=== PATIENT | male | born 1960 | race Caucasian/White ===

== ENCOUNTER 2023-05-10 10:27 | Outpatient (REF) | payer OTHER, MEDICAID, SELFPAY ==
[2023-05-10 14:05] LABS: Alanine Aminotransferase 23 U/L (0-40); Alkaline Phosphatase 103 U/L (39-117); Anion Gap 12 (12-20); Aspartate Amino Transferase 17 U/L (5-37); Bilirubin Total 0.5 mg/dL (0.0-1.0); Blood Urea Nitrogen 13 mg/dL (9-16); Calcium 9.5 mg/dL (8.4-10.2); Carbon Dioxide 28 mmol/L (22-29); Chloride 106 mmol/L (96-108); Cholesterol 112 mg/dL; Estimated Glomerular Filt Rate > 60; Glucose Fasting 133 mg/dL (60-99); HDL Cholesterol 33 mg/dL; LDL Cholesterol Calculated 60 mg/dl; Potassium 4.5 mmol/L (3.3-5.1); Sodium 141 mmol/L (135-145); Total Protein 6.6 g/dL (6.5-8.0); Triglycerides 99 mg/dL
[2023-05-10 14:13] LABS: Estimated Average Glucose 140 mg/dL; Hemoglobin A1c % 6.5 %
== END 2023-05-10 10:28 | disposition home or self-care (01) ==
LOC: HO.WFDLDS 10:27
PROVIDERS: Visit Provider Family Medicine
DX: Z00.00 Encounter for general adult medical examination without abnormal findings (principal); E78.5 Hyperlipidemia, unspecified; E11.9 Type 2 diabetes mellitus without complications
CPT/HCPCS: 36415; 80053; 80061; 83036

== ENCOUNTER 2023-07-09 11:55 | Outpatient (AMB) | payer OTHER, MEDICAID, SELFPAY ==
[2023-07-09 12:12] VITALS: BP 130/68; PULSE 68; O2SAT 95
--- NOTE | 2023-07-09 12:12 | MHC.PC.OV ---
Vital Signs 07/09/23 12:12 Height 5 ft 6.5 in Weight 189 lb BMI 30.0 BP 130/68 Blood Pressure Location Rt brachial Position Sitting Pulse 68 Pulse Source Pulse Oximeter Pulse Oximetry (%) 95 Oxygen Delivery Method Room Air Intake Visit Reasons: f/u diabetes and hypertension Intake Note: Patient is here to follow up on his diabetes and hypertension. Allergies No Known Allergies Allergy (Verified 07/09/23 12:14) Tobacco use date assessed: 07/09/23 Dental Screening Dental Screen Date: 07/09/23 Did you have a dental visit in the last 12 months?: Yes Did you have a dental problem in the last 6 months where you did not have access to dental care?: No Was dental information given to patient?: No HPI f/u diabetes and hypertension HPI Details 62 y/o male presents to f/u diabetes and hypertension. Blood pressure today 130/68. He is on spirinolactone 12.5mg daily and losartan 100mg daily. Also on metoprolol 100mg daily. He is on metformin 1000mg b.i.d., Jardiance 10mg and insulin glargine 20 units. He is tolerating his medication regimen well. He denies any low blood sugars. He reports morning blood sugars in the 90s-110s. Last A1c 05/10/23 6.5%. Pt reports pruritus on the top of his thighs. Pt reports hearing changes bilateral ears. HPI Comments History of Present Illness Details Documentation assistance for Delroy Haile MD, was provided by Andrade Zepeda, Floor Covering Installer on 07/09/2023 12:47 PM EST. I, Dr. Haile, have read, observed, and verified documentation. [facility] Social History Housing: House Patient Tobacco Use Status: Current everyday Tobacco user Tobacco use type: Cigarette Cigarettes Per Day: 15 e-Cigarette/Vaping Use: Never Used Second Hand Smoke Exposure: No service: No Current occupational status: retired and disabled Current occupational exposures/hazards: No Hearing needs: No Vision needs: No Physical exam (Primary Care) Vital Signs: Last Vital Signs Pulse 68 07/09/23 12:12 BP 130/68 07/09/23 12:12 Pulse Ox 95 07/09/23 12:12 Oxygen Delivery Method Room Air 07/09/23 12:12 BMI result Body Mass Index 30.0 Tobacco/Smoking Status: Tobacco use Status Tobacco use date assessed 07/09/23 07/09/23 12:17 Patient Tobacco Use Status Current everyday Tobacco 07/09/23 12:17 Tobacco use type Cigarette 07/09/23 12:17 e-Cigarette/Vaping Use Never Used 07/09/23 12:17 Assessment and Plan Assessment & Plan (1) Diabetes: Code(s): E11.9 - Type 2 diabetes mellitus without complications Plan: A1c 2 months ago was 6.5% which is good control. Goal is less than 7.0% His blood sugars at home are well controlled Continue current medication regimen (2) Hypertension: Code(s): I10 - Essential (primary) hypertension Plan: Blood pressure is controlled. Goal is less than 130/80 Continue current medications (3) Yeast infection of the skin: Code(s): B37.2 - Candidiasis of skin and nail Plan: Will give him a script for clotrimazole Avoid excess moisture (4) Hearing loss: Code(s): H91.90 - Unspecified hearing loss, unspecified ear Plan: Patient wants a referral to a specific ENT specialist but he does not know the name today. He will call me with the name and I will make the referral. Medications: New clotrimazole 1% 1 appl topical BID 45 grams 0RF 2 weeks Coding Level of Care Code Est Pt Level 4 (37572) Diagnoses Diabetes E11.9 Hypertension I10 Yeast infection of the skin B37.2 Hearing loss H91.90
== END 2023-07-09 12:55 | disposition home or self-care (01) ==
PROVIDERS: PCP Family Medicine; Visit Provider Family Medicine
DX: E11.9 Type 2 diabetes mellitus without complications (principal); I10 Essential (primary) hypertension; B37.2 Candidiasis of skin and nail; H91.90 Unspecified hearing loss, unspecified ear
CPT/HCPCS: 99214

== ENCOUNTER 2023-12-27 10:29 | Outpatient (AMB) | payer MEDICARE, MEDICAID, SELFPAY ==
[2023-12-27 10:41] VITALS: BP 128/78; PULSE 99; O2SAT 95; BMI 29.0
--- NOTE | 2023-12-27 10:41 | A.OFFPC_ITS ---
Vital Signs 12/27/23 10:41 Height 5 ft 6.5 in Weight 182 lb 2 oz BMI 29.0 BP 128/78 Pulse 99 Pulse Source Pulse Oximeter Pulse Oximetry (%) 95 Oxygen Delivery Method Room Air Intake Visit Reasons: f/u diabetes and hypertension Intake Note: Patient is following up on hypertension and diabetes. Patient needs refill on Lantus Solostar pen, viagra today. Allergies No Known Allergies Allergy (Verified 12/27/23 11:17) Tobacco use date assessed: 12/27/23 Dental Screening Dental Screen Date: 12/27/23 Did you have a dental visit in the last 12 months?: No Did you have a dental problem in the last 6 months where you did not have access to dental care?: No Was dental information given to patient?: Patient declined HPI HPI Comments History of Present Illness Details 6.2% Hga1c today Finger sticks reports WNL DM EYE exam - Jan 03, 2024 Unsure of who the provider is Intentional wt loss reports no issues w/ Feet HTN well controlled on current meds. NO cardiac complaints PFSH Social History Housing: House Patient Tobacco Use Status: Current everyday Tobacco user Tobacco use type: Cigarette Cigarettes Per Day: 15 e-Cigarette/Vaping Use: Never Used Second Hand Smoke Exposure: No service: No Current occupational status: retired and disabled Current occupational exposures/hazards: No Hearing needs: No Vision needs: No Questionnaire PHQ-9 Over the last 2 weeks, how often have you been bothered by any of the following problems? 1. Little interest or pleasure in doing things: several days 2. Feeling down, depressed, or hopeless: several days 3. Trouble falling or staying asleep, or sleeping too much: nearly every day 4. Feeling tired or having little energy: nearly every day 5. Poor appetite or overeating: more than half the days 6. Feeling bad about yourself - or that you are a failure or have let yourself or your family down: not at all 7. Trouble concentrating on things, such as reading the newspaper or watching television: not at all 8. Moving or speaking so slowly that other people could have noticed. Or the opposite - being so fidgety or restless that you have been moving around a lot more than usual: not at all 9. Thoughts that you would be better off or of hurting yourself in some way: not at all Total score: 10 Depression Screening Interpretation: Negative Depression Screening Done: Yes Source: Developed by Drs. Escobar Nelson, Anna Malik, Franck Bergman and colleagues, with an educational francesca from [employer]. Thrive Questionnaire Date Thrive assessed: 12/27/23 I am a: Patient What is your living situation today?: I have a steady place to live Within the past 12 months, did the food you bought not last and you didn't have the money to get more?: Never true Within the past 12 months, did you worry whether your food would run out before you got money to buy more?: Never true Do you have trouble paying for medicines?: No Do you have trouble getting transportation to medical appointments?: No Do you have trouble paying your heating and electricity bill?: No Do you have trouble taking care of your child, family member or friend?: No Do you have trouble with day-to-day activities such as bathing, preparing meals, shopping, managing finances, etc.?: No Are you currently unemployed and looking for a job?: No Are you interested in more education?: No THRIVE Score: 0 AUDIT C Alcohol Use Questionnaire (AUDIT-C) 1. How often do you have a drink containing alcohol?: Monthly or less 2. How many drinks containing alcohol do you have on a typical day when you are drinking?: 1 or 2 3. How often do you have six or more drinks on one occasion?: Never Total Score: 1 DOROTEO-7 AMB Questionnaire DOROTEO-7 Date DOROTEO - 7 assessed: 12/27/23 Feeling nervous, anxious, or on edge: 2 = More than half the days Not being able to stop or control worryin = Nearly every day Worrying too much about different things: 1 = Several days Trouble relaxin = Several days Being so restless that it is hard to sit still: 1 = Several days Becoming easily annoyed or irritable: 1 = Several days Feeling afraid as if something awful might happen: 1 = Several days Total DOROTEO-7 score (0-4 normal; 5-9 mild; 10-14 moderate; 15-21 severe): 10 Source: Developed by Drs. Escobar Nelson, Anna Malik, Franck Bergman and colleagues, with an educational francesca from [employer]. Review of Systems Const All systems reviewed & are unremarkable except as noted in HPI and below Physical exam (Primary Care) Vital Signs: Last Vital Signs Pulse 99 12/27/23 10:41 BP 128/78 12/27/23 10:41 Pulse Ox 95 12/27/23 10:41 Oxygen Delivery Method Room Air 12/27/23 10:41 BMI result Body Mass Index 29.0 Tobacco/Smoking Status: Tobacco use Status Tobacco use date assessed 12/27/23 12/27/23 10:48 Patient Tobacco Use Status Current everyday Tobacco 12/27/23 10:48 Tobacco use type Cigarette 12/27/23 10:48 e-Cigarette/Vaping Use Never Used 12/27/23 10:48 Are you ready to quit: No Tobacco cessation counseling provided: Yes Number of minutes spent counselin CPT code: 20811 - 4-10 Minutes PHQ-9: PHQ-9 Score PHQ-9: Total score 10 12/27/23 14:21 Depression Screening Interpretation: Negative Thrive Assessment: Date of Thrive Assessment Date Thrive assessed 12/27/23 12/27/23 10:56 Const Other: awake alert unkempt MMM RRR LS CTAB hairless lower ext, trace edema Feet not examined today Results AMB Hemoglobin A1c AMB Hemoglobin A1c 6.2 % Last Edit by Ivy Amaya CMA on 12/27/23 11:17 Results Reviewed Results Reviewed: Laboratory Last Values Hgb A1c (Clinic) 6.2 % (4.0-6.0) H 12/27/23 11:15 Assessment and Plan Assessment & Plan (1) Diabetes: Code(s): E11.9 - Type 2 diabetes mellitus without complications Qualifiers: Diabetes mellitus type: type 2 Diabetes mellitus termite exterminator insulin use: with termite exterminator use Diabetes mellitus complication status: with other specified complication Qualified Code(s): E11.69 - Type 2 diabetes mellitus with other sp ecified complication; Z79.4 - residential (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 (2) Hypertension: Code(s): I10 - Essential (primary) hypertension Qualifiers: Hypertension type: secondary to endocrine disorders Qualified Code(s): I15.2 - Hypertension secondary to endocrine disorders (3) Erectile dysfunction: Code(s): N52.9 - Male erectile dysfunction, unspecified Qualifiers: Erectile dysfunction type: unspecified Qualified Code(s): N52.9 - Male erectile dysfunction, unspecified Plan A1c reviewed with him today. He is due for labs. Reports that he wishes to wait for his primary care to order these at his next visit scheduled in March. He should continue his diabetes regimen to include his insulin and his oral medications. I have sent in refills for him as requested. His blood pressure is well controlled on current medications. He should continue to take them as directed. He should follow low-salt diet. Monitor blood pressure at home. Report readings also normal range. Annual diabetic eye exam recommended. Foot care reviewed. Tobacco cessation encouraged. Refill sent on Viagra as requested. Reports that he has been taking p.r.n. for some time with no cardiac events. Total time spent caring for the patient today was 37 minutes. This includes time spent before the visit reviewing the chart, time spent during the visit, and time spent after the visit on documentation Orders: Orders AMB Hemoglobin A1c Today Z13.9 - Encounter for screening, unspecified Medications: Refilled insulin glargine (Lantus Solostar U-100 Insulin) 20 units (0.2 mL) subcut QPM 30 days 6 mL 3RF sildenafil 100 mg PO DAILY 30 days 30 tabs 4RF insulin glargine (Lantus Solostar U-100 Insulin) 20 units (0.2 mL) subcut QPM 30 days 6 mL 3RF sildenafil 100 mg PO DAILY 30 days 30 tabs 4RF Coding Level of Care Code Est Pt Level 4 (08677) Diagnoses Type 2 diabetes mellitus with other specified complication, with long-term current use of insulin E11.69; Z79.4 Diabetes mellitus type: type 2 Diabetes mellitus custodial insulin use: with termite exterminator use Diabetes mellitus complication status: with other specified complication Hypertension due to endocrine disorder I15.2 Hypertension type: secondary to endocrine disorders Erectile dysfunction, unspecified erectile dysfunction type N52.9 Erectile dysfunction type: unspecified Additional Codes Vital Signs *Quality* - CPT code: 07980 - 4-10 Minutes ([id number])
== END 2023-12-27 11:27 | disposition home or self-care (01) ==
PROVIDERS: PCP Family Medicine; Visit Provider Nurse Practitioner Family
DX: E11.69 Type 2 diabetes mellitus with other specified complication (principal); Z79.4 Long term (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; I15.2 Hypertension secondary to endocrine disorders; N52.9 Male erectile dysfunction, unspecified
CPT/HCPCS: 83036; 99214

== ENCOUNTER 2024-05-19 14:44 | Outpatient (AMB) | payer MEDICARE, MEDICAID, SELFPAY ==
[2024-05-19 14:48] VITALS: BP 128/72; PULSE 100; O2SAT 96; BMI 27.0
--- NOTE | 2024-05-19 14:48 | A.OFFPC_ITS ---
Vital Signs 05/19/24 14:48 Height 5 ft 6.5 in Weight 170 lb 2 oz BMI 27.0 BP 128/72 Blood Pressure Location Lt brachial Position Sitting Pulse 100 Pulse Source Pulse Oximeter Pulse Oximetry (%) 96 Oxygen Delivery Method Room Air Intake Visit Reasons: Pain Mgmt Intake Note: Patient is concerned about passing gas a lot lately, states he may be due for his colonoscopy. Allergies No Known Allergies Allergy (Verified 05/19/24 14:55) Medication List - Last Reconciled 05/19/24 by Delroy Haile MD atorvastatin 40 mg PO DAILY 90 days bupropion HCl SR 200 mg PO BID buspirone 15 mg PO BID clotrimazole 1% 1 appl topical BID 2 weeks empagliflozin (Jardiance) 10 mg PO DAILY fluoxetine 40 mg PO DAILY insulin glargine (Basaglar KwikPen U-100 Insulin) 20 units (0.2 mL) subcut DAILY 30 days insulin glargine (Lantus Solostar U-100 Insulin) 20 units (0.2 mL) subcut QPM 30 days losartan 100 mg PO DAILY metformin 1,000 mg PO BID 90 days metoprolol succinate ER 100 mg PO DAILY nicotine (polacrilex) 2 mg buccal Q4H PRN 28 days olanzapine 2.5 mg PO BEDTIME PRN pen needle, diabetic (BD Mildred 2nd Gen Pen Needle) Daily As directed, 90 days sildenafil 100 mg PO DAILY 30 days spironolactone 12.5 mg PO DAILY topiramate 150 mg PO BEDTIME trazodone 200 mg PO BEDTIME PRN Tobacco use date assessed: 05/19/24 Dental Screening Dental Screen Date: 12/27/23 HPI Pain Mgmt HPI Details 63 y/[facility] male [facility] A1c today 05/19/24 is 5.7%. Blood pressure today 128/72. He is on losartan 100mg, metoprolol 100mg daily and spironolactone 12.5mg daily. Pt has complaints of gassiness. [facility] Social History Housing: House Patient Tobacco Use Status: Current everyday Tobacco user Tobacco use type: Cigarette Cigarettes Per Day: 15 e-Cigarette/Vaping Use: Never Used Second Hand Smoke Exposure: No service: No Current occupational status: retired and disabled Current occupational exposures/hazards: No Hearing needs: No Vision needs: No Questionnaire Thrive Questionnaire Date Thrive assessed: 12/27/23 DOROTEO-7 AMB Questionnaire DOROTEO-7 Date DOROTEO - 7 assessed: 12/27/23 Source: Developed by Drs. Escobar Nelson, Anna Malik, Franck Bergman and colleagues, with an educational francesca from [employer]. Review of Systems Const Denies chills, Denies fatigue, Denies fever(s), Denies headache(s) and Denies weakness Eyes Denies change in vision ENT Denies dizziness, Denies headache(s), Denies hearing loss, Denies nasal congestion, Denies sinus pain, Denies sinus pressure and Denies sore throat Card Denies chest pain, Denies lightheadedness, Denies dyspnea and Denies other (palpitations) Resp Denies cough, Denies dyspnea and Denies wheezing GI Denies abdominal pain, Denies melena, Denies hematochezia, Denies change in bowel habits, Denies dyspepsia and Denies nausea Denies hematuria and Denies dysuria Musc Denies abnormal gait, Denies myalgias, Denies arthralgias, Denies numbness and Denies tingling Skin/Breast Denies rash, Denies unusual bruising and Denies wounds Neuro Denies abnormal gait, Denies dizziness, Denies headache(s), Denies memory loss, Denies numbness, Denies Sensory deficit (Neuro), Denies tingling and Denies weakness Psych Denies anxiety, Denies depression and Denies memory loss Endo Denies cold intolerance, Denies fatigue, Denies heat intolerance, Denies polydipsia and Denies polyuria David/Lymph Denies easy bleeding and Denies easy bruising Aller/Immun Denies wheezing Physical exam (Primary Care) Vital Signs: Last Vital Signs Pulse 100 05/19/24 14:48 BP 128/72 05/19/24 14:48 Pulse Ox 96 05/19/24 14:48 Oxygen Delivery Method Room Air 05/19/24 14:48 BMI result Body Mass Index 27.0 Tobacco/Smoking Status: Tobacco use Status Tobacco use date assessed 05/19/24 05/19/24 14:55 Patient Tobacco Use Status Current everyday Tobacco 05/19/24 14:49 Tobacco use type Cigarette 05/19/24 14:49 e-Cigarette/Vaping Use Never Used 05/19/24 14:49 Thrive Assessment: Date of Thrive Assessment Date Thrive assessed 12/27/23 05/19/24 14:49 Const General: no acute distress, well developed, alert and awake Nutritional Appearance: well nourished Orientation/consciousness: patient oriented x3 HENMT Head: Yes normocephalic and Yes atraumatic Ears: hearing grossly normal bilaterally and TM's normal bilaterally General nose exam: Normal external nose present and Normal nares present Mouth: Normal oral and palatal mucosa present and moist mucous membranes Teeth and gingiva: dentition normal Throat: Yes posterior oropharynx normal Eyes General: appearance normal, both eyes and all related structures Pupils: Equal, round and reactive pupils present and Pupil accommodation reflex normal EOM: EOMs intact bilaterally Neck Neck: Yes normal visual inspection, Yes no lymphadenopathy and Yes trachea midline Thyroid: Thyroid normal Carotids: no bruits Lymphatic: no lymphadenopathy noted Chest Chest palpation & inspection: normal inspection of the chest Resp Effort & Inspection: normal respiratory effort Auscultation: clear to auscultation bilaterally Cardio Rate: regular rate Rhythm: regular rhythm Heart sounds: S1 normal heart sound present, S2 normal heart sound present, no gallops, no murmurs and no rubs Bruits: no abdominal aortic bruits and no carotid bruits GI Palpation (GI): No Abdominal aortic bruit present, Soft to palpation, nontender, No hepatosplenomegaly present and No Rebound tenderness present Auscultation: normal bowel sounds General: Yes no CVA tenderness Back/Spine/Pelvis Back: no CVA tenderness Cervical Spine: cervical ROM normal and No Cervical spine tenderness Thoracic/Lumbar Spine: thoraco-lumbar ROM normal, No pain with thoraco-lumbar ROM, No thoracic spinal tenderness and No lumbar spinal tenderness Skin Lesions: no lesions Rashes: no rashes Trauma: no lacerations or abrasions Wounds: no wounds Nails: normal Neuro General: patient oriented x3 Cranial nerves: Yes Equal, round and reactive pupils present Cognition (Neuro): normal cognition Gait exam (Neuro): Normal gait present Motor exam (neuro): 5/5 motor strength present throughout Sensory Exam: No Sensory deficit (Neuro) Deep tendon reflexes (DTR's): Right patellar reflex intensity grade: 2+ and Left patellar reflex intensity grade: 2+ Extrem General: Yes normal to inspection and No edema Psych Appearance: grossly normal Affect: normal affect Attitude: cooperative Thought process: Normal thought process present Results AMB Hemoglobin A1c AMB Hemoglobin A1c 5.7 % Last Edit by Ivy Amaya CMA on 05/19/24 15:14 Assessment and Plan Assessment & Plan (1) Hypertension: Code(s): I10 - Essential (primary) hypertension Qualifiers: Hypertension type: secondary to endocrine disorders Qualified Code(s): I15.2 - Hypertension secondary to endocrine disorders Plan: Blood?pressure?is?controlled.??Goal?is?less?than?130/80 Continue?current?medication?regimen (2) Diabetes: Code(s): E11.9 - Type 2 diabetes mellitus without complications Qualifiers: Diabetes mellitus complication status: with other specified complication Diabetes mellitus terminal makeup operator insulin use: with penitentiary use Diabetes mellitus type: type 2 Qualified Code(s): E11.69 - Type 2 diabetes mellitus with other specified complication; Z79.4 - custodial (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 Plan: A1c?5.7%?shows?good?control.??Goal?is?less?than?7.0% Continue?current?medication (3) Coronary artery disease: Code(s): I25.10 - Atherosclerotic heart disease of [place] coronary artery without angina pectoris Plan: Stable Follow-up?with?Cardiology?as?recommended (4) Screening for colon cancer: Code(s): Z12.11 - Encounter for screening for malignant neoplasm of colon Plan: Patient?is?uncertain?when?his?last?colonoscopy?was?but?thinks?it?may?h ave?been?around?7?years?ago?and?he?does?note?that?he?has?had?some?polyps?in?the? past. Referred?back?to?Dr. Prater (5) Gassiness: Code(s): R14.0 - Abdominal distension (gaseous) Plan: Trial?simethicone Smaller?meals Increase?hydration Follow-up?with?Gastroenterology If?worsening?or?not?improving,?he?can?get?GI?panel?done. Orders: Orders AMB Hemoglobin A1c Today Z13.9 - Encounter for screening, unspecified Lipid Panel Today Z00.00 - Encounter for general adult medical examination without abnormal findings UA and rflx microscopic Today Z00.00 - Encounter for general adult medical examination without abnormal findings TSH reflex Free T4 Today Z00.00 - Encounter for general adult medical exa mination without abnormal findings GI Panel Today R14.0 - Abdominal distension (gaseous) Comprehensive [place]. Panel Fast Today Z00.00 - Encounter for general adult medical examination without abnormal findings Microalbumin, Random (w Creat) Today I10 - Essential (primary) hypertension Referrals Gastroenterology Referral R14.0 - Abdominal distension (gaseous), Z12.11 - Encounter for screening for malignant neoplasm of colon Medications: New simethicone 80 mg PO BID-QID 30 days PRN 120 tabs 2RF Gas Coding Level of Care Code Est Pt Level 4 (93810) Diagnoses Hypertension due to endocrine disorder I15.2 Hypertension type: secondary to endocrine disorders Type 2 diabetes mellitus with other specified complication, with long-term current use of insulin E11.69; Z79.4 Diabetes mellitus complication status: with other specified complication Diabetes mellitus penitentiary insulin use: with terminal makeup operator use Diabetes mellitus type: type 2 Coronary artery disease I25.10 Screening for colon cancer Z12.11 Gassiness R14.0
== END 2024-05-19 15:29 | disposition home or self-care (01) ==
PROVIDERS: PCP Family Medicine; Visit Provider Family Medicine
DX: I15.2 Hypertension secondary to endocrine disorders (principal); E11.69 Type 2 diabetes mellitus with other specified complication; Z79.4 Long term (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; I25.10 Atherosclerotic heart disease of native coronary artery without angina pectoris; Z12.11 Encounter for screening for malignant neoplasm of colon; R14.0 Abdominal distension (gaseous)
CPT/HCPCS: 83036; 99214

== ENCOUNTER 2024-08-26 11:24 | Outpatient (AMB) | payer MEDICARE, MEDICAID, SELFPAY ==
--- NOTE | 2024-08-26 11:38 | A.OFFPC_ITS ---
Vital Signs 08/26/24 11:40 Height 5 ft 6.5 in Weight 150 lb 8 oz BMI 23.9 BP 110/60 Blood Pressure Location Rt brachial Position Sitting Respiration 16 Pulse 93 Pulse Source Pulse Oximeter Temp 97.7 F Temp Source Tympanic Pulse Oximetry (%) 98 Oxygen Delivery Method Room Air Intake Visit Reasons: lump pubic area Intake Note: lump in pubic area Allergies No Known Allergies Allergy (Verified 08/26/24 11:39) Tobacco use date assessed: 05/19/24 Dental Screening Dental Screen Date: 12/27/23 HPI lump pubic area 2 HPI Details 64 y/o male presents with complaints of a lump in his pubic area. He notes he noticed the lump a few months ago. Denies any pain associated with it. Denies any fevers/chills/night sweats. [facility] Social History Housing: House Patient Tobacco Use Status: Current everyday Tobacco user Tobacco use type: Cigarette Cigarettes Per Day: 15 e-Cigarette/Vaping Use: Never Used Second Hand Smoke Exposure: No service: No Current occupational status: retired and disabled Current occupational exposures/hazards: No Hearing needs: No Vision needs: No Questionnaire Thrive Questionnaire Date Thrive assessed: 12/27/23 DOROTEO-7 AMB Questionnaire DOROTEO-7 Date DOROTEO - 7 assessed: 12/27/23 Source: Developed by Drs. Escobar Nelson, Anna Malik, Franck Bergman and colleagues, with an educational francesca from [employer]. Review of Systems Const Denies chills, Denies fatigue, Denies fever(s), Denies headache(s) and Denies weakness ENT Denies dizziness and Denies headache(s) Card Denies dyspnea Resp Denies cough, Denies dyspnea, Denies wheezing and Denies other (shortness of breath) Musc Denies numbness and Denies tingling Neuro Denies dizziness, Denies headache(s), Denies numbness, Denies tingling and Denies weakness Psych Denies anxiety and Denies depression Endo Denies fatigue Aller/Immun Denies wheezing Physical exam (Primary Care) Vital Signs: Last Vital Signs Temp 97.7 F 08/26/24 11:40 Pulse 93 08/26/24 11:40 Resp 16 08/26/24 11:40 BP 110/60 08/26/24 11:40 Pulse Ox 98 08/26/24 11:40 Oxygen Delivery Method Room Air 08/26/24 11:40 BMI result Body Mass Index 23.9 Tobacco/Smoking Status: Tobacco use Status Tobacco use date assessed 05/19/24 08/26/24 11:42 Patient Tobacco Use Status Current everyday Tobacco 08/26/24 11:42 Tobacco use type Cigarette 08/26/24 11:42 e-Cigarette/Vaping Use Never Used 08/26/24 11:42 Thrive Assessment: Date of Thrive Assessment Date Thrive assessed 12/27/23 08/26/24 11:42 Const General: well developed; No acute distress Nutritional Appearance: well nourished Orientation/consciousness: patient oriented x3 HENMT Head: Yes normocephalic and Yes atraumatic Eyes General: appearance normal, both eyes and all related structures Pupils: Equal, round and reactive pupils present EOM: EOMs intact bilaterally Resp Effort & Inspection: normal respiratory effort Neuro General: patient oriented x3 and gait normal Cranial nerves: Yes Equal, round and reactive pupils present Psych Affect: normal affect Assessment and Plan Assessment & Plan (1) Inguinal mass: Code(s): R19.09 - Other intra-abdominal and pelvic swelling, mass and lump Plan: Patient?has?right?inguinal?mass?which?manually?reduces?but?returns. Begin?with?straining?during?bowel?movements. Likely?right?inguinal?hernia Will?check?ultrasound Referred?to?general?surgery Advised?patient?to go?to?ED?if?no?longer?manually?reducible,?any?fever,?chills,?nausea,?vomiting,?d ecreased?gas?or?bowel?movements. Hydrate?well?and?keep?bowel?movements?soft Orders: Orders US abdomen limited Today R19.09 - Other intra-abdominal and pelvic swelling, mass and lump Referrals General Surgery Referral R19.09 - Other intra-abdominal and pelvic swelling, mass and lump Coding Level of Care Code Est Pt Level 3 (80277) Diagnoses Inguinal mass R19.09
[2024-08-26 11:40] VITALS: BP 110/60; PULSE 93; RESP 16; TEMP 36.5; O2SAT 98; BMI 23.9
== END 2024-08-26 12:24 | disposition home or self-care (01) ==
PROVIDERS: PCP Family Medicine; Visit Provider Family Medicine
DX: R19.09 Other intra-abdominal and pelvic swelling, mass and lump (principal)

== ENCOUNTER → 2024-08-26 11:24 | Outpatient (BNVA) | payer MEDICARE, MEDICAID, SELFPAY | PROVIDERS: PCP Family Medicine; Visit Provider Family Medicine | DX: R19.09 Other intra-abdominal and pelvic swelling, mass and lump (principal) | CPT/HCPCS: 99212 ==

== ENCOUNTER 2024-09-11 08:40 | Outpatient (REF) | payer MEDICARE, MEDICAID, SELFPAY ==
[2024-09-11 11:18] LABS: Appearance Urine Clear; Color Urine Yellow; Glucose Urine UA >=1000 mg/dL (Negative); Leukocyte Esterase Urine Negative (Negative); Nitrite Urine Negative (Negative); Specific Gravity - Urine >= 1.030 (1.005-1.025); UMIC TRIGGER UA YES; Urine Blood Trace (Negative); Urine Ketones Trace mg/dL (Negative); Urine Protein Trace mg/dL (Neg-Trace)
[2024-09-11 11:25] LABS: Bacteria Urine None Seen (None Seen); Hyaline Casts Urine 0-2 /LPF (0-2); Squamous Epithelial Cell Urine 0-2 /HPF (0-2); WBC Urine 0-5 /HPF (0-5)
[2024-09-11 11:54] LABS: Creatinine Urine 135.33 mg/dL; Microalbum/Creatinine Ratio Ur 18.4 ug/mg cr (<30)
[2024-09-11 11:56] LABS: Alanine Aminotransferase 20 U/L (0-40); Albumin Level 4.1 g/dL (3.5-5.0); Alkaline Phosphatase 81 U/L (39-117); Anion Gap 13 (12-20); Aspartate Amino Transferase 18 U/L (5-37); Bilirubin Total 0.4 mg/dL (0.0-1.0); Blood Urea Nitrogen 22 mg/dL (9-16); Calcium 9.7 mg/dL (8.4-10.2); Carbon Dioxide 27 mmol/L (22-29); Chloride 108 mmol/L (96-108); Cholesterol 118 mg/dL (<200); Estimated Glomerular Filt Rate > 60; Glucose Fasting 97 mg/dL (60-99); HDL Cholesterol 38 mg/dL (>40); LDL Cholesterol Calculated 64 mg/dL (<100); Potassium 4.1 mmol/L (3.3-5.1); Sodium 144 mmol/L (135-145); Total Protein 6.9 g/dL (6.5-8.0); Triglycerides 83 mg/dL (<150)
[2024-09-11 12:15] LABS: TSH reflex Free T4 2.47 uIU/mL (0.32-4.0)
== END 2024-09-11 08:41 | disposition home or self-care (01) ==
LOC: HO.WFDLDS 08:40
PROVIDERS: Visit Provider Family Medicine
DX: Z00.00 Encounter for general adult medical examination without abnormal findings (principal); I10 Essential (primary) hypertension
CPT/HCPCS: 36415; 80053; 80061; 81001; 82043; 82570; 84443

== ENCOUNTER 2024-10-12 13:56 | Outpatient (AMB) | payer MEDICARE, MEDICAID, SELFPAY ==
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
[2024-10-12 14:10] VITALS: BP 100/50; PULSE 96; RESP 14; O2SAT 97; BMI 23.5
== END 2024-10-12 14:47 | disposition home or self-care (01) ==
PROVIDERS: PCP Family Medicine; Visit Provider Physician Assistant
DX: I15.2 Hypertension secondary to endocrine disorders (principal); E78.5 Hyperlipidemia, unspecified; E11.69 Type 2 diabetes mellitus with other specified complication; Z79.4 Long term (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; F41.8 Other specified anxiety disorders; F17.210 Nicotine dependence, cigarettes, uncomplicated; R05.3 Chronic cough; R63.4 Abnormal weight loss

== ENCOUNTER → 2024-10-12 13:56 | Outpatient (BNVA) | payer MEDICARE, MEDICAID, SELFPAY | PROVIDERS: PCP Family Medicine; Visit Provider Physician Assistant | DX: I15.2 Hypertension secondary to endocrine disorders (principal); E11.9 Type 2 diabetes mellitus without complications; E78.5 Hyperlipidemia, unspecified; F41.8 Other specified anxiety disorders; R05.3 Chronic cough; R63.4 Abnormal weight loss; F17.200 Nicotine dependence, unspecified, uncomplicated; Z79.4 Long term (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; Z71.6 Tobacco abuse counseling | CPT/HCPCS: 96127; 99212 ==

== ENCOUNTER 2024-10-12 14:52 | Outpatient (REF) | payer MEDICARE, MEDICAID, SELFPAY ==
[2024-10-12 17:39] LABS: Alanine Aminotransferase 31 U/L (0-40); Albumin Level 4.3 g/dL (3.5-5.0); Alkaline Phosphatase 84 U/L (39-117); Anion Gap 14 (12-20); Aspartate Amino Transferase 31 U/L (5-37); Bilirubin Total 0.3 mg/dL (0.0-1.0); Blood Urea Nitrogen 17 mg/dL (9-16); Calcium 9.6 mg/dL (8.4-10.2); Carbon Dioxide 20 mmol/L (22-29); Chloride 108 mmol/L (96-108); Estimated Glomerular Filt Rate > 60; Glucose Fasting 131 mg/dL (60-99); Potassium 4.1 mmol/L (3.3-5.1); Sodium 138 mmol/L (135-145); Total Protein 7.2 g/dL (6.5-8.0)
[2024-10-12 17:48] LABS: Creatinine Urine 71.01 mg/dL; Microalbum/Creatinine Ratio Ur 12.6 ug/mg cr (<30)
[2024-10-12 17:52] LABS: B Type Natriuretic Peptide 28 pg/mL (<100)
[2024-10-12 17:53] LABS: TSH reflex Free T4 1.83 uIU/mL (0.32-4.0)
[2024-10-12 18:08] LABS: Prostate Specific Antigen Scr < 0.10 ng/mL (<0.05-4.0)
[2024-10-13 03:28] LABS: CT PCR NOT DETECTED (Not Detect.); NG PCR NOT DETECTED (Not Detect.)
[2024-10-13 07:19] LABS: Estimated Average Glucose 117 mg/dL; Hemoglobin A1C 126.1927 umol/L; Hemoglobin A1c % 5.7 % (<6.0); Total Hemoglobin (HGBA1C) 3293.3795 umol/L
[2024-10-13 08:20] LABS: HIV AB/AG Nonreactive (Nonreactive); HIV Num 1 0.06 S/CO (0.00-0.99); ~HepC Num1 0.06 S/CO (0.00-0.79); ~Hepatitis C Antibody Nonreactive (Nonreactive)
[2024-10-13 08:29] LABS: Syphilis Screen Nonreactive (Nonreactive)
[2024-10-13 13:58] LABS: C Peptide 3.25 ng/mL (0.80-3.85)
[2024-10-16 20:38] LABS: Glutamic acid decarboxylase Ab <5 IU/mL (<5)
[2024-10-16 23:57] LABS: Islet Cell Antibody Screen NEGATIVE (NEGATIVE)
== END 2024-10-12 14:53 | disposition home or self-care (01) ==
LOC: HO.WFDLDS 14:52
PROVIDERS: Visit Provider Physician Assistant
DX: E11.9 Type 2 diabetes mellitus without complications (principal); Z79.4 Long term (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; F41.8 Other specified anxiety disorders; E78.5 Hyperlipidemia, unspecified; I15.2 Hypertension secondary to endocrine disorders; Z20.2 Contact with and (suspected) exposure to infections with a predominantly sexual mode of transmission; Z01.89 Encounter for other specified special examinations; Z12.5 Encounter for screening for malignant neoplasm of prostate
CPT/HCPCS: 80053; 82043; 82570; 83036; 83880; 84153; 84443; 84681; 86341; 86780; 86803; 87389; 87491; 87591

== ENCOUNTER 2024-11-12 15:08 | Outpatient (AMB) | payer MEDICARE, MEDICAID, SELFPAY ==
--- NOTE | 2024-11-12 15:30 | MHC.PC.OV ---
Vital Signs 11/12/24 15:32 Height 5 ft 6.5 in Weight 151 lb 2 oz BMI 24.0 BP 118/58 L Blood Pressure Location Lt brachial Position Sitting Pulse 93 Pulse Source Pulse Oximeter Pulse Oximetry (%) 97 Oxygen Delivery Method Room Air Intake Visit Reasons: labs, weight loss Intake Note: Follow up Supervisor Wash House Required: No Allergies No Known Allergies Allergy (Verified 10/12/24 14:03) Medication List - Last Reconciled 11/12/24 by Guera Vilchis PA-C atorvastatin 40 mg PO DAILY 90 days blood sugar diagnostic (FreeStyle Lite Strips) Use daily As directed to check blood glucose blood-glucose meter (FreeStyle Lite Meter kit) Use daily As directed to check blood sugars blood-glucose meter,continuous (FreeStyle Sheng 3 [place]) Use daily As directed to monitor blood glucose blood-glucose sensor (FreeStyle Sheng 3 Sensor device) Apply every 14 days As directed to monitor blood glucose bupropion HCl SR 200 mg PO BID buspirone 15 mg PO BID clotrimazole 1% 1 appl topical BID 2 weeks empagliflozin (Jardiance) 10 mg PO DAILY fluoxetine 40 mg PO DAILY glucose (Dex4 Glucose) 16 grams (4 x 4 gram) PO Q15M PRN insulin glargine (Lantus Solostar U-100 Insulin) 20 units (0.2 mL) subcut QPM 30 days lancets (FreeStyle Lancets) use daily as directed to check blood glucose losartan 25 mg PO DAILY metformin 1,000 mg PO BID 90 days metoprolol succinate ER 100 mg PO DAILY multivitamin 1 tab PO DAILY nicotine (polacrilex) 2 mg buccal Q4H PRN 28 days olanzapine 2.5 mg PO BEDTIME PRN pen needle, diabetic (BD Mildred 2nd Gen Pen Needle) Daily As directed, 90 days [probiotic .] sildenafil 100 mg PO DAILY 30 days simethicone 80 mg PO BID-QID PRN 30 days spironolactone 12.5 mg PO DAILY topiramate 150 mg PO BEDTIME trazodone 200 mg PO BEDTIME PRN Tobacco use date assessed: 10/12/24 Dental Screening Dental Screen Date: 10/12/24 HPI labs, weight loss HPI Details Patient is a 64-year-old male with a significant past medical history of coronary artery disease, type 2 diabetes, hypertension, hyperlipidemia, history of prostate cancer, anxiety, depression, erectile dysfunction presenting today for a follow up regarding his weight and labs. He states that he is worried because over the last year he has lost about 40 lbs. He states that he has a very limited appetite. His weight today is stable. No n/v/d. No abdominal pain. Just feeling tired. His CT scan is scheduled for next week. He does smoke and has since the age of 21. He is not in the low-dose CT scan screening program. He smokes about a pack a day. He does have a cough but states it is unchanged and he states that this is has smoker's cough. No night sweats or back pain. CV: BP today is 118/58. At our last I reduced his losartan as his blood pressure was 100/50. He is on losartan 50 mg, spironolactone 12.5 mg, metoprolol 100 mg daily. cholesterol is managed with atorvastatin. Follows with cardiology and booked in December. No cp, sob, palpitations. Endo: Dm is managed with lantus 20 units, jardiance 10 mg, and metformin 1000 mg. Last a1c was 5.7. No hypoglycemia. Dx around 2013 Psych: He is on wellbutrin, buspar, prozac, trazodone, topamax and olanzapine. No SI/HI. Urology: has a hx of prostate ca per pt around 2006. He states he had a total prostatectomy. Colonoscopy: Following with Marian[facility] and states that he just had this done last month and it was not successful. They have to redo it. Last one was 2013 and had a tubular adenoma. [facility] Social History (Reviewed 10/12/24 @ 14:08 by Karis Villarreal [facility] [place]) Housing: House Patient Tobacco Use Status: Current everyday Tobacco user Tobacco use type: Cigarette Cigarettes Per Day: 15 e-Cigarette/Vaping Use: Never Used Second Hand Smoke Exposure: No service: No Current occupational status: retired and disabled Current occupational exposures/hazards: No Hearing needs: No Vision needs: No Questionnaire Thrive Questionnaire Date Thrive assessed: 10/12/24 I am a: Patient What is your living situation today?: I have a steady place to live Within the past 12 months, did the food you bought not last and you didn't have the money to get more?: Sometimes True Within the past 12 months, did you worry whether your food would run out before you got money to buy more?: Sometimes True Do you have trouble paying for medicines?: No Do you have trouble getting transportation to medical appointments?: No Do you have trouble paying your heating and electricity bill?: No Do you have trouble taking care of your child, family member or friend?: No Do you have trouble with day-to-day activities such as bathing, preparing meals, shopping, managing finances, etc.?: No Are you currently unemployed and looking for a job?: I choose not to answer this question Are you interested in more education?: No Please select the resources that you would like help with: Food THRIVE Score: 2 DOROTEO-7 AMB Questionnaire DOROTEO-7 Date DOROTEO - 7 assessed: 10/12/24 Source: Developed by Drs. Escobar Nelson, Anna Malik, Franck Bergman and colleagues, with an educational francesca from [employer]. Physical exam (Primary Care) Vital Signs: Last Vital Signs Pulse 93 11/12/24 15:32 BP 118/58 L 11/12/24 15:32 Pulse Ox 97 11/12/24 15:32 Oxygen Delivery Method Room Air 11/12/24 15:32 BMI result Body Mass Index 24.0 Tobacco/Smoking Status: Tobacco use Status Tobacco use date assessed 10/12/24 11/12/24 15:34 Patient Tobacco Use Status Current everyday Tobacco 11/12/24 15:34 Tobacco use type Cigarette 11/12/24 15:34 e-Cigarette/Vaping Use Never Used 11/12/24 15:34 Thrive Assessment: Date of Thrive Assessment Date Thrive assessed 10/12/24 11/12/24 15:34 Const Orientation/consciousness: patient oriented x3 HENMT Ears: hearing grossly normal bilaterally Neck Thyroid: Thyroid normal Lymphatic: no lymphadenopathy noted Resp Auscultation: clear to auscultation bilaterally Cardio Rate: regular rate Rhythm: regular rhythm Heart sounds: S1 normal heart sound present and S2 normal heart sound present GI Inspection: Yes normal to inspection Palpation (GI): Soft to palpation and Other GI palpation findings present (nontender, no cva tenderness) Auscultation: normoactive bowel sounds Rectal Exam - Male: Yes deferred Skin General skin exam: no rashes or lesions noted Neuro General: patient oriented x3, gait normal and no focal motor deficits Results Reviewed Results Reviewed: Laboratory Tests 10/12/24 10/12/24 14:54 15:05 Sodium 138 Potassium 4.1 Chloride 108 Carbon Dioxide 20 L Fasting Glucose 131 H AST 31 ALT 31 B-Natriuretic Peptide 28 PSA Screen < 0.10 TSH 1.83 Microalb/Creat Ratio 12.6 Hepatitis C Ab (EIA) Nonreactive HIV 1&2 Ab/P24 Ag 4thGn Nonreactive Coding Level of Care Code Est Pt Level 4 (92143) Complex EM visit Add On G2211 Diagnoses Decreased hearing H91.90 Weight loss R63.4 Hypertension due to endocrine disorder I15.2 Hypertension type: secondary to endocrine disorders Assessment & Plan Assessment & Plan (1) Decreased hearing: Code(s): H91.90 - Unspecified hearing loss, unspecified ear Category: Medical Plan: Requests a referral to ENT today as he sometimes feels like it is hard to hear out of his ears. Does not want to see audiology prefers ENT. (2) Weight loss: Code(s): R63.4 - Abnormal weight loss Category: Medical Plan: Stable. We will follow up pending imaging. (3) Hypertension: Code(s): I10 - Essential (primary) hypertension Category: Medical Qualifiers: Hypertension type: secondary to endocrine disorders Qualified Code(s): I15.2 - Hypertension secondary to endocrine disorders Plan: We will reduce losartan further to 25 mg. Follow up in a couple months to be reassessed. Sooner if needed. Orders: Referrals Ear/Nose/Throat Referral H91.90 - Unspecified hearing loss, unspecified ear Medications: New losartan 25 mg PO DAILY 90 tabs 3RF Discontinued losartan Discontinued Reason: Doctor's Order 50 mg PO DAILY 90 tabs 2RF
[2024-11-12 15:32] VITALS: BP 118/58; PULSE 93; O2SAT 97; BMI 24.0
== END 2024-11-12 16:09 | disposition home or self-care (01) ==
PROVIDERS: PCP Family Medicine; Visit Provider Physician Assistant
DX: H91.90 Unspecified hearing loss, unspecified ear (principal); R63.4 Abnormal weight loss; I15.2 Hypertension secondary to endocrine disorders

== ENCOUNTER → 2024-11-12 15:08 | Outpatient (BNVA) | payer MEDICARE, MEDICAID, SELFPAY | PROVIDERS: PCP Family Medicine; Visit Provider Physician Assistant | DX: H91.90 Unspecified hearing loss, unspecified ear (principal); R63.4 Abnormal weight loss; I15.2 Hypertension secondary to endocrine disorders | CPT/HCPCS: 99212 ==

== ENCOUNTER 2024-12-22 15:59 | Outpatient (REF) | payer MEDICARE, SELFPAY ==
--- NOTE | ~2024-12-22 | CT_ITS ---
CLINICAL HISTORY: R05.3 - Chronic cough CT chest with contrast Comparison: None Findings: Heart is normal in size. There is a trace anterior pericardial effusion. Coronary artery calcifications are present. The visualized thyroid and mediastinum are unremarkable. There is eventration of the left hemidiaphragm. Mild linear atelectasis is seen in the lingula and left lower lobe. 3 mm subpleural left upper lobe nodule (axial image 27 of series 3) and 5 mm left lower lobe nodule (axial image 34) are present. Limited examination of the upper abdomen demonstrates a 2.2 cm lipid rich right adrenal gland adenoma. There is mild nonspecific thickening of bilateral adrenal glands. 8 mm nonobstructive left renal stone is present. There is also a 3.8 cm simple left renal cyst. Severe degenerative changes are seen in the spine. No acute osseous abnormality is identified. No aggressive lytic or blastic lesion is seen. IMPRESSION: 1. Eventration of the left hemidiaphragm with mild adjacent atelectasis in the left lower lobe and lingula. 2. 5 mm and 3 mm left lung nodules. According to Fleischner society guidelines, if patient is at high risk for neoplasm, follow-up CT chest in 12 months is optional. 3. 8 mm nonobstructive left renal stone. 4. Other findings as described. This document has been electronically signed by: Daniel Fink on 12/23/2024 08:56:12
--- NOTE | ~2024-12-22 | CT_ITS ---
CLINICAL HISTORY: R63.4 - Abnormal weight loss CT abdomen and pelvis with contrast Comparison: None Findings: For the lower thoracic and left hemidiaphragmatic findings please refer to the same-day chest CT report. A few too small to characterize hepatic hypodense/ intermediate density lesions. Bilateral adrenal gland hyperplasia measuring up to 18 mm in thickness. Simple left renal cyst and too small to characterize right renal hypodensity.Small bilateral nonobstructive renal stones. No hydronephrosis or perinephric fat stranding. Vascular calcifications. Colonic diverticulosis without diverticulitis. Moderate stool in the colon and rectum. No bowel obstruction. Appendix not individualized and therefore could not be evaluated. No evidence of right lower quadrant fatty inflammatory fat changes. Small uncomplicated fat containing right inguinal hernia. A few small foci of mild subcutaneous fat stranding in the superficial subcutaneous fat of the ventral abdominal wall may be due to scarring versus less likely cellulitis or contusion. Correlate clinically. Otherwise unremarkable abdominopelvic viscera. No evidence of enlarged lymphadenopathy. Spinal degenerative changes. Multilevel small Schmorl nodules. 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 Focal deformity of the anterior aspect of the S3 and S4 vertebral bodies due to more likely chronic than acute injury. Correlate clinically. IMPRESSION: Small bilateral nonobstructive renal stones. Moderate stool in the colon and rectum. No bowel obstruction. A few small foci of mild subcutaneous fat stranding in the superficial subcutaneous fat of the ventral abdominal wall may be due to scarring versus less likely cellulitis or contusion. Correlate clinically. Focal deformity of the anterior aspect of the S3 and S4 vertebral bodies due to more likely chronic than acute fracture. Correlate clinically. This document has been electronically signed by: Melissa Mittal MD on 12/23/2024 11:45:37
[2024-12-22] MEDS: iohexoL 350 MG/ML 100 ML INFUS..BTL IV (17:15)
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
--- OUTSIDE RECORDS SUMMARY | 2024-12-22 17:41 | XMS_ITS | Encounter Summary ---
Author Organization [facility] Address [address] [place] [address] Care Team Providers Care Imagery Intelligence Name Role Phone Delroy Haile MD Primary Care Provider [phone] Reason for Referral * Cardiac Stress Testing (Routine) - Authorized Specialty Diagnoses / Procedures Referred By Mark booth Referred To Contact Cardiology Diagnoses Coronary artery disease involving cowlitz coronary artery of cowlitz heart without angina pectoris Ischemic cardiomyopathy HFrEF (heart failure with reduced ejection fraction) (CMS/HCC) Procedures Nuclear stress test with myocardial perfusion KS MYOCARDIAL PERFUSION IMAGING TOMOGRAPHIC MULTI STUDIES AT REST OR STRESS KS MYOCARDIAL PERFUSION IMAGING TOMOGRAPHIC SINGLE STUDY AT REST OR STRESS KS CARDIOVASCULAR STRESS TEST GLOBAL KS CV TMST/BIKE MAX/SUBMAX CONTINUOUS ECG MON/PHARM STRESS SUPVSR ONLY KS CV STRESS TEST/BIKE CONT ECG MON/PHARM STRESS INTERP & REPORT ONLY KS TEST STRESS CARDIOVASCULAR TRACING ONLY Zuri Don NP [address] [place] [address] [facility] Referral ID Status Reason Start Date Expiration Date V isits Requested Visits Authorized [id number] Authorized 12/07/2024 12/07/2025 1 1 * Imaging (Routine) - Pending Review Specialty Diagnoses / Procedures Referred By Mark booth Referred To Contact Cardiology Diagnoses Coronary artery disease involving cowlitz coronary artery of cowlitz heart without angina pectoris Ischemic cardiomyopathy HFrEF (heart failure with reduced ejection fraction) (CMS/HCC) Procedures Transthoracic echocardiogram (TTE) complete with PRN contrast, bubble, strain, and 3D order panel KS TTE W 2D IMAGE COMPLETE W DOPPLER ECHO & COLOR FLOW DOPPLER ECHO KS MAGUE 2D COMPLETE W/CONTRAST OR W & WO CONTRAST WITH DOPPLER Zuri Don NP [address] [place] [address] [facility] Referral ID Status Reason Start Date Expiration Date V isits Requested Visits Authorized [id number] Pending Review 12/07/2024 12/07/2025 1 1 Reason for Visit * Reason Comments Follow-up Encounter Details Date Type Department Care Team (Late st Contact Info) Description 12/07/2024 10:40 AM EST Office Visit [facility] - [address] [place] [address] Zuri Don NP [address] [place] [address] Coronary artery disease involving cowlitz coronary artery of cowlitz heart without angina pectoris (Primary Dx); Ischemic cardiomyopathy; HFrEF (heart failure with reduced ejection fraction) (CMS/[facility], [facility]) Social History Tobacco Use Types Packs/Day Years Used Date Smoking Tobacco: Former Cigarettes Smokeless Tobacco: Never Tobacco Cessation:Counseling Given: Not Answered Alcohol Use Standard Drinks/Week Comments Not Currently [...] on file documented as of this encounter Last Filed Vital Signs Vital Sign Reading Time Taken Comments Blood Pressure 122/82 12/07/2024 10:48 AM EST Pulse 71 12/07/2024 10:48 AM EST Temperature - - Respiratory Rate - - Oxygen Saturation 97% 12/07/2024 10:48 AM EST Inhaled Oxygen Concentration - - Weight 68.5 kg (151 lb) 12/07/2024 10:48 AM EST Height 172.7 cm (5' 8 ) 12/07/2024 10:48 AM EST Body Mass Index 22.96 12/07/2024 10:48 AM EST documented in this encounter Progress Notes * Zuri Don NP - 12/07/2024 10:40 AM ESTAssociated Problem(s): Coronary artery disease involving cowlitz coronary artery of cowlitz heart with out angina pectoris Patient denies any anginal symptoms. He does however experience increased fatigue and decreased activity intolerance since his last office visit. Subsequently, we will evaluate for ischemia with a nuclear stress test. Ideally this would be an exercise stress test however can be converted to regadenoson if the patient is unable to safely walk on the treadmill. This time he will continue on cardioprotective medical therapy of aspirin, statin and beta- deborah. Instructed to call 911 or go to the emergency room should the patient begin to experience chest pain or pressure lasting greater than 10 minutes does not resolve with rest. Orders: ECG 12 lead Transthoracic echocardiogram (TTE) complete with PRN contrast, bubble, strain, and 3D order panel; Future Nuclear stress test with myocardial perfusion; Future Lipid panel; Future * Zuri Don NP - 12/07/2024 10:40 AM ESTAssociated Problem(s): Ischemic cardiomyopathy Refer to care plan for HFrEF. Orders: Transthoracic echocardiogram (TTE) complete with PRN contrast, bubble, strain, and 3D order panel; Future Nuclear stress test with myocardial perfusion; Future Lipid panel; Future * Zuri Don NP - 12/07/2024 10:40 AM EST Images from the original note were not included. [facility] PRIMARY GLASS BLOCK BENDER: Nasim Dean MD PCP: Delroy Haile MD HPI: Armando Martinez is a 64 y.o. old male with past medical history of coronary artery disease, hypertension, ischemic cardiomyopathy and hyperlipidemia. Member 2015 patient underwent urgent cardiac catheterization at [facility] during admission for STEMI. Revealed a normal left main coronary artery disease 100% stenosis in the proximal LAD which was noted to be the culprit lesion. Normal left circumflex and a normal RCA. Subsequently, he received a drug-eluting stent to the proximal LAD. Echocardiogram performed in November 2020 in the setting of ischemic cardiomyopathy. LV was not well-seen and this was a difficult study. It appeared to be grossly normal in size however could not rule out any regional wall motion abnormalities. Global hypokinesis with an LVEF of 45 to 50%. Normal RV systolic function. Updated again in July 2022. Again unable to accurately assess cavity size and wall thickness given poor acoustic windows despite the use of Definity. Apical akinesis and global hypokinesis was noted. Moderately reduced systolic function estimated to be 35 to 40% with likely grade 1 diastolic dysfunction. Normal RV size and function. Atria normal in size. Patient was last seen in our office in March [address] Dean. He continued to smoke and did endorse mild breathlessness. He had been titrated on GDMT for HFrEF. He presents today for routine cardiology follow-up. Patient denies chest pain, pressure, dizziness,lightheadedness, presyncope or syncope. He does endorse increased fatigue and breathlessness which has worsened since his last office visit. He does state compliance with his medications. He quit smoking 4 days ago and has been commended for his efforts. Of note, the patient has had an unintentional weight loss of greater than 50 pounds and is being worked up by his PCP. He has had no falls or cardiac related hospitalizations since his last office visit. ACTIVE MEDICATIONS: Outpatient Medications Marked as Taking for the 12/07/24 encounter (Office Visit) with Zuri Don NP Medication Sig Dispense Refill aspirin 81 mg EC tablet Take 1 tablet (81 mg total) by mouth 1 (one) time each day. atorvastatin (LIPITOR) 20 mg tablet Take 1 tablet (20 mg total) by mouth 1 (one) time each day. atorvastatin (LIPITOR) 40 mg tablet Take 1 tablet (40 mg total) by mouth at bedtime. buPROPion SR (WELLBUTRIN SR) 200 mg 12 hr tablet Take 1 tablet (200 mg total) by mouth 1 (one) timeeach day. busPIRone (BUSPAR) 15 mg tablet Take 1 tablet (15 mg total) by mouth 1 (one) time each day. empagliflozin (Jardiance) 10 mg tablet Take 1 tablet (10 mg total) by mouth 1 (one) time each day. FLUoxetine (PROzac) 40 mg capsule insulin glargine (LANTUS) 100 unit/mL injection Inject 20 Units under the skin at bedtime. TOOK 10 UNITS LAST NIGHT lactobacillus acidoph-l.bulgar 100 million cell granules in packet Take 1 packet by mouth 1 (one) time each day. losartan (COZAAR) 50 mg tablet Take 1 tablet (50 mg total) by mouth 1 (one) time each day. metFORMIN (GLUCOPHAGE) 1,000 mg tablet Take 1 tablet (1,000 mg total) by mouth 1 (one) time each day. metoprolol succinate (TOPROL-XL) 100 mg 24 hr tablet Take 1 tablet (100 mg total) by mouth 1 (one) time each day. mirtazapine (REMERON) 15 mg tablet Take 1 tablet (15 mg total) by mouth 1 (one) time each day. multivitamin tablet Take 1 tablet by mouth 1 (one) time each day. sildenafiL (VIAGRA) 50 mg tablet Take 1 tablet (50 mg total) by mouth as needed. simethicone (MYLICON) 80 mg chewable tablet Chew 1 tablet (80 mg total) every 6 (six) hours if needed for flatulence. spironolactone (ALDACTONE) 25 mg tablet TAKE 1/2 TABLET BY MOUTH EVERY DAY topiramate (TOPAMAX) 100 mg tablet Take 1 tablet (100 mg total) by mouth 1 (one) time each day. traZODone (DESYREL) 100 mg tablet Take 1 tablet (100 mg total) by mouth at bedtime. PAST MEDICAL HISTORY: Patient Active Problem List Diagnosis Coronary artery disease involving cowlitz coronary artery of cowlitz heart without angina pectoris Essential hypertension Hyperlipidemia Ischemic cardiomyopathy ALLERGIES: No Known Allergies SOCIAL HISTORY: Social History Tobacco Use Smoking status: Former Current packs/day: 0.50 Types: Cigarettes Smokeless tobacco: Never Substance Use Topics Alcohol use: Not Currently PHYSICAL EXAM: Vitals: 12/07/24 1048 BP: 122/82 Pulse: 71 SpO2: 97% Weight: 68.5 kg (151 lb) Height: 1.727 m (68 ) Physical Exam Constitutional: General: He is not in acute distress. HENT: Head: Normocephalic. Eyes: Pupils: Pupils are equal, round, and reactive to light. Cardiovascular: Rate and Rhythm: Normal rate and regular rhythm. Pulses: Normal pulses. Heart sounds: Normal heart sounds. No murmur heard. No friction rub. No gallop. Pulmonary: Effort: Pulmonary effort is normal. No respiratory distress. Breath sounds: No wheezing, rhonchi or rales. Abdominal: General: Abdomen is flat. Bowel sounds are normal. There is no distension. Palpations: Abdomen is soft. Musculoskeletal: General: No swelling. Normal range of motion. Cervical back: Normal range of motion. Right lower leg: No edema. Left lower leg: No edema. Skin: General: Skin is warm and dry. Neurological: Mental Status: He is alert and oriented to person, place, and time. Mental status is at baseline. Psychiatric: Mood and Affect: Mood normal. Thought Content: Thought content normal. EKG: Encounter Date: 12/07/24 ECG 12 lead Result Value Ventricular Rate ECG 71 Atrial Rate 71 P-R Interval 180 QRS Duration 128 Q-T Interval 434 QTc 471 P Wave [place] 76 R [place] 82 T [place] 66 ECG Interpretation Normal sinus rhythm Right bundle branch block *Note: Due to a large number of results and/or encounters for the requested time period, some results have not been displayed. A complete set of results can be found in Results Review. TESTING: BMP reviewed from October 2024 revealing normal kidney function and electrolytes. Last fasting lipid profile on file this for November 2022. This revealed an LDL of 100. ASSESSMENT/PLAN: Assessment & Plan Coronary artery disease involving cowlitz coronary artery of cowlitz heart without angina pectoris Patient denies any anginal symptoms. He does however experience increased fatigue and decreased activity intolerance since his last office visit. Subsequently, we will evaluate for ischemia with a nuclear stress test. Ideally this would be an exercise stress test however can be converted to regadenoson if the patient is unable to safely walk on the treadmill. This time he will continue on cardioprotective medical therapy of aspirin, statin and beta- deborah. Instructed to call 911 or go to the emergency room should the patient begin to experience chest pain or pressure lasting greater than 10 minutes does not resolve with rest. Orders: ECG 12 lead Transthoracic echocardiogram (TTE) complete with PRN contrast, bubble, strain, and 3D order panel; Future Nuclear stress test with myocardial perfusion; Future Lipid panel; Future Ischemic cardiomyopathy Refer to care plan for HFrEF. Orders: Transthoracic echocardiogram (TTE) complete with PRN contrast, bubble, strain, and 3D order panel; Future Nuclear stress test with myocardial perfusion; Future Lipid panel; Future HFrEF (heart failure with reduced ejection fraction) (CMS/HCC) He appears to be euvolemic upon exam today. He will continue on guideline directed medical therapy of Jardiance, losartan, metoprolol and spironolactone. We will update echocardiogram to further evaluate improvement in his LVEF. We could consider transitioning to Entresto. Encouraged to continue tofollow a low- sodium diet and perform daily weights. Patient will reach out to our office with a weight gain of 2 pounds in 1 day or 5 pounds in 5 days accompanied by worsening peripheral edema, shortness of breath or abdominal distention. Orders: Transthoracic echocardiogram (TTE) complete with PRN contrast, bubble, strain, and 3D order panel; Future Nuclear stress test with myocardial perfusion; Future Lipid panel; Future Thank you for allowing us to participate in the care of this patient. The patient will follow up in6 months, sooner PRN. As per AHA guidelines and previously established plan of care by Dr. Nasim Dean MD, we discussed the following today: 1. Coronary artery disease involving cowlitz coronary artery of cowlitz heart without angina pectoris 2. Ischemic cardiomyopathy 3. HFrEF (heart failure with reduced ejection fraction) (CMS/HCC) [facility] documented in this encounter Plan of Treatment Upcoming Encounters Date Type Department Care Team (Late st Contact Info) Description 12/29/2024 8:30 AM EST Ancillary Procedure [facility] - [address] [place] [address] 01/14/2025 11:00 AM EST Appointment [facility] [address] [place] [phone] Aakash Prater MD [address] [place] [address] 01/25/2025 11:00 AM EST Ancillary Procedure [facility] - [address] [place] [address] Scheduled Orders Name Type Priority Associated Diagnoses Order Schedule Transthoracic echocardiogram (TTE) complete with PRN contrast, bubble, strain, and 3D order panel Echocardiography Routine Coronary artery disease involving cowlitz coronary artery of cowlitz heart without angina pectoris Ischemic cardiomyopathy HFrEF (heart failure with reduced ejection fraction) ([facility]/HCC) 1 Occurrences starting 12/07/2024 until 12/07/2025 Nuclear stress test with myocardial perfusion Cardiac Nuclear Medicine Routine Coronary artery disease involving cowlitz coronary artery of cowlitz heart without angina pectoris Ischemic cardiomyopathy HFrEF (heart failure with reduced ejection fraction) (CMS/HCC) 1 Occurrences starting 12/07/2024 until 12/07/2025 Lipid panel Lab Routine Coronary artery disease involving cowlitz coronary artery of cowlitz heart without angina pectoris Ischemic cardiomyopathy HFrEF (heart failure with reduced ejection fraction) (CMS/HCC) Expected: 12/07/2024, Expires: 12/07/2025 documented as of this encounter Procedures Procedure Name Priority Date/Time Associated Diagnosis Comments ECG 12-LEAD Routine 12/07/2024 11:26 AM EST Coronary artery disease involving cowlitz coronary artery of cowlitz heart without angina pectoris documented in this encounter Results * ECG 12 lead (12/07/2024 11:26 AM EST) Ventricular Rate ECG 71 BPM GEMUSE Atrial Rate 71 BPM GEMUSE P-R Interval 180 ms GEMUSE QRS Duration 128 ms GEMUSE Q-T Interval 434 ms GEMUSE QTc 471 ms GEMUSE P Wave [place] 76 degrees GEMUSE R [place] 82 degrees GEMUSE T [place] 66 degrees GEMUSE ECG Interpretation Normal sinus rhythm Right bundle branch block Abnormal ECG Confirmed by MD Jermaine, Nasim ([id number]) on 12/08/2024 10:31:31 AM GEMUSE 12/07/2024 10:5 6 AM EST 12/08/2024 10:31 AM EST Zuri Don NP ECG ORDERABLES GEMUSE documented in this encounter Visit Diagnoses Diagnosis Coronary artery disease involving cowlitz coronary artery of cowlitz heart without angina pectoris- Primary Ischemic cardiomyopathy Other specified forms of chronic ischemic heart disease HFrEF (heart failure with reduced ejection fraction) ([facility], [facility]) documented in this encounter Historical Medications * This list may reflect changes made after this encounter. Medication Sig Dispensed Refills Start Date End Date multivitamin tablet Take 1 tablet by mouth 1 (one) time each day. lactobacillus acidoph-l.bulgar 100 million cell granules in packet Take 1 packet by mouth 1 (one) time each day. added in this encounter Care Teams Imagery Intelligence Relationship Specialty Start Date End Date Delroy Haile MD [address] [place] [address] [address] [place] PCP - General 03/28/23 documented as of this encounter
--- OUTSIDE RECORDS SUMMARY | 2024-12-22 17:41 | XMS_ITS | Clinical Summary ---
Author Organization [facility] Address [address] [place] [address] Phone Care Team Providers Care Field Talent Qualification Specialist Name Role Phone Delroy Haile MD Primary Care Provider [phone] Allergies No known active allergies Medications Medication Sig Dispensed Refills Start Date End Date Status metFORMIN (GLUCOPHAGE) 1,000 mg tablet Take 1 tablet (1,000 mg total) by mouth 1 (one) time each day. Active atorvastatin (LIPITOR) 40 mg tablet Take 1 tablet (40 mg total) by mouth at bedtime. Active losartan (COZAAR) 50 mg tablet Take 1 tablet (50 mg total) by mouth 1 (one) time each day. Active simethicone (MYLICON) 80 mg chewable tablet Chew 1 tablet (80 mg total) every 6 (six) hours if needed for flatulence. Active traZODone (DESYREL) 100 mg tablet Take 1 tablet (100 mg total) by mouth at bedtime. Active FLUoxetine (PROzac) 40 mg capsule Active topiramate (TOPAMAX) 100 mg tablet Take 1 tablet (100 mg total) by mouth 1 (one) time each day. Active aspirin 81 mg EC tablet Take 1 tablet (81 mg total) by mouth 1 (one) time each day. Active empagliflozin (Jardiance) 10 mg tablet Take 1 tablet (10 mg total) by mouth 1 (one) time each day. Active insulin glargine (LANTUS) 100 unit/mL injection Inject 20 Units under the skin at bedtime. TOOK 10 UNITS LAST NIGHT Active spironolactone (ALDACTONE) 25 mg tablet TAKE 1/2 TABLET BY MOUTH EVERY DAY 08/31/2024 Active sildenafiL (VIAGRA) 50 mg tablet Take 1 tablet (50 mg total) by mouth as needed. Active mirtazapine (REMERON) 15 mg tablet Take 1 tablet (15 mg total) by mouth 1 (one) time each day. Active atorvastatin (LIPITOR) 20 mg tablet Take 1 tablet (20 mg total) by mouth 1 (one) time each day. 11/19/2019 Active metoprolol succinate (TOPROL-XL) 100 mg 24 hr tablet Take 1 tablet (100 mg total) by mouth 1 (one) time each day. 12/04/2022 Active busPIRone (BUSPAR) 15 mg tablet Take 1 tablet (15 mg total) by mouth 1 (one) time each day. 09/30/2024 Active buPROPion SR (WELLBUTRIN SR) 200 mg 12 hr tablet Take 1 tablet (200 mg total) by mouth 1 (one) time each day. 09/30/2024 Active lactobacillus acidoph-l.bulgar 100 million cell granules in packet Take 1 packet by mouth 1 (one) time each day. Active multivitamin tablet Take 1 tablet by mouth 1 (one) time each day. Active Hospital, Clinic, or Other Facility Administered Medication Ordered Dose Route Frequency Start Date End Date Status TC-99M tetrofosmin P radio-isotope injection 10.6 millicurie 10.6 millicurie IV Once in imaging 12/18/2024 12/18/2024 Ende d TC-99M tetrofosmin P radio-isotope injection 28.8 millicurie 28.8 millicurie IV Once in imaging 12/18/2024 12/18/2024 Ende d regadenoson (LEXISCAN) injection 0.4 mg 0.4 mg IV Once in imaging 12/18/2024 12/18/2024 End ed Active Problems Problem Noted Date Diagnosed Date Coronary artery disease invo lving port graham coronary artery of [place] heart without angina pectoris 06/14/2021 Overview (10/21/2024): proximal LAD with only luminal irregularities in the other major epicardial vessels. Last Assessment & Plan: Patient has no anginal symptoms to his current MET workload. He does state that he is predominantly sedentary has no formal exercise program. He is encouraged to move his body as much as he can. Continue ongoing medical therapy with aspirin, beta- deborah, statin. Assessment & Plan (12/07/2024 11:26 AM EST): Patient denies any anginal symptoms. He does [...] cardioprotective medical therapy of aspirin, statin and beta-deborah. Instructed to call 911 or go to the emergency room should the patient begin to experience chest pain or pressure lasting greater than 10 minutes does not resolve with rest. Orders: ECG 12 lead Transthoracic echocardiogram (TTE) complete with PRN contrast, bubble, strain, and 3D order panel; Future Nuclear stress test with myocardial perfusion; Future Lipid panel; Future Essential hypertension 06/14/2021 Overview (10/21/2024): Last Assessment & Plan: Patient's blood pressures well controlled on current regimen. Continue for now his aldosterone blockade, ARB and beta-deborah. Hyperlipidemia 06/14/2021 Overview (10/21/2024): Last Assessment & Plan: Patient's last lipid profile that we have on record is still from 2018 he has had labs updated since his last visit. Have given him a lab slip to update his cholesterol profile at his earliest convenience. Ischemic cardiomyopathy 06/14/2021 Overview (10/21/2024): The EF 25% at the time of his DC Improved to 45-50% November 2020 Last Assessment & Plan: The patient's LVEF has recovered with catheter directed medical therapy and 25% of the time of his DC to 40-50% in November 2020. He has no symptoms to suggest congestion but he does have diminished lung sounds at his left base. Therefore, will obtain a two-view chest x-ray. His oxygen saturation is stable at 97% and he denies any shortness of breath symptoms. We will continue his medical therapy with beta-deborah, ARB and aldosterone blockade. We will update his echocardiogram about 6 months from now unless there is a significant finding on his chest x-ray, and a follow-up with Dr. Dean thereafter. His LVEF dropped, could consider changing his ARB to Entresto. Consideration can also be given to SGLT 2 inhibitor given his cardiomyopathy and diabetes. Assessment & Plan (12/07/2024 11:26 AM EST): Refer to care plan for HFrEF. Orders: Transthoracic echocardiogram (TTE) complete with PRN contrast, bubble, strain, and 3D order panel; Future Nuclear stress test with myocardial perfusion; Future Lipid panel; Future Encounters Date Type Department Care Team Description 12/07/2024 10:40 AM EST Office Visit [facility] - [address] [place] [phone] Zuri Don NP Coronary artery disease involving port graham coronary artery of port graham heart without angina pectoris (Primary Dx); Ischemic cardiomyopathy; HFrEF (heart failure with reduced ejection fraction) ([facility]) 12/04/2024 Telephone Gastroenterology - [address] [place] [phone] 11/06/2024 Telephone Gastroenterology - [address] [place] [phone] 11/04/2024 Telephone Gastroenterology - [address] [place] [phone] Aakash Prater MD 10/27/2024 10:31 AM EST Anesthesia Event [facility] [address] [place] [address] Jared Menjivar MD Chang, Ling, CRNA 10/27/2024 9:35 AM EST - 10/27/2024 11:59 PM EST Hospital Encounter [facility] [address] [place] [address] Aakash Prater MD Spencer, Mark A, MD Hx of colonic polyps Discharge Disposition: Home or Self Care from Last 3 Months Surgical History Surgery Date Site/Laterality Comments PROSTATECTOMY Medical History Medical History Date Comments Diabetes mellitus ([facility]) Hypertension Hyperlipidemia CAD (coronary artery disease) STEMI (ST elevation myocardial infarction) (CMS/ HCC) ONE HEART STENT Family History Medical History Relation Name Comments Stroke Father Heart failure Mother Relation Name Status Comments Father Mother Social History Tobacco Use Types Packs/Day Years [...] file Not on file Not on file Obstetrics History Last Filed Vital Signs Vital Sign Reading Time Taken Comments Blood Pressure 140/83 12/18/2024 9:54 AM EST Pulse 71 12/07/2024 10:48 AM EST Temperature 36 ??C (96.8 ??F) 10/27/2024 10:18 AM EST Respiratory Rate 16 10/27/2024 11:03 AM EST Oxygen Saturation 97% 12/07/2024 10:48 AM EST Inhaled Oxygen Concentration - - Weight 69.4 kg (153 lb) 12/18/2024 9:40 AM EST Height 172.7 cm (5' 8 ) 12/18/2024 9:40 AM EST Body Mass Index 23.26 12/18/2024 9:40 AM EST Plan of Treatment Upcoming Encounters Date Type Department Care Team (Late st Contact Info) Description 12/29/2024 8:30 AM EST Ancillary Procedure [facility] [address] [phone] 01/14/2025 11:00 AM EST Appointment [facility] [address] [place] [phone] Aakash Prater MD [address] [address] 01/25/2025 11:00 AM EST Ancillary Procedure [facility] [address] [phone] Health Maintenance Due Date Last Done Comments Diabetes: Annual Foot Exam 1971 Diabetes: Annual Retina Eye Exam 1971 Zoster Vaccines (1 of 2) 2011 RSV Immunization Patients 60 + Years Old (1 - Risk 60-74 years 1-dose series) 2021 Cholesterol Screening (Lipid Panel) 11/10/2022 Depression Screening 11/10/2022 HIV Screening 11/10/2022 Hepatitis C Screening 11/10/2022 Medicare Annual Wellness Visit 11/10/2022 Social Influencers of Health Screening 11/10/2022 COVID-19 Vaccine (3 - 2023-2 5 season) 2024 04/15/2021, 03/25/2021 Influenza Vaccine (#1) 2024 07/07/2017 Diabetes: Annual Urine Albumin-Creatinine Ratio (uACR) 10/27/2024 Diabetes: Blood Sugar Contro l Test (HGBA1C) 10/27/2024 Diabetes: Annual GFR (Glomerular Filtration Rate) 10/26/2025 10/26/2024 Hypertension/CHF/CAD Annual BMP Blood Test 10/26/2025 10/26/2024 DTaP,Tdap,and Td Vaccines (2 - Td or Tdap) 11/14/2027 11/14/2017 Colorectal Cancer Screening: Colonoscopy 10/27/2034 10/27/2024 Pneumococcal Vaccine: Pediatrics (0 to 5 Years) and At-Risk Patients (6 to 64 Years) Aged Out 01/06/2017 No longer eligible b ased on patient's age to complete this topic HIB Vaccines Aged Out No longer eligi ble based on patient's age to complete this topic HPV Vaccines Aged Out No longer eligi ble based on patient's age to complete this topic Hepatitis A Vaccines Aged Out No long er eligible based on patient's age to complete this topic Hepatitis B Vaccines Aged Out No long er eligible based on patient's age to complete this topic IPV Vaccines Aged Out No longer eligi ble based on patient's age to complete this topic MMR Vaccines Aged Out No longer eligi ble based on patient's age to complete this topic Meningococcal ACWY Vaccine Aged Out N o longer eligible based on patient's age to complete this topic RSV Immunization Patients Under 20 months Aged Out No longer eligible b ased on patient's age to complete this topic Varicella Vaccines Aged Out No longer eligible based on patient's age to complete this topic Procedures Procedure Name Priority Date/Time Associated Diagnosis Comments ECG 12-LEAD Routine 12/07/2024 11:26 AM EST Coronary artery disease involving port graham coronary artery of port gra[place] heart without angina pectoris COLONOSCOPY Routine 10/27/2024 10:42 AM EST Hx of colonic polyps BASIC METABOLIC PANEL Routine 10/26/2024 2:04 PM EST from Last 3 Months Results * ECG 12 lead (12/07/2024 11:26 AM EST) Ventricular Rate ECG 71 BPM GEMUSE Atrial Rate 71 BPM GEMUSE P-R Interval 180 ms GEMUSE QRS Duration 128 ms GEMUSE Q-T Interval 434 ms GEMUSE QTc 471 ms GEMUSE P Wave [place] 76 degrees GEMUSE R [place] 82 degrees GEMUSE T [place] 66 degrees GEMUSE ECG Interpretation Normal sinus rhythm Right bundle branch block Abnormal ECG Confirmed by MD Jermaine, Nasim ([id number]) on 12/08/2024 10:31:31 AM GEMUSE 12/07/2024 10:5 6 AM EST 12/08/2024 10:31 AM EST Zuri Don NP ECG ORDERABLES GEMUSE * COLONOSCOPY Anesthesia - MAC; [facility] END[facility]COPY (10/27/2024 10:42 AM EST) Anatomical Region Laterality Modality Other 10/27/2024 10:3 1 AM EST Impressions 11/03/2024 9:49 AM EST - Preparation of the colon was unsatisfactory. ? - Stool in the transverse colon. ? - No specimens collected. Recommendation: ?- Patient has a contact number available for ? emergencies. The signs and symptoms of potential ? delayed complications were discussed with the patient. ? Return to normal activities tomorrow. Written ? discharge instructions were provided to the patient. ? - Resume previous diet. ? - Continue present medications. Narrative 11/03/2024 9:49 AM EST [facility] GI Patient Name: Armando Martinez Procedure Date: 10/27/2024 10:31 AM Date of : 1960 Age: 64 Gender: Male Note Status: Finalized Attending MD: Aakash Prater MD, Procedure Date No Time: 10/27/2024 Procedure: ? Colonoscopy Indications: ? High risk colon cancer surveillance: Personal history ? of colonic polyps Providers: ? Aakash Prater MD Referring MD: ?Aakash Prater MD Medicines: ? Monitored Anesthesia Care Complications: ? No immediate complications. Estimated Blood Loss: ? Estimated blood loss: none. Procedure: ? After I obtained informed consent, the scope was ? passed under direct vision. Throughout the procedure, ? the patient's blood pressure, pulse, and oxygen ? saturations were monitored continuously.The ? Colonoscope was introduced through the anus with the ? intention of advancing to the cecum. The scope was ? advanced to the transverse colon before the procedure ? was aborted. Medications were given. The colonoscopy ? was performed without difficulty. The patient ? tolerated the procedure well. The quality of the bowel ? preparation was unsatisfactory. Findings: ?A moderate amount of stool was found in the transverse ? colon, precluding visualization. As I advanced the ? colonoscope, more and more stool. Reached a point ? where I just could not clear out the colon (scope kept ? jamming), and so withdrew the scope. MD Aakash Kenney MD 11/03/2024 9:49:27 AM This report has been signed electronically.Aakash Prater MD Number of Addenda: 0 Note Initiated On: 10/27/2024 10:31 AM Scope In: Scope Out: ? Endoscopy Department at [facility] - [address] [place] [address], ? [place] [address] Procedure Note Aakash Prater MD - 11/03/2024 [facility] GI Patient Name: Armando Martinez Procedure Date: 10/27/2024 10:31 AM Date of : 1960 Age: 64 Gender: Male Note Status: Finalized Attending MD: Aakash Prater MD, Procedure Date No Time: 10/27/2024 Procedure: Colonoscopy Indications: High risk colon cancer surveillance: Personalhistory of colonic polyps Providers: Aakash Prater MD Referring MD: Aakash Prater MD Medicines: Monitored Anesthesia Care Complications: No immediate complications. Estimated Blood Loss: Estimated blood loss: none. Procedure: After I obtained informed consent, the scope was passed under direct vision. Throughout theprocedure, the patient's blood pressure, pulse, and oxygen saturations were monitored continuously.The Colonoscope was introduced through the anus withthe intention of advancing to the cecum. The scope was advanced to the transverse colon before theprocedure was aborted. Medications were given. Thecolonoscopy was performed without difficulty. The patient tolerated the procedure well. The quality of thebowel preparation was unsatisfactory. Findings: A moderate amount of stool was found in thetransverse colon, precluding visualization. As I advanced the colonoscope, more and more stool. Reached a point where I just could not clear out the colon (scopekept jamming), and so withdrew the scope. MD Aakash Kenney MD 11/03/2024 9:49:27 AM This report has been signed electronically.Aakash Prater MD Number of Addenda: 0 Note Initiated On: 10/27/2024 10:31 AM Scope In: Scope Out: Endoscopy Department at [facility] - [address] [place] [phone] IMPRESSION: - Preparation of the colon was unsatisfactory. - Stool in the transverse colon. - No specimens collected. Recommendation: - Patient has a contact number available for emergencies. The signs and symptoms of potential delayed complications were discussed with thepatient. Return to normal activities tomorrow. Written discharge instructions were provided to thepatient. - Resume previous diet. - Continue present medications. Aakash Prater MD GI~PROCEDURE ORDERAB LES * (ABNORMAL) Basic metabolic panel (10/26/2024 2:04 PM EST) Glucose 110(H) 70 - 99 mg/dL [facility] 1 Blood Urea Nitrogen (BUN) 17 8 - 27 mg/dL [facility] 1 Creatinine 0.89 0.76 - 1.27 mg/dL [facility] 1 eGFR 96 >59 mL/min/1.7 3 [facility] 1 BUN/Creatinine Ratio 19 10 - 24 [facility] 1 Sodium 138 134 - 144 mmol/L [facility] 1 Potassium 4.4 3.5 - 5.2 mmol/L [facility] 1 Chloride 101 96 - 106 mmol/L [facility] 1 Carbon Dioxide 18(L) 20 - 29 mmol/L [facility] 1 Calcium 9.6 8.6 - 10.2 mg/dL [facility] 1 10/26/2024 2:04 PM EST 10/26/2024 Narrative [facility] 1 - 10/27/2024 3:06 AM EST Performed at: ??01 - [facility] [address] ??[id number] School Inspector: Vikki Quiros MD, Phone: ??[phone] Nasim Dean MD LAB BLOOD ORDERAB LES [facility] 1 from Last 3 Months Care Teams Field Talent Qualification Specialist Relationship Specialty Start Date End Date Delroy Haile MD [address] [place] [address] Dr Ebonie [place] PCP - General 03/28/23
[2024-12-23 15:12] LABS: Creatinine POC 0.8 mg/dL (0.5-1.4); GFR POC > 60
== END 2024-12-22 16:00 | disposition home or self-care (01) ==
LOC: HO.CT 15:59
PROVIDERS: PCP Family Medicine; Visit Provider Physician Assistant
DX: R05.3 Chronic cough (principal); R63.4 Abnormal weight loss
CPT/HCPCS: 71260; 74177; 82565; Q9967

== ENCOUNTER → 2024-12-22 16:02 | Outpatient (BNV) | payer MEDICARE, SELFPAY | PROVIDERS: PCP Family Medicine; Visit Provider Radiology Vascular & Interventional Radiology | DX: R63.4 Abnormal weight loss (principal); R05.3 Chronic cough | CPT/HCPCS: 71260 ==

== ENCOUNTER 2024-12-31 10:09 | Outpatient (AMB) | payer MEDICARE, SELFPAY ==
--- NOTE | 2024-12-31 10:14 | MHC.PC.OV ---
Vital Signs 12/31/24 10:25 Height 5 ft 6.5 in Weight 159 lb 8 oz BMI 25.4 BP 110/64 Blood Pressure Location Lt brachial Position Sitting Pulse 81 Pulse Source Pulse Oximeter Pulse Oximetry (%) 97 Oxygen Delivery Method Room Air Intake Visit Reasons: f/u bp and weight Intake Note: Follow up blood pressure. Numerical Control Tool Programmer Required: No Allergies No Known Allergies Allergy (Verified 12/31/24 10:20) Medication List - Last Reconciled 12/31/24 by Guera Vilchis PA-C atorvastatin 40 mg PO DAILY 90 days blood sugar diagnostic (FreeStyle Lite Strips) Use daily As directed to check blood glucose blood-glucose meter (FreeStyle Lite Meter kit) Use daily As directed to check blood sugars blood-glucose meter,continuous (FreeStyle Sheng 3 [place]) Use daily As directed to monitor blood glucose blood-glucose sensor (FreeStyle Sheng 3 Sensor device) Apply every 14 days As directed to monitor blood glucose bupropion HCl SR 200 mg PO BID buspirone 15 mg PO BID clotrimazole 1% 1 appl topical BID 2 weeks docusate sodium (Colace) 100 mg PO DAILY empagliflozin (Jardiance) 10 mg PO DAILY fluoxetine 40 mg PO DAILY glucose (Dex4 Glucose) 16 grams (4 x 4 gram) PO Q15M PRN insulin glargine (Lantus Solostar U-100 Insulin) 20 units (0.2 mL) subcut QPM 30 days lancets (FreeStyle Lancets) use daily as directed to check blood glucose losartan 25 mg PO DAILY metoprolol succinate ER 100 mg PO DAILY multivitamin 1 tab PO DAILY olanzapine 2.5 mg PO BEDTIME PRN pen needle, diabetic (BD Mildred 2nd Gen Pen Needle) Daily As directed, 90 days [probiotic .] sildenafil 100 mg PO DAILY 30 days simethicone 80 mg PO BID-QID PRN 30 days spironolactone 12.5 mg PO DAILY topiramate 150 mg PO BEDTIME trazodone 200 mg PO BEDTIME PRN Tobacco use date assessed: 12/31/24 Dental Screening Dental Screen Date: 10/12/24 HPI f/u bp and weight HPI Details Patient is a 64-year-old male with a significant past medical history of coronary artery disease, type 2 diabetes, hypertension, hyperlipidemia, history of prostate cancer, anxiety, depression, erectile dysfunction presenting today for a follow up regarding his weight and recent imaging. This follow up is because over the last year he has lost about 40 lb. He reported a very limited appetite however, the last few visits his weight has been stable and if anything, increased a few lb since our last visit. No n/v/d. No abdominal pain. He just quit smoking on December 03. He has since the age of 21. He was not in the low-dose CT scan screening program. He smoked about a pack a day. He does have a cough but states it is unchanged and he states that this is has smoker's cough. No night sweats or back pain. He does have some shortness a breath with exertion and does have known coronary artery disease as well. -he did just have a stress test a couple weeks ago but states that it was limited because he was unable to really do much on the treadmill and they changed to a nuclear stress test which is coming up. He follows with [facility] Cardiology. CV: BP today is 110/64. He is on losartan 50 mg, spironolactone 12.5 mg, metoprolol 100 mg daily. cholesterol is managed with atorvastatin. Follows with [facility]. No cp, sob, palpitations. Endo: Dm is managed with lantus 20 units, jardiance 10 mg, and metformin 1000 mg. Last a1c was 5.7. No hypoglycemia. Dx around 2013. States that he checks his blood sugars once a day. Psych: He is on wellbutrin, buspar, prozac, trazodone, topamax and olanzapine. No SI/HI. Urology: has a hx of prostate ca per pt around 2006. He states he had a total prostatectomy. He states that he has not seen urology in over 4 years. Colonoscopy: Following with [facility] and states that he just had this done 2023 and it was not successful. They have to redo it. Last one was 2013 and had a tubular adenoma. PFSH Family History (Updated 12/31/24 @ 10:25 by Carina Dumas CMA) Mother Depression Other FH: mental illness Substance abuse Social History (Updated 12/31/24 @ 10:25 by Carina Dumas CMA) Housing: House Alcohol intake: current Patient Tobacco Use Status: Former Tobacco user Tobacco use type: Cigarette Cigarettes Per Day: 15 e-Cigarette/Vaping Use: Never Used Second Hand Smoke Exposure: No service: No Current occupational status: retired and disabled Current occupational exposures/hazards: No Hearing needs: No Vision needs: No Questionnaire PHQ-9 Over the last 2 weeks, how often have you been bothered by any of the following problems? 1. Little interest or pleasure in doing things: several days 2. Feeling down, depressed, or hopeless: several days 3. Trouble falling or staying asleep, or sleeping too much: more than half the days 4. Feeling tired or having little energy: several days 5. Poor appetite or overeating: several days 6. Feeling bad about yourself - or that you are a failure or have let yourself or your family down: several days 7. Trouble concentrating on things, such as reading the newspaper or watching television: several days 8. Moving or speaking so slowly that other people could have noticed. Or the opposite - being so fidgety or restless that you have been moving around a lot more than usual: several days 9. Thoughts that you would be better off or of hurting yourself in some way: not at all Total score: 9 Depression Screening Interpretation: Positive Depression Screening Done: Yes 33310 - PHQ-9 Billing: Yes Source: Developed by Drs. Escobar Nelson, Anna Malik, Franck Bergman and colleagues, with an educational francesca from [facility]. Thrive Questionnaire Date Thrive assessed: 12/28/24 I am a: Patient What is your living situation today?: I have a steady place to live Within the past 12 months, did the food you bought not last and you didn't have the money to get more?: Sometimes True Within the past 12 months, did you worry whether your food would run out before you got money to buy more?: Never true Do you have trouble paying for medicines?: No Do you have trouble getting transportation to medical appointments?: No Do you have trouble paying your heating and electricity bill?: No Do you have trouble taking care of your child, family member or friend?: No Do you have trouble with day-to-day activities such as bathing, preparing meals, shopping, managing finances, etc.?: No Are you currently unemployed and looking for a job?: I choose not to answer this question Are you interested in more education?: No Please select the resources that you would like help with: Food and None Currently or been in a relationship where the following occur: Controlled Emotionally THRIVE Score: 2 AUDIT C Alcohol Use Questionnaire (AUDIT-C) 1. How often do you have a drink containing alcohol?: Monthly or less Total Score: 1 DOROTEO-7 AMB Questionnaire DOROTEO-7 Date DOROTEO - 7 assessed: 12/31/24 Feeling nervous, anxious, or on edge: 1 = Several days Not being able to stop or control worryin = More than half the days Worrying too much about different things: 1 = Several days Trouble relaxin = Several days Being so restless that it is hard to sit still: 1 = Several days Becoming easily annoyed or irritable: 1 = Several days Feeling afraid as if something awful might happen: 0 = Not at all Total DOROTEO-7 score (0-4 normal; 5-9 mild; 10-14 moderate; 15-21 severe): 7 Source: Developed by Drs. Escobar Nelson, Anna Malik, Franck Bergman and colleagues, with an educational francesca from [facility]. DOROTEO-7 Assessment Billing DOROTEO-7 Assessment Tool: DOROTEO-7 Assessment 91036 Physical exam (Primary Care) Vital Signs: Last Vital Signs Pulse 81 12/31/24 10:25 BP 110/64 12/31/24 10:25 Pulse Ox 97 12/31/24 10:25 Oxygen Delivery Method Room Air 12/31/24 10:25 BMI result Body Mass Index 25.4 Tobacco/Smoking Status: Tobacco use Status Tobacco use date assessed 12/31/24 12/31/24 10:28 Patient Tobacco Use Status Former Tobacco user 12/31/24 10:28 Tobacco use type Cigarette 12/31/24 10:25 e-Cigarette/Vaping Use Never Used 12/31/24 10:25 PHQ-9: PHQ-9 Score PHQ-9: Total score 9 12/31/24 10:51 Depression Screening Interpretation: Positive Thrive Assessment: Date of Thrive Assessment Date Thrive assessed 12/28/24 12/31/24 10:15 Currently or been in a relationship where the following occur: Controlled Emotionally Const Orientation/consciousness: patient oriented x3 HENMT Ears: hearing grossly normal bilaterally Neck Thyroid: Thyroid normal Lymphatic: no lymphadenopathy noted Resp Auscultation: clear to auscultation bilaterally Cardio Rate: regular rate Rhythm: regular rhythm Heart sounds: S1 normal heart sound present and S2 normal heart sound present GI Inspection: Yes normal to inspection Palpation (GI): Soft to palpation and Other GI palpation findings present (nontender, no cva tenderness) Auscultation: normoactive bowel sounds Rectal Exam - Male: Yes deferred Skin General skin exam: no rashes or lesions noted Neuro General: patient oriented x3, gait normal and no focal motor deficits Results Reviewed Results Reviewed: Laboratory Tests 10/12/24 12/22/24 14:54 16:16 Sodium 138 Potassium 4.1 Chloride 108 Carbon Dioxide 20 L Anion Gap 14 BUN 17 H Creatinine 0.74 POC Creatinine 0.8 POC GFR > 60 Estimat Average Glucose 117 Hemoglobin A1c % 5.7 PSA Screen < 0.10 TSH 1.83 IMPRESSION: Small bilateral nonobstructive renal stones. Moderate stool in the colon and rectum. No bowel obstruction. A few small foci of mild subcutaneous fat stranding in the superficial subcutaneous fat of the ventral abdominal wall may be due to scarring versus less likely cellulitis or contusion. Correlate clinically. Focal deformity of the anterior aspect of the S3 and S4 vertebral bodies due to more likely chronic than acute fracture. Correlate clinically. This document has been electronically signed by: Melissa Mittal MD on 12/23/2024 11:45:37 IMPRESSION: 1. Eventration of the left hemidiaphragm with mild adjacent atelectasis in the left lower lobe and lingula. 2. 5 mm and 3 mm left lung nodules. According to Fleischner society guidelines, if patient is at high risk for neoplasm, follow-up CT chest in 12 months is optional. 3. 8 mm nonobstructive left renal stone. 4. Other findings as described. Coding Level of Care Code Est Pt Level 4 (88341) Complex EM visit Add On G2211 Diagnoses Pulmonary nodules R91.8 History of prostate cancer Z85.46 Adrenal adenoma D35.00 Insulin dependent type 2 diabetes mellitus E11.9; Z79.4 Hypertension due to endocrine disorder I15.2 Hypertension type: secondary to endocrine disorders Left renal stone N20.0 SOB (shortness of breath) on exertion R06.02 Additional Codes DOROTEO-7 Assessment Billing - DOROTEO-7 Assessment Tool: DOROTEO-7 Assessment 61941 ([id number]) PHQ-9 - 70783 - PHQ-9 Billing: Yes ([id number]) Assessment & Plan Assessment & Plan (1) Pulmonary nodules: Code(s): R91.8 - Other nonspecific abnormal finding of lung field Category: Medical Plan: Repeat chest CT ordered for 1 year. Referral to pulmonology as he does get some shortness a breath with exertion. (2) History of prostate cancer: Code(s): Z85.46 - Personal history of malignant neoplasm of prostate Category: Medical Plan: Referral to urology (3) Adrenal adenoma: Code(s): D35.00 - Benign neoplasm of unspecified adrenal gland Category: Medical Plan: Reviewed the CT findings with him and I have referred him to endocrinology to discuss whether or not he needs further hormone testing. 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 Continue Lantus and Jardiance. We will monitor closely and return in 1 month. (5) Hypertension: Code(s): I10 - Essential (primary) hypertension Category: Medical Qualifiers: Hypertension type: secondary to endocrine disorders Qualified Code(s): I15.2 - Hypertension secondary to endocrine disorders Plan: WNL. Continue current regimen (6) Left renal stone: Code(s): N20.0 - Calculus of kidney Category: Medical Plan: Referral to Uro (7) SOB (shortness of breath) on exertion: Code(s): R06.02 - Shortness of breath Category: Medical Plan: Following with cardiology. Chest CT reviewed. Referral to pulmonology. Congratulated him on smoking cessation. Discussed warning signs of shortness on breath that would require emergent medical treatment. Plan Advised patient that he does need to follow up with his PCP. Orders: Orders CT chest wo IV con 1 Year R91.8 - Other nonspecific abnormal finding of lung field Comprehensive Met. 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 service representative (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 Hemoglobin A1c Today E11.9 - Type 2 diabetes mellitus without complications, I15.2 - Hypertension secondary to endocrine disorders, R73.01 - Impaired fasting glucose, R91.8 - Other nonspecific abnormal finding of lung field, Z79.4 - jail (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 TSH reflex Free T4 Today E11.9 - Type 2 diabetes mellitus without complications, I15.2 - Hypertension secondary to endocrine disorders, R91.8 - Other nonspecific abnormal finding of lung field, Z79.4 - jail (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 Microalbumin, Random (w Creat) Today E11.9 - Type 2 diabetes mellitus without complications, I15.2 - Hypertension secondary to endocrine disorders, R91.8 - Other nonspecific abnormal finding of lung field, Z79.4 - 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 service representative (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 Complete Blood Count Auto Diff Today E11.9 - Type 2 diabetes mellitus without complications, I15.2 - Hypertension secondary to endocrine disorders, R91.8 - Other nonspecific abnormal finding of lung field, Z79.4 - 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 service representative (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 Referrals Pulmonology Referral R05.3 - Chronic cough, R91.8 - Other nonspecific abnormal finding of lung field Urology Referral N20.0 - Calculus of kidney, Z85.46 - Personal history of malignant neoplasm of prostate Endocrinology Referral D35.00 - Benign neoplasm of unspecified adrenal gland, E11.9 - Type 2 diabetes mellitus without complications, Z79.4 - 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 follow up blood work in 1 month or sooner if needed referral to urology for the history of prostate cancer and for the left kidney stone and cyst
[2024-12-31 10:25] VITALS: BP 110/64; PULSE 81; O2SAT 97; BMI 25.4
--- OUTSIDE RECORDS SUMMARY | 2024-12-31 13:21 | XMS_ITS | Encounter Summary ---
Author Organization [facility] Address [address] [place] [phone] Care Team Providers Care Plant Maintenance Worker Name Role Phone Delroy Haile MD Primary Care Provider [phone] Encounter Details Date Type Department Care Team (Late st Contact Info) Description 12/04/2024 Telephone Gastroenterology - [address] [place] [address] Kisha Palomo MA Social History Tobacco Use [...] proc from 12.15.24 Scheduled colon 01.14.25 at [facility] with 01 arriving at 10 am for [...] Care Team (Late st Contact Info) Description 01/14/2025 2:00 PM EST Appointment [facility] Endoscopy [address] [place] [phone] Aakash Prater MD [address] [address] 01/25/2025 11:00 AM EST Ancillary Procedure [facility] - [address] [facility] [address] [place] [address] documented as of this encounter Visit Diagnoses Not on filedocumented in this encounter Care Teams Plant Maintenance Worker Relationship Specialty Start Date End Date Delroy Haile MD [address] [place] [address] Dr Perea [facility] [place] PCP - General 03/28/23 documented as of this encounter
--- OUTSIDE RECORDS SUMMARY | 2024-12-31 13:21 | XMS_ITS | Clinical Summary ---
Author Organization [facility] Address [address] [place] [address] Phone Care Team Providers Care Lightning Rod Erector Name Role Phone Delroy Haile MD Primary Care Provider [phone] Allergies No known active allergies Medications Medication [...] Once in imaging 12/18/2024 12/18/2024 End ed TC-99M tetrofosmin P radio-isotope injection 9.6 millicurie 9.6 millicurie IV Once in imaging 12/29/2024 12/29/2024 Ended Active Problems Problem Noted Date Diagnosed Date Coronary artery disease invo lving [place] coronary artery of [place] heart without angina pectoris 06/14/2021 Overview (10/21/2024): [...] EF 25% at the time of his MO Improved to 45-50% November 2020 Last Assessment & Plan: The patient's LVEF has recovered with catheter directed medical therapy and 25% of the time of his MO to 40-50% in November 2020. He has [...] Encounters Date Type Department Care Team Description 12/29/2024 8:30 AM EST Ancillary Procedure [facility] Cardiology [facility] - [address] [place] [address] Arrived 12/07/2024 10:40 AM EST Office Visit [facility] Cardiology [facility] - [address] [place] [address] Zuri Don NP Coronary artery disease involving [place] coronary artery of [place] heart without angina pectoris (Primary Dx); Ischemic cardiomyopathy; HFrEF (heart failure with reduced ejection fraction) ([facility]) 12/04/2024 Telephone Gastroenterology - [address] [place] [address] Kisha Palomo [place] 11/06/2024 Telephone Gastroenterology - [address] [facility] [address] [place] [address] Laureen King [place] 11/04/2024 Telephone Gastroenterology - [address] [facility] [address] [place] [address] Aakash Prater MD 10/27/2024 10:31 AM EST Anesthesia Event [facility] Endoscopy [address] [place] [address] Jared Menjivar MD Chang, Ling, CRNA 10/27/2024 9:35 AM EST - 10/27/2024 11:59 PM EST Hospital Encounter [facility] [address] [place] [phone] Aakash Prater MD Spencer, Mark A, MD Hx of colonic polyps Discharge Disposition: Home or Self Care from Last 3 Months Surgical History Surgery Date Site/Laterality Comments PROSTATECTOMY Medical History Medical History Date Comments Diabetes mellitus (CMS/HCC) Hypertension Hyperlipidemia CAD (coronary artery disease) STEMI (ST elevation myocardial infarction) ([facility]) ONE HEART STENT Family History Medical History [...] Sign Reading Time Taken Comments Blood Pressure 120/76 12/29/2024 8:46 AM EST Pulse 71 12/07/2024 10:48 AM EST Temperature 36 ??C (96.8 ??F) 10/27/2024 10:18 AM EST Respiratory Rate 16 10/27/2024 11:03 AM EST Oxygen Saturation 97% 12/07/2024 10:48 AM EST Inhaled Oxygen Concentration - - Weight 70.8 kg (156 lb) 12/29/2024 8:29 AM EST Height 172.7 cm (5' 8 ) 12/29/2024 8:29 AM EST Body Mass Index 23.72 12/29/2024 8:29 AM EST Plan of Treatment Upcoming Encounters Date Type Department Care Team (Late st Contact Info) Description 01/14/2025 2:[address] [facility] Endoscopy [address] [place] [address] Aakash Prater MD [address] [address] 01/25/2025 11:00 AM EST Ancillary Procedure [facility] - [address] [place] [address] Health Maintenance Due Date Last Done Comments [...] Procedure Name Priority Date/Time Associated Diagnosis Comments NM LEXISCAN STRESS TEST (REST ONLY) W/ MYOCARDIAL PERFUSION Routine 12/29/2024 10:57 AM EST Coronary artery disease involving [place] coronary artery of [place] heart without angina pectoris Ischemic cardiomyopathy HFrEF (heart failure with reduced ejection fraction) ([facility]) ECG 12-LEAD Routine 12/07/2024 11:26 AM EST Coronary artery disease involving [place] coronary artery of [place] heart without angina pectoris COLONOSCOPY Routine 10/27/2024 10:42 AM EST Hx of colonic polyps BASIC METABOLIC PANEL Routine 10/26/2024 2:04 PM EST from Last 3 Months Results * NM LEXISCAN STRESS TEST (REST ONLY) W/ MYOCARDIAL PERFUSION (12/29/2024 10:57 AM EST) Exercise/inject ion duration (min) 0 CV PACS STRESS Exercise/inject ion duration (sec) 48 CV PACS STRESS Peak SBP 140 mmHg CV PACS STRESS Peak DBP 83 mmHg CV PACS STRESS Peak HR 120 bpm CV PACS STRESS Baseline HR 104 bpm CV PACS STRESS Baseline SBP 140 mmHg CV PACS STRESS Baseline DBP 83 mmHg CV PACS STRESS Estimated workload 1.5 METS CV PACS STRESS Percent HR 76 % CV PACS STRESS Rate Pressure Product 16,800.0 mmHg*bpm CV PACS STRESS Target HR [address] PACS STRESS [address] Depression (mm) 0 mm CV PACS STRESS BSA 1.84 m2 CV PACS STRESS Anatomical Region Laterality Modality Nuclear Medicine 12/18/2024 10:4 1 AM EST 12/18/2024 10:57 AM EST Narrative 12/30/2024 9:54 AM EST ?Unable to obtain nuclear images due to anatomical difficulties. Stress Findings The exercise part of the test was not completed due to inadequate resting images due to patients anatomy. The resting images were reviewed by dr Dean who recommend to continue with current plan for echocardiogram scheduled in january. Patient was euvolemic on exam and in no acute distress. Patient was educated to report any s/sx concernign for ischemia or decompensation. Total stress time was 0 min and 48 sec. Perfusion Comments Unable to interpret due to anatomically location of the heart and elevated left hemidiaphram with loop of bowel with high tracer uptake. Zuri Don NP CV STRESS PROC EDURES * ECG 12 lead (12/07/2024 11:26 AM EST) Ventricular Rate ECG 71 BPM GEMUSE Atrial Rate 71 BPM GEMUSE P-R Interval 180 ms GEMUSE QRS Duration 128 ms GEMUSE Q-T Interval 434 ms GEMUSE QTc 471 ms GEMUSE P Wave [place] 76 degrees GEMUSE R [place] 82 degrees GEMUSE T [place] 66 degrees GEMUSE ECG Interpretation Normal sinus rhythm Right bundle branch block Abnormal ECG Confirmed by MD Jermaine, Nasim ([id number]) on 12/08/2024 10:31:31 AM GEMUSE 12/07/2024 10:5 6 AM EST 12/08/2024 10:31 AM EST Zuri Don NP ECG ORDERABLES GEMUSE * COLONOSCOPY Anesthesia - MAC; [facility] ENDOSCOPY (10/27/2024 10:42 AM EST) [...] present medications. Narrative 11/03/2024 9:[address] [facility] GI Patient Name: Armando Martinez Procedure Date: [...] In: Scope Out: ? Endoscopy Department at [facility] - [address] [place] [address], ? [place] [address] Procedure Note Aakash Prater MD - 11/03/2024 [facility] GI Patient Name: Armando Martinez Procedure Date: [...] Scope In: Scope Out: Endoscopy Department at [facility] - [address] [place] [phone] IMPRESSION: - Preparation of the colon was [...] AM EST Performed at: ??01 - [facility] [address] ??[id number] Special Education Classroom Aide: Vikki Quiros MD, Phone: ??[phone] Nasim Dean MD LAB BLOOD ORDERAB LES [facility] 1 from Last 3 Months Care Teams Lightning Rod Erector Relationship Specialty Start Date End Date Delroy Haile MD [address] [place] [address] Dr Ebonie [place] PCP - General 03/28/23
--- OUTSIDE RECORDS SUMMARY | 2024-12-31 13:21 | XMS_ITS | Clinical Summary ---
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 01/08 Amblyopia of left eye 08/27/2023 Nuclear sclerosis of both eyes 08/27/2023 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, without long-term current use of insulin 08/27/2023 Social History Tobacco Use Types Packs/Day Years Used Date Smoking Tobacco: Every Day Cigarettes Tobacco Cessation:Ready to Q uit: Not Asked; Counseling Given: Not Answered Comments:3/4 pack a day since the age of 20 Sex and Gender Information Value Date Recorded Sex Assigned at Male 09/28/2023 12:41 PM EDT Legal Sex Male 8:40 PM EDT Gender Identity Male 09/28/2023 12:41 PM EDT Sexual Orientation Farah 09/28/2023 12 :41 PM EDT Last Filed Vital Signs Vital Sign Reading Time Taken Comments Blood Pressure 124/88 01/08/2024 10:31 AM EST Pulse - - Temperature 36.2 ??C (97.1 ??F) 01/08/2024 10:[address] Respiratory Rate - - Oxygen Saturation - - Inhaled Oxygen Concentration - - Weight - - Height - - Body Mass Index - - Plan of Treatment Upcoming Encounters Date Type Department Care Team (Late st Contact Info) Description 01/11/2025 10:30 AM EST Office Visit [facility] [address] [place] [address] Chloe Celis, OD [address] [place] [address] Health Maintenance Due Date Last Done Comments CT Colonography 1961 Colonoscopy 1961 Colorectal Cancer Screening 1961 Depression Screening 1961 Diabetes: Hemoglobin A1C 1961 FIT DNA/Cologuard 1961 FIT 1961 FOBT 1961 HIV Screening 1961 Lipid Panel 1961 SDOH Screening 1961 Sigmoidoscopy 1961 Diabetes: Foot Exam 1971 Alcohol/Substance Use Screening 1973 Hepatitis C Screening 1979 Diabetes: Urine Protein Screening 1980 Zoster Vaccines (1 of 2) 2011 Pneumococcal Vaccine: Pediatrics (0 to 5 Years) and At-Risk Patients (6 to 49) Years) (2 of 2 - PCV) 01/06/2018 01/06/2017 RSV Patients and Patients Aged 60 years or older (1 - Risk 60-74 years 1-dose series) 2021 COVID-19 Vaccine (3 - 2023- season) 2024 04/15/2021, 03/25/2021 Influenza Vaccine (#1) 2024 07/07/2017 Eye Exam 01/08/2025 01/08/2024, 06/2024, 01/08/2024, Additional history exists Tobacco Screening 01/08/2025 01/08/2024 DTaP/Tdap/Td Vaccines (2 - Td or Tdap) 11/14/2027 11/14/2017 HIB Vaccines Aged Out No longer eligi [...] patient's age to complete this topic Meningococcal Vaccine Aged Out No glenn dania eligible based on patient's age to complete this topic RSV under 20 months Aged Out No longe r eligible based on patient's age to complete this topic Rotavirus Vaccines Aged Out No longer eligible based on patient's age to complete this topic Insurance [facility] Member Subscriber Plan / Payer (Ef fective 2023-Present) Name:Armando Martinez Relation to Subscriber:Self Name:Armando Martinez Payer ID:Not on file Group ID:Not on file Type:Medicaid Address: [address] [facility] * Guarantor: Armando Martinez Account Type Relation to Patient Date of Phone Billing Address Personal/[place] [address] Care Teams In Classroom Tutor Relationship Specialty Start Date End Date Delroy Haile [address] [place] [address] [place] [address] Primary Care Provider 09/30/23
--- OUTSIDE RECORDS SUMMARY | 2024-12-31 13:21 | XMS_ITS | Encounter Summary ---
Author Organization [facility] Address [address] [place] [address] Care Team Providers Care Drum Sander Setter Name Role Phone Delroy Haile MD Primary Care Provider [phone] Reason for Visit * Cardiac Stress Testing (Routine) - Authorized Specialty Diagnoses / Procedures Referred By Contac t Referred To Contact Cardiology Diagnoses Coronary artery disease involving squaxin coronary artery of squaxin heart without angina pectoris Ischemic cardiomyopathy HFrEF (heart failure with reduced ejection fraction) (CMS/HCC) Procedures Nuclear stress test with myocardial perfusion [place] MYOCARDIAL PERFUSION IMAGING TOMOGRAPHIC MULTI STUDIES AT REST OR STRESS [place] MYOCARDIAL PERFUSION IMAGING TOMOGRAPHIC SINGLE STUDY AT REST OR STRESS [place] CARDIOVASCULAR STRESS TEST GLOBAL [place] CV TMST/BIKE MAX/SUBMAX CONTINUOUS ECG MON/PHARM STRESS SUPVSR ONLY [place] CV STRESS TEST/BIKE CONT ECG MON/PHARM STRESS INTERP & REPORT ONLY [place] TEST STRESS CARDIOVASCULAR TRACING ONLY Zuri Don NP [address] [place] [address] [facility] Referral ID Status Reason Start Date Expiration Date V isits Requested Visits Authorized [id number] Authorized 12/07/2024 12/07/2025 1 1 Encounter Details Date Type Department Care Team (Late st Contact Info) Description 12/29/2024 8:30 AM EST Ancillary Procedure [facility] - [address] [place] [address] Arrived Social History Tobacco Use Types Packs/Day Years Used Date Smoking Tobacco: Former Cigarettes Smokeless Tobacco: Never Alcohol Use Standard [...] Pressure 120/76 12/29/2024 8:46 AM EST Pulse - - Temperature - - Respiratory Rate - - Oxygen Saturation - - Inhaled Oxygen Concentration - - Weight 70.8 kg (156 lb) 12/29/2024 8:29 AM EST Height 172.7 cm (5' 8 ) 12/29/2024 8:29 AM EST Body Mass Index 23.72 12/29/2024 8:29 AM EST documented in this encounter Plan of Treatment Upcoming Encounters Date Type Department Care Team (Late st Contact Info) Description 01/14/2025 2:00 PM EST Appointment [facility] [address] [place] [phone] Aakash Prater MD [address] [facility] [address] [place] [address] 01/25/2025 11:00 AM EST Ancillary Procedure [facility] - [facility] [address] [facility] [address] [place] [phone] documented as of this encounter Procedures Procedure Name Priority Date/Time Associated Diagnosis Comments NM LEXISCAN STRESS TEST (REST ONLY) W/ MYOCARDIAL PERFUSION Routine 12/29/2024 10:57 AM EST Coronary artery disease involving squaxin coronary artery of squaxin heart without angina pectoris Ischemic cardiomyopathy HFrEF (heart failure with reduced ejection fraction) ([facility]) documented in this encounter Visit Diagnoses Not on filedocumented in this encounter Administered Medications Inactive Administered Medications - up to 3 most recent administrations Medication Order MAR Action Action Date Dose Rate Site TC-99M tetrofosmin P radio-isotope injection 9.6 millicurie 9.6 millicurie, intravenous, Once in imaging, Starting on Sat12/29/24 at 0833, For 1 dose Given 12/29/2024 8:40 AM EST 9.6 millicuries Left Antecubital documented in this encounter Orders Medications Ordered That Brian ht Not Have Been Administered Count Last Ordered Date First Ordered Date TC-99M tetrofosmin P radio-i sotope injection 9.6 millicurie 1 12/29/2024 documented in this encounter Care Teams Drum Sander Setter Relationship Specialty Start Date End Date Delroy Haile MD [address] [place] [address] Dr Ebonie [place] PCP - General 03/28/23 documented as of this encounter
--- OUTSIDE RECORDS SUMMARY | 2024-12-31 13:21 | XMS_ITS | Encounter Summary ---
Author Organization [facility] Address [address] [place] [address] Care Team Providers Care Federal Mediator Name Role Phone Delroy Haile MD Primary Care Provider [phone]- [phone] Reason for Referral * Cardiac Stress Testing (Routine) - Authorized Specialty Diagnoses / Procedures Referred By Mark booth Referred To Contact Cardiology Diagnoses Coronary artery disease involving dry creek coronary artery of [place] heart without angina pectoris Ischemic cardiomyopathy HFrEF (heart failure with reduced ejection fraction) (CMS/HCC) Procedures Nuclear stress test with myocardial perfusion [place] MYOCARDIAL PERFUSION IMAGING TOMOGRAPHIC MULTI STUDIES AT REST OR STRESS [place] MYOCARDIAL PERFUSION IMAGING TOMOGRAPHIC SINGLE STUDY AT REST OR STRESS [place] CARDIOVASCULAR STRESS TEST GLOBAL [place] CV TMST/BIKE MAX/SUBMAX CONTINUOUS ECG MON/PHARM STRESS SUPVSR ONLY [place] CV STRESS TEST/BIKE CONT ECG MON/PHARM STRESS INTERP & REPORT ONLY [place] TEST STRESS CARDIOVASCULAR TRACING ONLY Zuri Don NP [address] [place] [address] [facility] Referral ID Status Reason Start Date Expiration Date V isits Requested Visits Authorized [id number] Authorized 12/07/2024 12/07/2025 1 1 * Imaging (Routine) - Pending Review Specialty Diagnoses / Procedures Referred By Mark booth Referred To Contact Cardiology Diagnoses Coronary artery disease involving dry creek coronary artery of [place] heart without angina pectoris Ischemic cardiomyopathy HFrEF (heart failure with reduced ejection fraction) (CMS/HCC) Procedures Transthoracic echocardiogram (TTE) complete with PRN contrast, bubble, strain, and 3D order panel GA TTE W 2D IMAGE COMPLETE W DOPPLER ECHO & COLOR FLOW DOPPLER ECHO GA MAGUE 2D COMPLETE W/CONTRAST OR W & WO CONTRAST WITH DOPPLER Zuri Don NP [address] [place] [address] [facility] Referral ID Status Reason Start Date Expiration Date V isits Requested Visits Authorized [id number] Pending Review 12/07/2024 12/07/2025 1 1 Reason for Visit * Reason Comments Follow-up Encounter Details Date Type Department Care Team (Late st Contact Info) Description 12/07/2024 10:40 AM EST Office Visit [facility] - [address] [place] [address] Zuri Don NP [address] [place] [address] Coronary artery disease involving dry creek coronary artery of [place] heart without angina pectoris (Primary Dx); Ischemic cardiomyopathy; HFrEF (heart failure with reduced ejection fraction) (CMS/[facility]) Social History Tobacco Use Types Packs/Day Years [...] AM ESTAssociated Problem(s): Coronary artery disease involving dry creek coronary artery of [place] heart with out angina pectoris Patient denies [...] from the original note were not included. [facility] PRIMARY MANAGER DATA WAREHOUSE: Nasim Dean MD PCP: Delroy Haile MD HPI: Armando Martinez is a 64 y.o. old male with past medical history of coronary artery disease, hypertension, ischemic cardiomyopathy and hyperlipidemia. Member 2015 patient underwent urgent cardiac catheterization at [facility] during admission for STEMI. Revealed a normal [...] Problem List Diagnosis Coronary artery disease involving dry creek coronary artery of [place] heart without angina pectoris Essential hypertension Hyperlipidemia [...] Q-T Interval 434 QTc 471 P Wave [place] 76 R [place] 82 T [place] 66 ECG Interpretation Normal sinus rhythm Right [...] Assessment & Plan Coronary artery disease involving dry [place] coronary artery of [place] heart without angina pectoris Patient denies any [...] following today: 1. Coronary artery disease involving dry creek coronary artery of [place] heart without angina pectoris 2. Ischemic cardiomyopathy 3. HFrEF (heart failure with reduced ejection fraction) (CMS/HCC) [facility] documented in this encounter Plan of Treatment Upcoming Encounters Date Type Department Care Team (Late st Contact Info) Description 01/14/2025 2:00 PM EST Appointment [facility] [address] [place] [phone] Aakash Prater MD [address] [facility] [address] [place] [address] 01/25/2025 11:00 AM EST Ancillary Procedure [facility] [address] [place] [phone] Scheduled Orders Name Type Priority Associated Diagnoses Order Schedule Transthoracic echocardiogram (TTE) complete with PRN contrast, bubble, strain, and 3D order panel Echocardiography Routine Coronary artery disease involving dry creek coronary artery of [place] heart without angina pectoris Ischemic cardiomyopathy HFrEF (heart failure with reduced ejection fraction) ([facility]) 1 Occurrences starting 12/07/2024 until 12/07/2025 Lipid panel Lab Routine Coronary artery disease involving dry creek coronary artery of [place] heart without angina pectoris Ischemic cardiomyopathy HFrEF (heart failure with reduced ejection fraction) ([facility]/HCC) Expected: 12/07/2024, Expires: 12/07/2025 documented as of this encounter Procedures Procedure Name Priority Date/Time Associated Diagnosis Comments ECG 12-LEAD Routine 12/07/2024 11:26 AM EST Coronary artery disease involving dry creek coronary artery of [place] heart without angina pectoris documented in this encounter Results * NM LEXISCAN STRESS TEST (REST [...] GEMUSE QTc 471 ms GEMUSE P Wave [place] 76 degrees GEMUSE R [place] 82 degrees GEMUSE T [place] 66 degrees GEMUSE ECG Interpretation Normal sinus rhythm Right bundle branch block Abnormal ECG Confirmed by MD Jermaine, Nasim ([id number]) on 12/08/2024 10:31:31 AM GEMUSE 12/07/2024 10:5 6 AM EST 12/08/2024 10:31 AM EST Zuri Don NP ECG ORDERABLES GEMUSE documented in this encounter Visit Diagnoses Diagnosis Coronary artery disease involving dry [place] coronary artery of [place] heart without angina pectoris- Primary Ischemic cardiomyopathy Other specified forms of chronic ischemic heart disease HFrEF (heart failure with reduced ejection fraction) (CMS/[facility]) documented in this encounter Historical Medications * This list may reflect changes made after this encounter. Medication Sig Dispensed Refills Start Date End Date multivitamin tablet Take 1 tablet by mouth 1 (one) time each day. lactobacillus acidoph-l.bulgar 100 million cell granules in packet Take 1 packet by mouth 1 (one) time each day. added in this encounter Care Teams Federal Mediator Relationship Specialty Start Date End Date Delroy Haile MD [address] [place] [address] Dr Ebonie [place] PCP - General 03/28/23 documented as of this encounter
== END 2024-12-31 11:17 | disposition home or self-care (01) ==
PROVIDERS: PCP Family Medicine; Visit Provider Physician Assistant
DX: R91.8 Other nonspecific abnormal finding of lung field (principal); E11.9 Type 2 diabetes mellitus without complications; Z79.4 Long term (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; D35.00 Benign neoplasm of unspecified adrenal gland; Z85.46 Personal history of malignant neoplasm of prostate; I15.2 Hypertension secondary to endocrine disorders; N20.0 Calculus of kidney; R06.02 Shortness of breath

== ENCOUNTER → 2024-12-31 10:09 | Outpatient (BNVA) | payer MEDICARE, SELFPAY | PROVIDERS: PCP Family Medicine; Visit Provider Physician Assistant | DX: R91.8 Other nonspecific abnormal finding of lung field (principal); D35.00 Benign neoplasm of unspecified adrenal gland; I15.2 Hypertension secondary to endocrine disorders; E11.9 Type 2 diabetes mellitus without complications; Z79.4 Long term (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; N20.0 Calculus of kidney; R06.02 Shortness of breath | CPT/HCPCS: 96127; 99212 ==

== ENCOUNTER 2025-02-09 13:17 | Outpatient (AMB) | payer MEDICARE, SELFPAY ==
[2025-02-09 13:32] VITALS: BP 114/82; PULSE 101; O2SAT 96; BMI 27.3
--- NOTE | 2025-02-09 13:32 | A.OFFVIS_ITS ---
Vital Signs 02/09/25 13:32 Height 5 ft 6.5 in Weight 171 lb 15.369 oz BMI 27.3 BP 114/82 Blood Pressure Location Rt brachial Position Sitting Pulse 101 H Pulse Source Pulse Oximeter Pulse Oximetry (%) 96 Oxygen Delivery Method Room Air Intake Visit Reasons: Benign neoplasm of unspecified adrenal gland, T2DM Intake Note: New patient present today for Type 2 Diabetes Mellitus and benign neoplasm of unspecified adrenal gland. Last Diabetic eye exam was on: DUE Last Podiatry exam was on: Patient does not see a Fitter Tacker Most recent HbA1c: 6.7%, 02/09/2025 Random Glucose- 299 mg/dL, Today [employer] Reading Teacher Required: No Accompanied by: Self / Same As Patient Allergies No Known Allergies Allergy (Verified 02/09/25 13:41) Medication List - Last Reconciled 02/09/25 by Supriya Benson MD atorvastatin 40 mg PO DAILY 90 days blood sugar diagnostic (FreeStyle Lite Strips) Use daily As directed to check blood glucose blood-glucose meter (FreeStyle Lite Meter kit) Use daily As directed to check blood sugars blood-glucose meter,continuous (FreeStyle Sheng 3 [place]) Use daily As directed to monitor blood glucose blood-glucose sensor (FreeStyle Sheng 3 Sensor device) Apply every 14 days As directed to monitor blood glucose bupropion HCl SR 200 mg PO BID buspirone 15 mg PO BID clotrimazole 1% 1 appl topical BID 2 weeks docusate sodium (Colace) 100 mg PO DAILY empagliflozin (Jardiance) 10 mg PO DAILY fluoxetine 40 mg PO DAILY glucose (Dex4 Glucose) 16 grams (4 x 4 gram) PO Q15M PRN insulin glargine (Lantus Solostar U-100 Insulin) 20 units (0.2 mL) subcut QPM 30 days lancets (FreeStyle Lancets) use daily as directed to check blood glucose losartan 25 mg PO DAILY metoprolol succinate ER 100 mg PO DAILY multivitamin 1 tab PO DAILY olanzapine 2.5 mg PO BEDTIME PRN pen needle, diabetic (BD Mildred 2nd Gen Pen Needle) Daily As directed, 90 days [probiotic .] sildenafil 100 mg PO DAILY 30 days simethicone 80 mg PO BID-QID PRN 30 days spironolactone 12.5 mg PO DAILY topiramate 150 mg PO BEDTIME trazodone 200 mg PO BEDTIME PRN HPI Comments Details: 64-year-old male here today for initial evaluation of type 2 diabetes mellitus and adrenal gland hyperplasia bilaterally. Bilateral adrenal gland hyperplasia Dec 232024 : cT abdomen done for weigth loss eval : B/L adrenal hyperplasia up to 18 mm thickness, I reviewed the images myself , showed B/L macronoduler hyperplasia Symptoms: -Pt denies , ,severe acne ,. lost 20 lbs over summer 2023, now gained back 10 lbs, apparently had loss of apetitei, evaluated by PCP , no etiology determined -denies any hx of proximal muscle weakness, easy bruisability ,no abdominal striae,no headaches -Diagnosed with HTN in 40s . no history of stroke, but has HFref, ischemic TALENT REP, has CAD high blood pressure. on metoprolol 100 mg daily, losartan 25 mg daily , spironolactone 12.5 mg daily -Denies ,no abdominal pain ,skin infection or hyperpigmentation. -Does have DM, uncontrolled , see below - no recent vertebra or fragility fracture -No truncal obesity,facial plethora or recent mood change. Has low mood intermittently. - no episodic palpitaions, pallor, abdominal pain, diaphoresis . -no loss of libido, no erectile dysfunction, identifies as homosexual No history of TB Not on anticoagulants Quit smoker , smoked for 40 years or so , 3/4 of a pack a day Denies night sweats Type 2 DM History of diabetes Diagnosed with Type 2 DM in late 30s or early 40s Prior therapy: Current regimen: Insulin lantus 20 units at night JArdiance 10 mg daily Denies any symptoms of hyperglycemia including polyphagia, polyuria, polydipsia. Denies any hypoglycemic symptoms. SMBG's Checks fasting, doesnt Fasting : 160s to 210 severe hypoglycemic event once 8 to 10 years ago Doesnt think he is ever had DKA Last Podiatry exam was on: Patient does not see a Fitter Tacker Most recent HbA1c POC: 6.7%, 02/09/2025 Random Glucose- 299 mg/dL, Today Complications Eye exam: Last Diabetic eye exam was on: DUE, has one coming up, no retinopathy Neuropathy: denies symptoms Kidney disease: no history Macrovascular complications:has history of CAD, HFREf , follows with [facility] cardiology Statin:atorvastatin 40 mg daily ALISHA/ARB: losartan 25 mg daily Exercise: none Diet control: wants to see k [employer] school principal Physical exam General: sitting comfortably in no acute distress HEENT: normocephalic/atraumatic, EOM intact, moist oral mucosa Neck: supple, symmetrical, no thyromegaly , no dorsocervical or supraclavicular fat pads Cardiac: normal heart sounds Pulm: normal breath sounds B/L, no added breath sounds Abd: not distended, no tenderness Extremities: no edema, no signs of myxedema Neuro: AAO x3, Speech: normal, no facial droop, moving all 4 extremities Skin: no rash Foot exam: intact sensation to monofilament, intact pulses, intact vibration Laboratory Tests 09/11/24 10/12/24 10/12/24 08:41 14:54 15:05 POC Creatinine POC GFR Estimated GFR > 60 Glucose (Clinic) Fasting Glucose 131 H Hemoglobin A1c % 5.7 Hgb A1c (Clinic) C-Peptide 3.25 AST 31 ALT 31 Cholesterol 118 LDL Cholesterol, Calc 64 HDL Cholesterol 38 L Urine Creatinine 71.01 Urine Microalbumin 9.0 Microalb/Creat Ratio 12.6 12/22/24 02/09/25 02/09/25 16:16 13:47 13:57 POC Creatinine 0.8 POC GFR > 60 Estimated GFR Glucose (Clinic) 299 H Fasting Glucose Hemoglobin A1c % Hgb A1c (Clinic) 6.7 H C-Peptide AST ALT Cholesterol LDL Cholesterol, Calc HDL Cholesterol Urine Creatinine Urine Microalbumin Microalb/Creat Ratio ? ON LICENSE OF [facility] Medical History (Updated 02/09/25 @ 17:25 by Supriya Benson MD) Adenoma of both adrenal glands Surgical History Hx of prostatectomy Hx of colonoscopy Family History Mother Depression Father No problems noted. Maternal Grandfather Diabetes mellitus Maternal Grandmother Diabetes mellitus Other FH: mental illness Substance abuse Social History Housing: House Alcohol intake: current Patient Tobacco Use Status: Former Tobacco user Tobacco use type: Cigarette Cigarettes Per Day: 15 e-Cigarette/Vaping Use: Never Used Second Hand Smoke Exposure: No service: No Current occupational status: retired and disabled Current occupational exposures/hazards: No Hearing needs: No Vision needs: No Physical Exam Vital Signs: Last Vital Signs Pulse 101 H 02/09/25 13:32 BP 114/82 02/09/25 13:32 Pulse Ox 96 02/09/25 13:32 Oxygen Delivery Method Room Air 02/09/25 13:32 BMI result Body Mass Index 27.3 Results AMB Hemoglobin A1c AMB Hemoglobin A1c 6.7 % Last Edit by KAMRON Medrano on 02/09/25 13:58 Results Reviewed Results Reviewed: Laboratory Last Values Glucose (Clinic) 299 mg/dL (60-115) H 02/09/25 13:47 Hgb A1c (Clinic) 6.7 % (4.0-6.0) H 02/09/25 13:57 Assessment & Plan Assessment & Plan (1) Adenoma of both adrenal glands: Code(s): D35.01 - Benign neoplasm of right adrenal gland; D35.02 - Benign neoplasm of left adrenal gland Category: Medical Plan: 64-year-old male coming in today for initial evaluation of bilateral adrenal gland hyperplasia. This was found on CT abdomen done for evaluation of unexplained weight loss which showed bilateral adrenal gland hyperplasia, I reviewed the images myself which shows bilateral macronodular hyperplasia and report comments it on as up to 18 mm in thickness. No Hounsfield units mentioned. Our first concern is to be sure that this is not an adrenal cortical carcinoma. ?Fortunately adrenal cortical carcinomas are exceedingly rare. ?However they do carry with them a very poor prognosis.?Given his clinical history with no deterioration in overall health; I have low suspicion for adrenocortical carcinoma to start with. ?Our next step will be to repeat the imaging of his adrenal gland with?adrenal washout protocol to comment on Hounsfield units and washout. He did have some unexplained weight loss over last year but now he has gained 10 lb back. He does not have any B symptoms. ?? Another concern of adrenal masses is that they might be metastatic disease from another primary malignancy. ?He only quit? smokin recently and did smoke for 40 years. a renal cancer which can metastasize to the adrenal glands probably would have been identified on his initial imaging study. ?Usually metastatic disease to the adrenal glands goes to both adrenal glands. ?Given that both adrenals have hyperplasia, this can not be completely ruled out, the CT adrenal with a washout protocol we will help determine whether these are benign masses or not. Given bilateral thickening, we also have to think of possibly macronodular hyperplasia in the setting of Michel's disease, infiltrative processes, we will test for angiotensin-converting enzyme to screen for sarcoidosis, he has grown up in the [place] but we will also check TB spot test. Though tuberculosis lesions are usually more calcified. He is not on any blood thinners to be concerned about hemorrhage. We will also check for 17 hydroxyprogesterone levels to rule out CAH. ? Most adrenal masses are noncancerous or benign adrenal adenomas. ?However they can occasionally be functional and the hormones that are produced can cause clinical problems.??He has not been screened for any hormonal excess; although low clinical suspicion for pheochromocytoma; given the adrenal adenoma in question is greater than 1 cm and we currently do not have Hounsfield units reading on it; I will err on the side of caution and screen with plasma free metanephrines with his blood work today. ? He also has a history of hypertension, so we will also check for aldosterone and plasma renin activity. ? We will check a 1 mg overnight dexamethasone suppression test .? ? Plan: -ordered CT with the adrenal washout -ordered angiotensin-converting enzyme, TB spot test, plasma aldosterone, renin activity, BMP, plasma metanephrine normetanephrine levels, baseline cortisol, DHEA-S, acth level -ordered dexamethasone suppression test -follow up in 8 weeks to discuss results (2) Insulin dependent type 2 diabetes mellitus: Code(s): E11.9 - Type 2 diabetes mellitus without complications; Z79.4 - penitentiary (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 Category: Medical Plan: He is also here today for initial evaluation of type 2 diabetes mellitus. With long-term insulin use without complications. Most recent A1c done today point of care was 6.7% which is up from 5.7% back in October 2024. At that time he saw his primary care provider and metformin was discontinued because of low A1c. However even with a an A1c of 6.7% his blood sugar was in the 200s today. I am not sure of the A1c is accurate. He does not have a CBC in the chart, could possibly have anemia falsely lowering the A1c, we will order a CBC. I will also order fructosamine level which might help with clarifying his glycemic status. He says he has been checking his blood sugars fasting which have been anywhere from 160s to 200s. Did not bring his glucometer today. Emphasized importance of bringing meter to appointments with me. We will also prescribe a freestyle Sheng 3+ given he is on insulin. I will restart his metformin, this will help with glycemic control. I do not have a lot of data to modify his insulin, we will see once he bring his in things glucometer. Plan: -restart metformin 1000 mg daily -continue Jardiance 10 mg daily. -continue insulin Lantus 20 units daily at night (we will consider lowering the insulin in the future visits once glycemic control is improved) -bring glucometer to next visit -referral placed for oncology navigator for CGM placement -reiterated importance of following up with Ophthalmology for annual eye visits -ordered fasting lipid panel, urine microalbumin, BMP -follow up in 8 weeks (3) Hyperlipidemia: Code(s): E78.5 - Hyperlipidemia, unspecified Category: Medical Qualifiers: Hyperlipidemia type: mixed hyperlipidemia Qualified Code(s): E78.2 - Mixed hyperlipidemia Plan: LDL from September 2024 noted to be at 64 mg/dL. This is above goal of 50 mg/dL given history of CAD. He is currently on atorvastatin 40 mg daily. We will consider increasing to 80 mg daily but 1st we will repeat a set of lipid panel to obtain current levels. Plan: -ordered lipid panel -continue atorvastatin 40 mg daily Plan I spent 75 minutes in reviewing the record, seeing the patient and documenting in the medical record. Orders: Orders AMB Hemoglobin A1c Today E11.9 - Type [address] adrenal wo/w IV con Today D35.01 - Benign neoplasm of right adrenal gland, D35.02 - Benign neoplasm of left adrenal gland Angiotensin Converting Enzyme 02/11/25 D35.01 - Benign neoplasm of right adrenal gland, D35.02 - Benign neoplasm of left adrenal gland 17 Hydroxyprogesterone 03/13/25 D35.01 - Benign neoplasm of right adrenal gland, D35.02 - Benign neoplasm of left adrenal gland Aldosterone 02/11/25 D35.01 - Benign neoplasm of right adrenal gland, D35.02 - Benign neoplasm of left adrenal gland Microalbumin, Random (w Creat) Today E11.9 - Type 2 diabetes mellitus without complications, Z79.4 - manager long term care (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 Liver Panel Today E11.9 - Type 2 diabetes mellitus without complications, Z79.4 - manager long term care (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 Dexamethasone 02/15/25 D35.01 - Benign neoplasm of right adrenal gland, D35.02 - Benign neoplasm of left adrenal gland Cortisol Random 02/15/25 D35.01 - Benign neoplasm of right adrenal gland, D35.02 - Benign neoplasm of left adrenal gland T Spot TB 02/11/25 D35.01 - Benign neoplasm of right adrenal gland, D35.02 - Benign neoplasm of left adrenal gland Renin 02/11/25 D35.01 - Benign neoplasm of right adrenal gland, D35.02 - Benign neoplasm of left adrenal gland Adrenocorticotropic Hormone 02/11/25 D35.01 - Benign neoplasm of right adrenal gland, D35.02 - Benign neoplasm of left adrenal gland Cortisol Random 02/11/25 D35.01 - Benign neoplasm of right adrenal gland, D35.02 - Benign neoplasm of left adrenal gland DHEA Sulfate 02/11/25 D35.01 - Benign neoplasm of right adrenal gland, D35.02 - Benign neoplasm of left adrenal gland Basic Metabolic Panel 02/11/25 D35.01 - Benign neoplasm of right adrenal gland, D35.02 - Benign neoplasm of left adrenal gland Metanephrines, Plasma 02/11/25 D35.01 - Benign neoplasm of right adrenal gland, D35.02 - Benign neoplasm of left adrenal gland Lipid Panel Today E11.9 - Type 2 diabetes mellitus without complications, Z79.4 - penitentiary (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 Comprehensive Met. Panel Today E11.9 - Type 2 diabetes mellitus without complications, Z79.4 - manager long term care (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 Complete Blood Count Auto Diff Today E11.9 - Type 2 diabetes mellitus without complications, Z79.4 - penitentiary (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 Fructosamine Today E11.9 - Type 2 diabetes mellitus without complications, Z79.4 - penitentiary (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 Adrenocorticotropic Hormone 02/15/25 D35.01 - Benign neoplasm of right adrenal gland, D35.02 - Benign neoplasm of left adrenal gland Referrals Diabetes Education Referral E11.9 - Type 2 diabetes mellitus without complications, Z79.4 - penitentiary (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 Team Assistant Nutrition Referral E11.9 - Type 2 diabetes mellitus without complications, Z79.4 - penitentiary (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 Medications: New dexamethasone Take at 11 pm at night and go for blood work at 8 AM next morning 1 mg PO DAILY 1 tab 0RF glucagon 3 mg/actuation (Baqsimi) for emergency use 3 mg intranasal ONCE 1 ea 0RF blood-glucose meter,continuous (FreeStyle Sheng 3 [place]) As directed 1 ea 0RF E11.9 - Type 2 diabetes mellitus without complications, Z79.4 - manager long term care (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 metformin ER 1,000 mg (2 x 500 mg) PO DAILY 60 tabs 6RF blood-glucose sensor (FreeStyle Sheng 3 Plus Sensor device) As directed every 14 days 6 ea 3RF E11.9 - Type 2 diabetes mellitus without complications, Z79.4 - penitentiary (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 Discontinued blood-glucose meter,continuous (FreeStyle Sheng 3 [place]) Discontinued Reason: Doctor's Order Use daily As directed to monitor blood glucose 1 ea 0RF E11.65 - Type 2 diabetes mellitus with hyperglycemia, Z79.4 - penitentiary (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 blood-glucose sensor (FreeStyle Sheng 3 Sensor device) Discontinued Reason: Doctor's Order Apply every 14 days As directed to monitor blood glucose 2 ea 11RF E11.9 - Type 2 diabetes mellitus without complications, Z79.4 - manager long term care (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 Patient Instructions: Do a set of blood work and urine test this week fasting service tech/welder at 08:00 Next week do another set of blood work at 08:00 in the morning after taking the dexamethasone pill at 23:00 the night before This is called the dexamethasone suppression test, instructions verbalized in more detail below Dexamethasone suppression test I would like you to do a dexamethasone suppression test to rule out Cushings syndrome. You will take a 1 mg pill of dexamethasone at 11 PM and then have a blood draw for cortisol at 8AM the next morning. It is important to make sure you take the dexamethasone at 11 PM and have the blood test as close to 8AM as possible. Do CT scan of the adrenal glands, somebody is going to call you to schedule this Restart metformin 1000 mg daily (2 pills of 500) Continue insulin and Jardiance as it is Coding Level of Care Code New Pt Level 5 (76339) Diagnoses Adenoma of both adrenal glands D35.01; D35.02 Insulin dependent type 2 diabetes mellitus E11.9; Z79.4 Mixed hyperlipidemia E78.2 Hyperlipidemia type: mixed hyperlipidemia Time Spent (min) 75
[2025-02-09 13:52] LABS: Glucose, Whole Blood 299 mg/dL (60-115)
--- OUTSIDE RECORDS SUMMARY | 2025-02-09 16:06 | XMS_ITS | Clinical Summary ---
Author Organization [facility] Address [address] [place] [address] Phone Care Team Providers Care Big Data Engineer Name Role Phone Delroy Haile MD Primary Care Provider [phone] Allergies No known active allergies Medications metFORMIN (GLUCOPHAGE) 1,000 mg tablet Take 1 [...] mouth 1 (one) time each day. Active Active Problems Problem Noted Date Diagnosed Date Coronary artery disease invo lving [place] coronary artery of [place] heart without angina pectoris 06/14/2021 Overview (10/21/2024): [...] EF 25% at the time of his SD Improved to 45-50% November 2020 Last Assessment & Plan: The patient's LVEF has recovered with catheter directed medical therapy and 25% of the time of his SD to 40-50% in November 2020. He has [...] Encounters Date Type Department Care Team Description 01/13/2025 Telephone Gastroenterology - [address] [facility] [address] [place] [phone] Aakash Prater MD Special Procedure 12/29/2024 8:30 AM EST Ancillary Procedure [facility] [address] [place] [phone] 12/07/2024 10:40 AM EST Office Visit [facility] - [address] [place] [phone] Zuri Don NP Coronary artery disease involving [place] coronary artery of [place] heart without angina pectoris (Primary Dx); Ischemic cardiomyopathy; HFrEF (heart failure with reduced ejection fraction) ([facility]/HCC) 12/04/2024 Telephone Gastroenterology - [address] [place] [phone] Kisha Palomo MA from Last 3 Months Surgical History Surgery Date Site/Laterality Comments PROSTATECTOMY Medical History Medical History Date Comments Diabetes mellitus ([facility]) Hypertension Hyperlipidemia CAD (coronary artery disease) STEMI (ST elevation myocardial infarction) ([facility]/ [facility]) ONE HEART STENT Family History Medical History [...] Recorded Sex Assigned at Not on file Legal Sex Male 5:57 PM EST Gender Identity Not on file Sexual Orientation Not on file Obstetrics History Last Filed [...] Care Team (Late st Contact Info) Description 03/01/2025 2:30 PM EDT Appointment [facility] Endoscopy [address] [place] [phone] Aakash Prater MD [address] [address] Health Maintenance Due Date Last Done Comments Diabetes: Annual Foot Exam 1971 Diabetes: Annual Retina Eye Exam 1971 Zoster Vaccines (1 of 2) 2011 Pneumococcal Vaccine: 50+ Years (2 of 2 - PCV) 01/06/2018 01/06/2017 RSV Immunization Patients 60 + Years Old [...] patient's age to complete this topic Meningococcal B Vacine Aged Out No lo nger eligible based on patient's age to complete [...] 10:57 AM EST Coronary artery disease involving [place] coronary artery of [place] heart without angina pectoris Ischemic cardiomyopathy HFrEF (heart failure with reduced ejection fraction) ([facility]) ECG 12-LEAD Routine 12/07/2024 11:26 AM EST Coronary artery disease involving [place] coronary artery of [place] heart without angina pectoris COLONOSCOPY Routine 10/27/2024 10:42 AM EST Hx of colonic polyps BASIC METABOLIC PANEL Routine 10/26/2024 2:04 PM EST from Last 3 Months or Most Recently Relevant to Health Maintenance Results * NM LEXISCAN STRESS TEST (REST [...] tracer uptake. Zuri Don NP CV STRESS PROCEDURES F inal Result * ECG 12 lead (12/07/2024 11:26 AM EST) Ventricular Rate ECG 71 BPM GEMUSE Atrial Rate 71 BPM GEMUSE P-R Interval 180 ms GEMUSE QRS Duration 128 ms GEMUSE Q-T Interval 434 ms GEMUSE QTc 471 ms GEMUSE P Wave Swan 76 degrees GEMUSE R Swan 82 degrees GEMUSE T Swan 66 degrees GEMUSE ECG Interpretation Normal sinus rhythm Right bundle branch block Abnormal ECG Confirmed by MD Dean Christopher ([id number]) on 12/08/2024 10:31:31 AM GEMUSE 12/07/2024 10:5 6 AM EST 12/08/2024 10:31 AM EST Zuri Don GLUCOSE AND SYRUP WEIGHER ECG ORDERABLES Edited Result - Final GEMUSE * COLONOSCOPY Anesthesia - MAC; [facility] ENDOSCOPY (10/27/2024 10:42 AM EST) Anatomical Region [...] present medications. Narrative 11/03/2024 9:49 AM EST [facility] GI Patient Name: Armando Martinez Procedure Date: [...] In: Scope Out: ? Endoscopy Department at [facility] - [address] [place] [address], ? [place] [address] Procedure Note Aakash Prater MD - 11/03/2024 [facility] GI Patient Name: Armando Martinez Procedure Date: [...] Scope In: Scope Out: Endoscopy Department at [facility] - [address] [place] [phone] IMPRESSION: - Preparation of the colon was unsatisfactory. - Stool in the transverse colon. - No specimens collected. Recommendation: - Patient has a contact number available for emergencies. The signs and symptoms of potential delayed complications were discussed with thepatient. Return to normal activities tomorrow. Written discharge instructions were provided to thepatient. - Resume previous diet. - Continue present medications. us Aakash Prater MD GI~PROCEDURE ORDERABLES Final R esult * (ABNORMAL) Basic metabolic panel (10/26/2024 2:04 [...] AM EST Performed at: ??01 - [facility] [address] ??[id number] Landscape Management Technician: Vikki Quiros MD, Phone: ??[phone] us Nasim Dean MD LAB BLOOD ORDERABLES Kira nolasco Result [facility] 1 from Last 3 Months or Most Recently Relevant to Health Maintenance Insurance MEDICAID - [place] [employer] MEDICARE Care Teams Big Data Engineer Relationship Specialty Start Date End Date Delroy Haile MD [address] [place] [address] Dr Ebonie [place] PCP - General 03/28/23
--- OUTSIDE RECORDS SUMMARY | 2025-02-09 16:06 | XMS_ITS | Encounter Summary ---
Author Organization [facility] Address [address] [place] [address] Care Team Providers Care Grading Machine Feeder Name Role Phone Delroy Haile MD Primary Care Provider [phone]- [phone] Reason for Visit * Reason Onset Date Comments Special Procedure 01/13/2025 Encounter Details Date Type Department Care Team (Late st Contact Info) Description 01/13/2025 Telephone Gastroenterology - [address] [place] [phone] Aakash Prater MD [address] [place] [address] Special Procedure Social History Tobacco Use Types Packs/Day Years [...] on file Sexual Orientation Not on file documented as of this encounter Progress Notes * Laureen King MA - 01/13/2025 8:53 AM EST LMOM/ CANCELED PROCEDURE FOR 01/14/25. * Alisa Cota - 01/13/2025 8:32 AM EST Patient calling to reschedule colonoscopy due to bad weather tomorrow 2/13 documented in this encounter Plan of Treatment Upcoming Encounters Date Type Department Care Team (Late st Contact Info) Description 03/01/2025 2:30 PM EDT Appointment [facility] Endoscopy [address] [place] [address] Aakash Prater MD [address] [address] documented as of this encounter Visit Diagnoses Not on filedocumented in this encounter Care Teams Grading Machine Feeder Relationship Specialty Start Date End Date Delroy Haile MD [address] [place] [address] [address] [place], [place] PCP - General 03/28/23 documented as of this encounter
--- OUTSIDE RECORDS SUMMARY | 2025-02-09 16:06 | XMS_ITS | Clinical Summary ---
Author Organization [employer] Address [address] [facility] 7t [place] [address] Care Team Providers Care Corporate Financial Analyst Name Role Phone Unavailable Primary Care Provider [...] Mass Index - - Plan of Treatment Health Maintenance Due Date Last Done Comments CT Colonography 1961 Colonoscopy 1961 Colorectal Cancer Screening 1961 Depression Screening 1961 Diabetes: Hemoglobin A1C 1961 FIT DNA/Cologuard 1961 FIT 1961 FOBT 1961 HIV Screening 1961 Lipid Panel 1961 SDOH Screening 1961 Sigmoidoscopy 1961 Diabetes: Foot Exam 1971 Alcohol/Substance Use Screening 1973 Tobacco Screening 1973 Hepatitis C Screening 1979 Diabetes: [...] 01/08/2025 01/08/2024, 06/2024, 01/08/2024, Additional history exists DTaP/Tdap/Td Vaccines (2 - Td or Tdap) [...] patient's age to complete this topic Insurance [facility] [address] [place] [address] [address] STANDARD * Guarantor: Armando Martinez Account Type Relation to Patient Date of Phone Billing Address Personal/Family Self [address] [place] Care Teams Corporate Financial Analyst Relationship Specialty Start Date End Date Delroy Haile [address] [place] [address] [place] [address] Primary Care Provider 09/30/23
== END 2025-02-09 15:20 | disposition home or self-care (01) ==
LOC: HO.ENCR 13:17
PROVIDERS: PCP Family Medicine; Visit Provider Student in an Organized Health Care Education/Training Program
DX: E11.9 Type 2 diabetes mellitus without complications (principal); Z79.4 Long term (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; D35.01 Benign neoplasm of right adrenal gland; D35.02 Benign neoplasm of left adrenal gland; E78.2 Mixed hyperlipidemia
CPT/HCPCS: 99205

== ENCOUNTER → 2025-02-09 13:17 | Outpatient (BNVA) | payer MEDICARE, SELFPAY | PROVIDERS: PCP Family Medicine; Visit Provider Student in an Organized Health Care Education/Training Program | DX: E11.9 Type 2 diabetes mellitus without complications (principal); D35.01 Benign neoplasm of right adrenal gland; D35.02 Benign neoplasm of left adrenal gland; E78.2 Mixed hyperlipidemia; Z79.4 Long term (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 | CPT/HCPCS: 82947; 83036; 99202 ==

== ENCOUNTER 2025-02-23 11:19 | Outpatient (AMB) | payer MEDICARE, SELFPAY ==
--- NOTE | 2025-02-23 11:23 | MHC.PC.OV ---
Vital Signs 02/23/25 11:30 Height 5 ft 6.5 in Weight 177 lb 8 oz BMI 28.2 BP 110/58 L Blood Pressure Location Rt brachial Position Sitting Respiration 12 Pulse 97 Pulse Source Pulse Oximeter Temp 98.4 F Temp Source Oral Pulse Oximetry (%) 98 Oxygen Delivery Method Room Air Intake Visit Reasons: f/u weight and diabetic changes Intake Note: patient is scheduled with pcp to review weight and dm Sales Secretary Required: No Allergies No Known Allergies Allergy (Verified 02/23/25 11:28) Medication List - Last Reconciled 02/23/25 by Delroy Haile MD atorvastatin 40 mg PO DAILY 90 days blood sugar diagnostic (FreeStyle Lite Strips) Use daily As directed to check blood glucose blood-glucose meter (FreeStyle Lite Meter kit) Use daily As directed to check blood sugars blood-glucose meter,continuous (FreeStyle Sheng 3 Sulphur) As directed blood-glucose sensor (FreeStyle Sheng 3 Plus Sensor device) As directed every 14 days bupropion HCl SR 200 mg PO BID buspirone 15 mg PO BID clotrimazole 1% 1 appl topical BID 2 weeks dexamethasone 1 mg PO DAILY docusate sodium (Colace) 100 mg PO DAILY empagliflozin (Jardiance) 10 mg PO DAILY fluoxetine 40 mg PO DAILY glucagon 3 mg/actuation (Baqsimi) 3 mg intranasal ONCE glucose (Dex4 Glucose) 16 grams (4 x 4 gram) PO Q15M PRN insulin glargine (Lantus Solostar U-100 Insulin) 20 units (0.2 mL) subcut QPM 30 days lancets (FreeStyle Lancets) use daily as directed to check blood glucose losartan 25 mg PO DAILY metformin ER 1,000 mg (2 x 500 mg) PO DAILY metoprolol succinate ER 100 mg PO DAILY multivitamin 1 tab PO DAILY olanzapine 2.5 mg PO BEDTIME PRN pen needle, diabetic (BD Mildred 2nd Gen Pen Needle) Daily As directed, 90 days [probiotic .] sildenafil 100 mg PO DAILY 30 days simethicone 80 mg PO BID-QID PRN 30 days spironolactone 12.5 mg PO DAILY topiramate 150 mg PO BEDTIME trazodone 200 mg PO BEDTIME PRN Tobacco use date assessed: 12/31/24 Dental Screening Dental Screen Date: 11/11/24 HPI f/u weight and diabetic changes HPI Details 64 y/o male presents to f/u weight, diabetes. A1c 02/09/25 6.7%. He is on Jardiance, Lantus 20 units, metformin 1000mg daily. Blood pressure today 110/58, 97p. He is on metoprolol 100mg, losartan 25mg, spironolactone 12.5mg daily. [facility] Medical History (Updated 02/23/25 @ 12:18 by Delroy Haile MD) Adenoma of both adrenal glands Surgical History Hx of prostatectomy Hx of colonoscopy Family History Mother Depression Father No problems noted. Maternal Grandfather Diabetes mellitus Maternal Grandmother Diabetes mellitus Other FH: mental illness Substance abuse Social History Housing: House Alcohol intake: current Patient Tobacco Use Status: Former Tobacco user Tobacco use type: Cigarette Cigarettes Per Day: 15 e-Cigarette/Vaping Use: Never Used Second Hand Smoke Exposure: No service: No Current occupational status: retired and disabled Current occupational exposures/hazards: No Hearing needs: No Vision needs: No Questionnaire Thrive Questionnaire Date Thrive assessed: 12/28/24 I am a: Patient What is your living situation today?: I have a steady place to live Within the past 12 months, did the food you bought not last and you didn't have the money to get more?: Sometimes True Within the past 12 months, did you worry whether your food would run out before you got money to buy more?: Never true Do you have trouble paying for medicines?: No Do you have trouble getting transportation to medical appointments?: No Do you have trouble paying your heating and electricity bill?: No Do you have trouble taking care of your child, family member or friend?: No Do you have trouble with day-to-day activities such as bathing, preparing meals, shopping, managing finances, etc.?: No Are you currently unemployed and looking for a job?: I choose not to answer this question Are you interested in more education?: No Currently or been in a relationship where the following occur: Controlled Emotionally THRIVE Score: 2 DOROTEO-7 AMB Questionnaire DOROTEO-7 Date DOROTEO - 7 assessed: 12/31/24 Source: Developed by Drs. Escobar Nelson, Anna Malik, Franck Bergman and colleagues, with an educational francesca from [employer]. Review of Systems Const Denies chills, Denies fatigue, Denies fever(s), Denies headache(s) and Denies weakness ENT Denies dizziness and Denies headache(s) Card Denies dyspnea Resp Denies cough, Denies dyspnea, Denies wheezing and Denies other (shortness of breath) Musc Denies numbness and Denies tingling Neuro Denies dizziness, Denies headache(s), Denies numbness, Denies tingling and Denies weakness Psych Denies anxiety and Denies depression Endo Denies fatigue Aller/Immun Denies wheezing Physical exam (Primary Care) Vital Signs: Last Vital Signs Temp 98.4 F 02/23/25 11:30 Pulse 97 02/23/25 11:30 Resp 12 02/23/25 11:30 BP 110/58 L 02/23/25 11:30 Pulse Ox 98 02/23/25 11:30 Oxygen Delivery Method Room Air 02/23/25 11:30 BMI result Body Mass Index 28.2 Tobacco/Smoking Status: Tobacco use Status Tobacco use date assessed 12/31/24 02/23/25 11:23 Patient Tobacco Use Status Former Tobacco user 02/23/25 11:23 Tobacco use type Cigarette 02/23/25 11:23 e-Cigarette/Vaping Use Never Used 02/23/25 11:23 Thrive Assessment: Date of Thrive Assessment Date Thrive assessed 12/28/24 02/23/25 11:23 Currently or been in a relationship where the following occur: Controlled Emotionally Const General: well developed; No acute distress Nutritional Appearance: well nourished Orientation/consciousness: patient oriented x3 HENMT Head: Yes normocephalic and Yes atraumatic Eyes General: appearance normal, both eyes and all related structures Pupils: Equal, round and reactive pupils present EOM: EOMs intact bilaterally Resp Effort & Inspection: normal respiratory effort Neuro General: patient oriented x3 and gait normal Cranial nerves: Yes Equal, round and reactive pupils present Psych Affect: normal affect Coding Level of Care Code Est Pt Level 4 (62368) Diagnoses Hypertension due to endocrine disorder I15.2 Hypertension type: secondary to endocrine disorders Controlled type 2 diabetes mellitus E11.9 Coronary artery disease I25.10 History of ID (myocardial infarction) I25.2 Dry skin L85.3 Overweight E66.3 Constipation K59.00 Assessment & Plan Assessment & Plan (1) Hypertension: Code(s): I10 - Essential (primary) hypertension Category: Medical Qualifiers: Hypertension type: secondary to endocrine disorders Qualified Code(s): I15.2 - Hypertension secondary to endocrine disorders Plan: Blood?pressure?is?controlled.??Goal?is?less?than?130/80. Continue?current?medications (2) Controlled type 2 diabetes mellitus: Code(s): E11.9 - Type 2 diabetes mellitus without complications Category: Medical Plan: A1c?6.7%.??Good?control. Goal?is ?less?than?7.0% Continue?current?medication?regimen (3) Coronary artery disease: Code(s): I25.10 - Atherosclerotic heart disease of marshall coronary artery without angina pectoris Category: Medical Plan: Stable (4) History of ID (myocardial infarction): Code(s): I25.2 - Old myocardial infarction Category: Medical Plan: Stable (5) Dry skin: Code(s): L85.3 - Xerosis cutis Category: Medical Plan: Complaints?of?dry?skin?on?face?and?scalp.??Patient?notes?that?drinks?very?little?water?per?day Advised?increasing?hydration He?can?use?a?good?facial?moisturizer Humidified?air If?not?improving,?will?refer?to?Dermatology (6) Overweight: Code(s): E66.3 - Overweight Category: Medical Plan: Patient?had?gained?about?20?lb?since?this?past?fall Encouraged?increased?exercise/activity?and?also?decrease?intake Set?goal?for?about?3?lb?over?the?next?3?months (7) Constipation: Code(s): K59.00 - Constipation, unspecified Category: Medical Plan: Constipation?and?followed?by?.??Has?an?upcoming?colonoscopy. Advised?he?increase?hydration?as?above. Continue?using?Colace
[2025-02-23 11:30] VITALS: BP 110/58; PULSE 97; RESP 12; TEMP 36.9; O2SAT 98; BMI 28.2
--- OUTSIDE RECORDS SUMMARY | 2025-02-23 14:06 | XMS_ITS | Clinical Summary ---
Author Organization [employer] Address [address] [facility] 7t [place] [address] Care Team Providers Care Transit Authority Police Officer Name Role Phone Unavailable Primary Care Provider [...] patient's age to complete this topic Insurance [facility] [address] [place] [id number] [address] STANDARD * Guarantor: Armando Martinez Account Type Relation to Patient Date of Phone Billing Address Personal/Family Self [address] [place] Care Teams Transit Authority Police Officer Relationship Specialty Start Date End Date Delroy Haile [address] [place] [address] [place] [address] Primary Care Provider 09/30/23
--- OUTSIDE RECORDS SUMMARY | 2025-02-23 14:06 | XMS_ITS | Clinical Summary ---
Author Organization [facility] Address [address] [place] [address] Phone Care Team Providers Care Churn Driller Helper Name Role Phone Delroy Haile MD Primary Care Provider [phone]- [phone] Allergies No known active allergies Medications metFORMIN [...] bedtime. TOOK 10 UNITS LAST NIGHT Active sildenafiL (VIAGRA) 50 mg tablet Take 1 tablet (50 mg total) by mouth as needed. Active mirtazapine (REMERON) 15 mg tablet Take 1 tablet (15 mg total) by mouth 1 (one) time each day. Active atorvastatin (LIPITOR) 20 mg tablet Take 1 tablet (20 mg total) by mouth 1 (one) time each day. 9 Active metoprolol succinate (TOPROL-XL) 100 mg 24 hr tablet Take 1 tablet (100 mg total) by mouth 1 (one) time each day. 3 Active busPIRone (BUSPAR) 15 mg tablet Take 1 tablet (15 mg total) by mouth 1 (one) time each day. 4 Active buPROPion SR (WELLBUTRIN SR) 200 mg 12 hr tablet Take 1 tablet (200 mg total) by mouth 1 (one) time each day. 4 Active lactobacillus acidoph-l.bulga r 100 million cell granules in packet Take 1 packet by mouth 1 (one) time each day. Active multivitamin tablet Take 1 tablet by mouth 1 (one) time each day. Active spironolactone (ALDACTONE) 25 mg tablet Take 0.5 tablets (12.5 mg total) by mouth 1 (one) time each day. 45 tablet 2 5 Active spironolactone (ALDACTONE) 25 mg tablet TAKE 1/2 TABLET BY MOUTH EVERY DAY 4 02/13/20 25 Discontinue d(Reorder) polyethylene glycol (COLYTE) 240-22.72-6.72 -5.84 gram solution Take 4,000 mL by mouth 1 (one) time for 1 dose. Drink 8 oz every 10-15 minutes until solution is gone 4000 mL 5 02/16/20 25 Active Problems Problem Noted Date Diagnosed Date Coronary artery disease invo lving creek coronary artery of creek heart without angina pectoris 06/14/2021 Overview (10/21/2024): [...] EF 25% at the time of his AR Improved to 45-50% November 2020 Last Assessment & Plan: The patient's LVEF has recovered with catheter directed medical therapy and 25% of the time of his AR to 40-50% in November 2020. He has [...] [address] [place] [address] Aakash Prater MD Special Procedure 12/29/2024 8:30 AM EST Ancillary Procedure [facility] [address] [place] [address] 12/07/2024 10:40 AM EST Office Visit [facility] [address] [place] [address] Zuri Don NP Coronary artery disease involving creek coronary artery of creek heart without angina pectoris (Primary Dx); Ischemic cardiomyopathy; HFrEF (heart failure with reduced ejection fraction) (CMS/HCC) 12/04/2024 Telephone Gastroenterology - [address] [place] [address] Kisha Palomo MA from Last 3 Months Surgical History Surgery Date Site/Laterality Comments PROSTATECTOMY Medical History Medical History Date Comments Diabetes mellitus (CMS/HCC) Hypertension Hyperlipidemia CAD (coronary artery disease) STEMI (ST elevation myocardial infarction) ([facility]) ONE HEART STENT Family History Medical History [...] EST Inhaled Oxygen Concentration - - Weight 77.1 kg (170 lb) 02/22/2025 11:00 AM EDT Height 170.2 cm (5' 7 ) 02/22/2025 11:00 AM EDT Body Mass Index 26.63 02/22/2025 11:00 AM EDT Plan of Treatment Upcoming Encounters Date Type Department Care Team (Late st Contact Info) Description 03/01/2025 2:30 PM EDT Hospital Encounter [facility] Endoscopy [address] [place] [address] Aakash Prater MD [address] [address] Health Maintenance Due Date Last Done Comments [...] 10:57 AM EST Coronary artery disease involving creek coronary artery of creek heart without angina pectoris Ischemic cardiomyopathy HFrEF (heart failure with reduced ejection fraction) ([facility]) ECG 12-LEAD Routine 12/07/2024 11:26 AM EST Coronary artery disease involving creek coronary artery of creek heart without angina pectoris COLONOSCOPY Routine 10/27/2024 [...] loop of bowel with high tracer uptake. us Zuri Don NP CV STRESS PROCEDURES F inal Result * ECG 12 lead (12/07/2024 11:26 AM EST) Ventricular Rate ECG 71 BPM GEMUSE Atrial Rate 71 BPM GEMUSE P-R Interval 180 ms GEMUSE QRS Duration 128 ms GEMUSE Q-T Interval 434 ms GEMUSE QTc 471 ms GEMUSE P Wave Iselin 76 degrees GEMUSE R Iselin 82 degrees GEMUSE T Iselin 66 degrees GEMUSE ECG Interpretation Normal sinus rhythm Right bundle branch block Abnormal ECG Confirmed by MD Jermaine, Nasim ([id number]) on 12/08/2024 10:31:31 AM GEMUSE 12/07/2024 10:5 6 AM EST 12/08/2024 10:31 AM EST us Zuri Don NP ECG ORDERABLES Edited Result - Final GEMUSE * COLONOSCOPY Anesthesia - MAC; [facility] ENDOSCOPY (10/27/2024 10:42 AM EST) Anatomical Region [...] present medications. Narrative 11/03/2024 9:49 AM EST [facility] GI Patient Name: Armando Martinez [...] In: Scope Out: ? Endoscopy Department at [facility] - [address] [place] [address], ? [place] [address] Procedure Note Aakash Prater MD - 11/03/2024 [facility] GI Patient Name: Armando Martinez [...] Scope In: Scope Out: Endoscopy Department at [facility] - [address] [place] [phone] IMPRESSION: - Preparation of the colon was [...] AM EST Performed at: ??01 - [facility] [address] ??[id number] Lead Medical Technologist: Vikki Quiros MD, Phone: ??[phone] us Nasim Dean MD LAB BLOOD ORDERABLES Kira constance Result [facility] 1 from Last 3 Months or Most Recently Relevant to Health Maintenance Insurance [place] Member Subscriber Plan / Payer (Ef fective 2024-Present) Name:Armando Martinez Relation to Subscriber:Self Name:Armando Martinez Payer ID:[id number] Group ID:Not on file Type:Not on file Address: [facility] [employer] ATTN:CLAIMS [address] [place] [address] [employer] MEDICARE Care Teams Churn Driller Helper Relationship Specialty Start Date End Date Delroy Haile MD [address] [place] [address] Dr Ebonie [place] PCP - General 03/28/23
== END 2025-02-23 12:15 | disposition home or self-care (01) ==
LOC: HO.HMCFM 11:20
PROVIDERS: PCP Family Medicine; Visit Provider Family Medicine
DX: I15.2 Hypertension secondary to endocrine disorders (principal); E11.9 Type 2 diabetes mellitus without complications; I25.10 Atherosclerotic heart disease of native coronary artery without angina pectoris; I25.2 Old myocardial infarction; L85.3 Xerosis cutis; E66.3 Overweight; K59.00 Constipation, unspecified

== ENCOUNTER → 2025-02-23 11:19 | Outpatient (BNVA) | payer MEDICARE, SELFPAY | PROVIDERS: PCP Family Medicine; Visit Provider Family Medicine | DX: I15.2 Hypertension secondary to endocrine disorders (principal); E11.9 Type 2 diabetes mellitus without complications; I25.10 Atherosclerotic heart disease of native coronary artery without angina pectoris; I25.2 Old myocardial infarction; L85.3 Xerosis cutis; E66.3 Overweight; Z68.28 Body mass index [BMI] 28.0-28.9, adult; K59.00 Constipation, unspecified; Z71.3 Dietary counseling and surveillance | CPT/HCPCS: 99212 ==

== ENCOUNTER 2025-03-08 08:00 | Outpatient (REF) | payer MEDICARE, SELFPAY ==
--- OUTSIDE RECORDS SUMMARY | 2025-03-08 08:08 | XMS_ITS | Clinical Summary ---
Author Organization [employer] Address [address] [facility] 7t [place] [address] Care Team Providers Care Journeyman Press Operator Name Role Phone Unavailable Primary Care Provider [...] patient's age to complete this topic Insurance [facility] [address] [place] [phone] [address] STANDARD * Guarantor: Armando Martinez Account Type Relation to Patient Date of Phone Billing Address Personal/Family Self [address] [place] Care Teams Journeyman Press Operator Relationship Specialty Start Date End Date Delroy Haile [address] [place] [address] [place] [address] Primary Care Provider 09/30/23
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
[2025-03-08 08:44] LABS: MANUAL DIFF FLAG NO
[2025-03-08 09:01] LABS: Basophils Percent Auto 0.5 % (0-2); Eosinophils Absolute Auto 0.3 X10*3/uL (0.0-0.4); Eosinophils Percent Auto 3.9 % (0-4); Hematocrit 43.9 % (42.0-52.0); Hemoglobin 13.1 g/dl (14.0-18.0); Imm Gran Abs Auto 0.02 X10*3/uL (0.00-0.03); Imm Gran Pct Auto 0.2 % (0.0-0.4); Lymphocytes Percent Auto 23.3 % (20-40); Mean Corpuscular HGB Conc 29.8 g/dl (31.0-36.0); Mean Corpuscular Hemoglobin 23.1 pg (27.0-33.0); Mean Corpuscular Volume 77.4 fL (80.0-98.0); Mean Platelet Volume 10.2 fL (9.4-12.4); Monocytes Absolute Auto 0.7 X10*3/uL (0.1-1.2); Monocytes Percent Auto 8.1 % (2-11); Neutrophils Absolute Auto 5.3 x10*3/uL (2.0-8.3); Platelet Count 243 X10*3/uL (160-400); Red Blood Count 5.67 X10*6/uL (4.60-5.80); Red Cell Distribution Width 17.7 % (11.0-16.0); White Blood Count 8.4 X10*3/uL (4.8-10.8)
[2025-03-08 09:19] LABS: Estimated Average Glucose 154 mg/dL; Hemoglobin A1C 183.5719 umol/L; Total Hemoglobin (HGBA1C) 3498.1282 umol/L
[2025-03-08 10:22] LABS: Alanine Aminotransferase 26 U/L (0-40); Albumin Level 4.1 g/dL (3.5-5.0); Alkaline Phosphatase 82 U/L (39-117); Anion Gap 9 (12-20); Aspartate Amino Transferase 20 U/L (5-37); Bilirubin Direct < 0.2 mg/dL (0.0-0.5); Bilirubin Total 0.2 mg/dL (0.0-1.0); Blood Urea Nitrogen 27 mg/dL (9-16); Calcium 9.2 mg/dL (8.4-10.2); Carbon Dioxide 26 mmol/L (22-29); Chloride 110 mmol/L (96-108); Cholesterol 125 mg/dL (<200); Estimated Glomerular Filt Rate 59; Glucose Random 135 mg/dL (60-115); HDL Cholesterol 62 mg/dL (>40); LDL Cholesterol Calculated 56 mg/dL (<100); Potassium 4.3 mmol/L (3.3-5.1); Sodium 141 mmol/L (135-145); TSH reflex Free T4 1.62 uIU/mL (0.32-4.0); Total Protein 7.2 g/dL (6.5-8.0); Triglycerides 38 mg/dL (<150)
[2025-03-08 11:19] LABS: Cortisol Random 3.5 ug/dL
[2025-03-08 11:19] LABS: Microalbumin Urine < 5.0 mg/L
[2025-03-09 18:24] LABS: DHEA Sulfate 53 mcg/dL (20-217)
[2025-03-11 06:22] LABS: TS Negative Control Passed; TS Panel A 0; TS Panel B 2; TS Positive Control Passed; TSpotTB Negative (Negative)
[2025-03-11 19:03] LABS: Angiotensin Converting Enzyme 21.6 U/L (9-67)
[2025-03-11 21:13] LABS: Adrenocorticotropic Hormone <5 pg/mL (6-50)
[2025-03-12 04:39] LABS: Fructosamine 288 umol/L (205-285)
[2025-03-12 07:55] LABS: Metanephrine, Free 37 pg/mL (<=57); Normetanephrines, Free 97 pg/mL (<=148); Total Metanephrine, Free 134 pg/mL (<=205)
[2025-03-12 13:54] LABS: Renin 9.81 ng/mL/h (0.25-5.82)
== END 2025-03-08 08:01 | disposition home or self-care (01) ==
LOC: HO.LAB 08:00
PROVIDERS: Student in an Organized Health Care Education/Training Program; PCP Physician Assistant; Visit Provider Physician Assistant
DX: E11.9 Type 2 diabetes mellitus without complications (principal); R91.8 Other nonspecific abnormal finding of lung field; Z79.4 Long term (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; I15.2 Hypertension secondary to endocrine disorders; D35.02 Benign neoplasm of left adrenal gland; D35.01 Benign neoplasm of right adrenal gland
CPT/HCPCS: 36415; 80053; 80061; 80299; 82024; 82043; 82088; 82164; 82248; 82533; 82570; 82627; 82985; 83036; 83498; 83835; 84244; 84443; 85025; 86481

== ENCOUNTER 2025-03-16 12:26 | Outpatient (AMB) | payer MEDICARE, SELFPAY ==
--- NOTE | 2025-03-16 12:57 | MHC.AMDMED ---
Intake Intake Visit Reasons: T2DM Cigarette Tester Required: No Accompanied by: Self / Same As Patient Allergies No Known Allergies Allergy (Verified 02/23/25 11:28) HPI Comprehensive Diabetes Asmnt Most Recent Diabetes Results: Microalb/Creat Ratio TNP 03/08/25 Cholesterol 125 mg/dL (<200) 03/08/25 HDL Cholesterol 62 mg/dL (>40) 03/08/25 Triglycerides 38 mg/dL (<150) 03/08/25 Creatinine 1.24 mg/dL (0.5-1.4) 03/08/25 Blood Urea Nitrogen 27 mg/dL (9-16) H 03/08/25 Sodium 141 mmol/L (135-145) 03/08/25 Potassium 4.3 mmol/L (3.3-5.1) 03/08/25 Chloride 110 mmol/L (96-108) H 03/08/25 Carbon Dioxide 26 mmol/L (22-29) 03/08/25 Calcium 9.2 mg/dL (8.4-10.2) 03/08/25 AST 20 U/L (5-37) 03/08/25 ALT 26 U/L (0-40) 03/08/25 Total Protein 7.2 g/dL (6.5-8.0) 03/08/25 Albumin 4.1 g/dL (3.5-5.0) 03/08/25 [facility] Medical History (Updated 02/23/25 @ 12:18 by Delroy Haile MD) Adenoma of both adrenal glands Surgical History Hx of prostatectomy Hx of colonoscopy Family History Mother Depression Father No problems noted. Maternal Grandfather Diabetes mellitus Maternal Grandmother Diabetes mellitus Other FH: mental illness Substance abuse Social History Housing: House Alcohol intake: current Patient Tobacco Use Status: Former Tobacco user Tobacco use type: Cigarette Cigarettes Per Day: 15 e-Cigarette/Vaping Use: Never Used Second Hand Smoke Exposure: No service: No Current occupational status: retired and disabled Current occupational exposures/hazards: No Hearing needs: No Vision needs: No Assessment & Plan Assessment & Plan (1) Controlled type 2 diabetes mellitus: Code(s): E11.9 - Type 2 diabetes mellitus without complications Plan: Diabetes self-management education and support participation record Assessment/scale: 1= needs instructed? 2= needs review? 3= comprehend keep point? 4= demonstrates understanding/ competent? NC= Not Covered Topics Learning Objective: Initial visit Initial or post srvc Initial or post srvc Initial or post srvc Initial or post srvc Initial or post srvc Post srvc Comments Pre Edu-assessment/plan Outcome or reassess Outcome or reassess Outcome or reassess Outcome or reassess Outcome or reassess Outcome or reassess Diabetes pathophysiology 1 Healthy eating 1 Being active 1 Taking medication 1 Monitoring glucose 1 Acute complication 1 Chronic complicated 1 Lifestyle and healthy coping 1 Diabetes distress in support 1 ?Diabetes pathophysiology: ?Defined diabetes med identify own type of diabetes; list 3 options for treating diabetes Healthy eating: ?Described effect of type, amount and ?timing of food on blood glucose; list 3 methods for planning meal Being active: ?State effect of exercise on blood glucose level Taking medication: ?State effect of diabetes medications on diabetes; name diabetes medications taking, action and side effects Monitoring glucose: ?Identify recommended blood glucose targets and personal target Acute complication: ?List symptoms and treatment of hyper and hypoglycemia, DKA, sick day guidelines and guidelines for severe weather or situations of crisis and diabetes supply manage Chronic complication: ?To find the relationship of blood glucose levels to long-term complications of diabetes in screening and preventative measures Lifestyle and healthy coping: ?Described lifestyle and healthy coping strategies to rule out diabetes self-management Diabetes to stress and support: ?Recognize Diabetes to stress and be able to identified support options Learning objectives: The patient was provided with verbal and written education on the following topics as outlined below. The patient met all learning objectives and was able to verbalize understanding and provide teach back of education topics discussed . The patient was provided with the opportunity to ask questions and all questions were answered. Patient Assessment Assess patient education level/literacy/barriers, last A1c 6.7% 02/09/25, although fasting blood sugar on that day was high, fastener technologist questioning the accuracy of A1c Current regimen: Insulin lantus 20 units at night JArdiance 10 mg daily Denies any symptoms of hyperglycemia including polyphagia, polyuria, polydipsia. Denies any hypoglycemic symptoms. Patient questions/concerns What is Diabetes? Pathophysiology How the body produces and uses insulin Identify type of DM Risk factors Signs of Diabetes Brief overview of Diabetes Management Monitoring blood sugar Following a meal plan Regular exercise Maintaining a healthy weight Taking medication as needed Members of the care team (PCP, RN, MA, RD, CDE, fastener technologist) Blood glucose monitoring When/how often to test Target blood sugar ranges Patient did not bring reader or sensor to today's visit Instructed Pt on what CGM can and can't do CGM Can: Give Pt minute by minute reading of glucose levels Displays glucose trend arrows that represents the direction glucose levels are fluctuating Give insight on decisions about how to dose insulin CGM cannot: Improve glucose control on its own Completely eliminate the need for all finger sticks Make dosing decision for you CGM is the reading of glucose in the interstitial fluid not actual blood glucose, finger sticks are still necessary when Pt's symptom?s do not match sensor reading and if sensors prompts Pt to do a fingerstick Patient? is interested in the Reviewed Medicare guidelines for obtaining CGM Reviewed delay of CGM from fingersticks Reminded pt that if symptoms do not match sensor still needs to check fingersticks. Introduction to Nutrition Importance of healthy diet in managing DM Diet is personalized to individual preference Review patient?s regular diet/food preferences Who prepares meals/does food shopping/ Dining out?/ Barriers? How diet effects glucose Eating 3 balanced meals a day with small, healthy snacks between meals Review food groups Carbohydrates: What is a carbohydrate/Which food/food groups are considered carbohydrates Effect of carbohydrates on blood glucose Portion sizes Reading food labels Basic carb counting (if applicable per nursing assessment) Plate method Meal planning Recommendations: Follow plate method, consistent carbs and read nutritional labels. Smart Goal: Patient will identify foods in current meal plan that contain carbohydrates Educational Materials: The patient was provided with the following written educational materials: Planning Healthy Meals Handout Patient Response to instructions: Comprehension of Instructions: Fair Readiness to make changes: Contemplation How confident they feel about making changes: fair Portions of this note were created using voice recognition software, please excuse any words or phrases that may have been misinterpreted. Coding Level of Care Code Est Pt Level 1 (23658) Diagnoses Controlled type 2 diabetes mellitus E11.9
--- OUTSIDE RECORDS SUMMARY | 2025-03-16 15:12 | XMS_ITS | Clinical Summary ---
Author Organization [employer] Address [address] [facility] [facility] [address] [place] [address] Care Team Providers Care Crew Attendant Name Role Phone Unavailable Primary Care Provider [...] patient's age to complete this topic Insurance [facility] [address] [place] [id number] [address] STANDARD * Guarantor: Armando Martinez Account Type Relation to Patient Date of Phone Billing Address Personal/Family Self [address] [place] Care Teams Crew Attendant Relationship Specialty Start Date End Date Delroy Haile [address] [place] [address] [place] [address] Primary Care Provider 09/30/23
--- OUTSIDE RECORDS SUMMARY | 2025-03-16 15:12 | XMS_ITS | Clinical Summary ---
Author Organization [facility] Address [address] [place] [address] Phone Care Team Providers Care Boat Canvas Installer Name Role Phone Delroy Haile MD Primary Care Provider [phone] Allergies No known active allergies Medications metFORMIN [...] total) by mouth. at bedtime. 5 Active polyethylene glycol (COLYTE) 240-22.72-6.72 -5.84 gram solution Take 4,000 mL by mouth 1 (one) time for 1 dose. Drink 8 oz every 10-15 minutes until solution is gone 4000 mL 5 02/16/20 25 Active Problems Problem Noted Date Diagnosed Date Coronary artery disease invo lving [place] coronary artery of [place] heart without angina pectoris 06/14/2021 Overview (10/21/2024): [...] EF 25% at the time of his [place] Improved to 45-50% November 2020 Last Assessment & Plan: The patient's LVEF has recovered with catheter directed medical therapy and 25% of the time of his [place] to 40-50% in November 2020. He has [...] 03/02/2025 Telephone Gastroenterology - [address] [place] [phone] Laureen King [place] Results 03/01/2025 12:45 PM EDT Anesthesia Event [facility] Endoscopy [address] [place] [phone] Courtney Wade MD Pierce, Trudy A, CRNA 03/01/2025 12:13 PM EDT - 03/01/2025 11:59 PM EDT Hospital Encounter [facility] Endoscopy [address] [place] [phone] Aakash Prater MD Freeman, Katharine O, MD Hx of colonic polyps Discharge Disposition: Home or Self Care 01/13/2025 Telephone Gastroenterology - [address] [place] [phone] Aakash Prater MD Special Procedure 12/29/2024 8:30 AM EST Ancillary Procedure [facility] - [address] [place] [phone] from Last 3 Months Surgical History Surgery Date Site/Laterality Comments PROSTATECTOMY CORONARY ANGIOPLASTY WITH STENT PLACEMENT Medical History Medical History Date Comments Diabetes mellitus ([facility] V24, [facility] V28) Hypertension Hyperlipidemia CAD (coronary artery disease) STEMI (ST elevation myocardi al infarction) ([facility] V24, [facility] V28) ONE HEART STENT Family History Medical History [...] age to complete this topic Meningococcal B Vaccine Aged Out No l onger eligible based on patient's age to complete [...] 10:57 AM EST Coronary artery disease involving [place] coronary artery of [place] heart without angina pectoris Ischemic cardiomyopathy HFrEF (heart failure with reduced ejection fraction) (CMS/HCC V24, CMS/HCC V28) BASIC METABOLIC PANEL Routine 10/26/2024 2:04 PM EST from Last 3 Months or Most Recently Relevant to Health Maintenance Results * COLONOSCOPY Anesthesia - MAC; [facility] ENDOSCOPY (03/01/2025 1:10 PM EDT) [...] for surveillance. Narrative 03/01/2025 1:13 PM EDT [facility] GI Patient Name: Armando Martinez Procedure Date: [...] Procedure Code(s): ? --- Professional --- ? 66450, Colonoscopy, flexible; with removal of ? tumor(s), polyp(s), or other lesion(s) by snare ? technique Diagnosis Code(s): ? --- Professional --- ? Z86.010, Personal history of colonic polyps ? D12.0, Benign neoplasm of cecum CPT copyright 2020 [employer]. All rights reserved. The codes documented in this report are preliminary and upon college sports assistant review may be revised to meet current compliance requirements. MD Aakash Kenney MD 03/01/2025 1:13:38 PM This report has been signed electronically.Aakash Prater MD Number of Addenda: 0 Note Initiated On: 03/01/2025 12:44 PM Scope In: Scope Out: ? Endoscopy Department at [facility] - [address] [place] [address], ? [place] [address] Procedure Note Aakash Prater MD - 03/01/2025 [facility] GI Patient Name: Armando Martinez Procedure Date: [...] left colon. Procedure Code(s): --- Professional --- 27696, Colonoscopy, flexible; with removal of tumor(s), polyp(s), or other lesion(s) by snare technique Diagnosis Code(s): --- Professional --- Z86.010, Personal history of colonic polyps D12.0, Benign neoplasm of cecum CPT copyright 2020 [employer]. All rights reserved. The codes documented in this report are preliminary and upon college sports assistant reviewmay be revised to meet current compliance requirements. MD Aakash Kenney MD 03/01/2025 1:13:38 PM This report has been signed electronically.Aakash Prater MD Number of Addenda: 0 Note Initiated On: 03/01/2025 12:44 PM Scope In: Scope Out: Endoscopy Department at [facility] - [address] [place] [phone] IMPRESSION: - Preparation of the colon was [...] results. - Repeat colonoscopy in 9 months forsurveillance. Aakash Prater MD GI~PROCEDURE ORDERABLES Final R esult * Tissue exam (03/01/2025 1:04 PM EDT) Final Diagnosis Colon, cecal polyp: Tubular adenoma 03/02/2025 10:[address] [facility] Gross Description A. Large Intestine, Cecum, polyp: Labeled colon cecum polyp . Received in formalin are three irregular morrell mucosal tissue fragments, ranging from 0.1 cm to 0.6 cm in greatest dimension, which are wrapped in paper and submitted in toto in one cassette, three pieces, multiple levels on one slide. SHARON 03/02/2025 10:[address] [facility] Disclaimer Unless otherwise specified, all tissue is 10% NB formalin fixed and paraffin embedded. 03/02/2025 10:49 AM EDT [facility] Tissue Cecum structure / Unknown 03/01/2025 1:04 PM EDT 03/01/2025 2:51 PM EDT Aakash Prater MD LAB PATHOLOGY ORDERABLES Final Result [facility] [address] [place] [address], [place] [phone] * NM LEXISCAN STRESS TEST (REST ONLY) [...] AM EST Performed at: ??01 - [facility] [address] ??[id number] Architecture Analyst: Vikki Quiros MD, Phone: ??[phone] Nasim Dean MD LAB BLOOD ORDERABLES Kira l Result [facility] 1 from Last 3 Months or Most Recently Relevant to Health Maintenance Insurance [place]ICAID - [place] UNITED [employer] MEDICARE Care Teams Boat Canvas Installer Relationship Specialty Start Date End Date Delroy Haile MD [address] [place] [address] Dr Ebonie [place] PCP - General 03/28/23
== END 2025-03-16 13:07 | disposition home or self-care (01) ==
LOC: HO.ENCR 12:26
PROVIDERS: PCP Physician Assistant; Visit Provider Registered Nurse Diabetes Educator
DX: E11.9 Type 2 diabetes mellitus without complications (principal)

== ENCOUNTER → 2025-03-16 12:26 | Outpatient (BNVA) | payer MEDICARE, SELFPAY | PROVIDERS: PCP Physician Assistant; Visit Provider Registered Nurse Diabetes Educator | DX: E11.9 Type 2 diabetes mellitus without complications (principal); Z79.4 Long term (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; Z79.84 Long term (current) use of oral hypoglycemic drugs | CPT/HCPCS: 99211 ==

== ENCOUNTER 2025-03-23 12:56 | Outpatient (AMB) | payer MEDICARE, SELFPAY ==
[2025-03-23 13:10] VITALS: BMI 28.1
--- NOTE | 2025-03-23 13:10 | A.OFFVIS_ITS ---
VS Expanded 03/23/25 13:10 Height 5 ft 6.5 in Weight 176 lb 9.444 oz BMI 28.1 Intake Visit Reasons: T2DM Allergies No Known Allergies Allergy (Verified 02/23/25 11:28) Nutrition Presentation Details: Pt presents for MNT for T2DM Food frequency fish : not including fruits: 0-1/d yogurt: 0-1/d physical activity : sedentary but will start yard work typical meal B: raisin bran cereal , milk 2% 3pm : Citizen [place] meal (rice/chicken 6-7 pm : sandw or burger, water, juice BS Monitoring Most Recent Diabetes Results: Microalb/Creat Ratio TNP 03/08/25 Cholesterol 125 mg/dL (<200) 03/08/25 HDL Cholesterol 62 mg/dL (>40) 03/08/25 Triglycerides 38 mg/dL (<150) 03/08/25 Creatinine 1.24 mg/dL (0.5-1.4) 03/08/25 Blood Urea Nitrogen 27 mg/dL (9-16) H 03/08/25 Sodium 141 mmol/L (135-145) 03/08/25 Potassium 4.3 mmol/L (3.3-5.1) 03/08/25 Chloride 110 mmol/L (96-108) H 03/08/25 Carbon Dioxide 26 mmol/L (22-29) 03/08/25 Calcium 9.2 mg/dL (8.4-10.2) 03/08/25 AST 20 U/L (5-37) 03/08/25 ALT 26 U/L (0-40) 03/08/25 Total Protein 7.2 g/dL (6.5-8.0) 03/08/25 Albumin 4.1 g/dL (3.5-5.0) 03/08/25 BTB-Khugcmn-Cg.Jeor Equation Height: 5 ft 6.5 in Weight: 177 lb Resting Metabolic Rate: 1552.78 Calculated Activity Level: Sedentary Calories Needed to Maintain Weight: 1863.34 Diagnosis Nutrition problem #1: altered nutrition labs As related to (etiology) #1: diagnosis As evidenced by (sign/symptom) #1: knowledge deficit of diet [facility] Medical History (Updated 02/23/25 @ 12:18 by Delroy Haile MD) Adenoma of both adrenal glands Surgical History Hx of prostatectomy Hx of colonoscopy Family History Mother Depression Father No problems noted. Maternal Grandfather Diabetes mellitus Maternal Grandmother Diabetes mellitus Other FH: mental illness Substance abuse Social History Housing: House Alcohol intake: current Patient Tobacco Use Status: Former Tobacco user Tobacco use type: Cigarette Cigarettes Per Day: 15 e-Cigarette/Vaping Use: Never Used Second Hand Smoke Exposure: No service: No Current occupational status: retired and disabled Current occupational exposures/hazards: No Hearing needs: No Vision needs: No Assessment & Plan Assessment & Plan (1) Insulin dependent type 2 diabetes mellitus: Code(s): E11.9 - Type 2 diabetes mellitus without complications; Z79.4 - intermediate project manager (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 Category: Medical Plan: Wt: 80 Kg ( 03/26 ) Est kcal needs as per MSJ: 2941-7700 (40% carb, 30% prote in/fat) Est fluid needs as per 25-30 ml/d: 2400 Est prot per day as per 1 g/kg bw: 80 Recommend fiber intake : 8-10 g per day and gradually increase to 25-28 g per day for women and 35-38 g for men or as tolerated Recommend sodium intake per day : less than 1500 mg less than 2000 mg Educated patient on: ( R = reviewed V = verbalizes understanding N/R = needs review N/A = not applicable * Food sources of carbohydrate, adequate serving sizes and its role in various health conditions: R * Differences between complex carbohydrates a simple carbohydrates, role of fiber in diet: R * Lean protein sources of foods: R * Differences between types of fats and role in diet (mono on saturated fat fatty acids, saturated fatty acids, trans fats): R V N/R * Food sources of sodium in salt and healthy modifications for heart health in kidney health: R V R/V * Vitamins and minerals: R V N/R * Healthy plate method concept: R * Physical activity: Benefits a precaution: R V N/R * Hypoglycemia protocol (rule of 15): R V N/R * Dietary prevention of Hyperglycemia: R Patient Instructions: Switch to low sugar cereals (honey nut cheerios as example) Have tuna fish with celery, lettuce tomato and lightly o n whitney on whole wheat bread at least twice a week Coding Level of Care Code Nutr Indiv Intake (48144) Diagnoses Insulin dependent type 2 diabetes mellitus E11.9; Z79.4 Time Spent (min) 30
[2025-03-23 13:37] VITALS: BMI 28.1
--- OUTSIDE RECORDS SUMMARY | 2025-03-23 15:19 | XMS_ITS | Clinical Summary ---
Author Organization [employer] Address [address] [facility] 7[address] [place] [address] Care Team Providers Care Missing Persons Investigator Name Role Phone Unavailable Primary Care Provider [...] patient's age to complete this topic Insurance [facility] [address] [place] [id number] [address] STANDARD * Guarantor: Armando Martinez Account Type Relation to Patient Date of Phone Billing Address Personal/Family Self [address] [place] Care Teams Missing Persons Investigator Relationship Specialty Start Date End Date Delroy Haile [address] [place] [address] [place] [address] Primary Care Provider 09/30/23
--- OUTSIDE RECORDS SUMMARY | 2025-03-23 15:19 | XMS_ITS | Clinical Summary ---
Author Organization [facility] Address [address] [place] [address] Phone Care Team Providers Care Soda Drier Feeder Name Role Phone Delroy Haile MD Primary Care Provider +- [phone] Allergies No known active allergies Medications metFORMIN [...] total) by mouth. at bedtime. 5 Active empagliflozin (Jardiance) 10 mg tablet Take 1 tablet (10 mg total) by mouth 1 (one) time each day. 90 tablet 2 5 Active empagliflozin (Jardiance) 10 mg tablet Take 1 tablet (10 mg total) by mouth 1 (one) time each day. 03/23/20 25 Discontinu ed(Reorder ) Active Problems Problem Noted Date Diagnosed Date Coronary artery disease invo lving [place] coronary artery of [place] heart without angina pectoris 06/14/2021 Overview (10/21/2024): [...] EF 25% at the time of his [place] Improved to 45-50% November 2020 Last Assessment & Plan: The patient's LVEF has recovered with catheter directed medical therapy and 25% of the time of his [place] to 40-50% in November 2020. He has [...] [address] [place] [phone] Laureen King [place] Results 03/01/2025 12:45 PM EDT Anesthesia Event [facility] Endoscopy [address] [place] [phone] Courtney Wade MD Pierce, Trudy A, CRNA 03/01/2025 12:13 PM EDT - 03/01/2025 11:59 PM EDT Hospital Encounter [facility] Endoscopy [address] [place] [phone] Aakash Prater MD Freeman, Katharine O, MD Hx of colonic polyps Discharge Disposition: Home or Self Care 01/13/2025 Telephone Gastroenterology - [address] [facility] [address] [place] [phone] Aakash Prater MD Special Procedure 12/29/2024 8:30 AM EST Ancillary Procedure [facility] - [address] [place] [phone] from Last 3 Months Surgical History Surgery Date Site/Laterality Comments PROSTATECTOMY CORONARY ANGIOPLASTY WITH STENT PLACEMENT Medical History Medical History Date Comments Diabetes mellitus ([facility] V24, [facility] V28) Hypertension Hyperlipidemia CAD (coronary artery disease) STEMI (ST elevation myocardi al infarction) ([facility] V24, [facility] V28) ONE HEART STENT Family History Medical [...] 10:57 AM EST Coronary artery disease involving [place] coronary artery of [place] heart without angina pectoris Ischemic cardiomyopathy HFrEF (heart failure with reduced ejection fraction) (CMS/HCC V24, CMS/HCC V28) BASIC METABOLIC PANEL Routine 10/26/2024 2:04 PM EST from Last 3 Months or Most Recently Relevant to Health Maintenance Results * COLONOSCOPY Anesthesia - MAC; [facility] ENDOSCOPY (03/01/2025 1:10 PM EDT) [...] for surveillance. Narrative 03/01/2025 1:[address] [facility] GI Patient Name: Armando Martinez Procedure Date: 03/01/2025 12:44 PM Date of : 1960 Age: 64 Room: ROOM 15 Gender: Male Note Status: Finalized Attending MD: Aakash Prater MD, Procedure Date No Time: 03/01/2025 Procedure: ? Colonoscopy Indications: ? High risk colon cancer surveillance: Personal history ? of colonic polyps Providers: ? Aakash Prater MD Referring MD: ?Aakash Praetr MD Medicines: ? Monitored Anesthesia Care Complications: [...] Procedure Code(s): ? --- Professional --- ? 24675, Colonoscopy, flexible; with removal of ? tumor(s), polyp(s), or other lesion(s) by snare ? technique Diagnosis Code(s): ? --- Professional --- ? Z86.010, Personal history of colonic polyps ? D12.0, Benign neoplasm of cecum CPT copyright 202 [employer]. All rights reserved. The codes documented in this report are preliminary and upon bilingual spanish inbound sales review may be revised to meet current compliance requirements. MD Aakash Kenney MD 03/01/2025 1:13:38 PM This report has been signed electronically.Aakash Prater MD Number of Addenda: 0 Note Initiated On: 03/01/2025 12:44 PM Scope In: Scope Out: ? Endoscopy Department at [facility] - [address] [place] [address], ? [place] [address] Procedure Note Aakash Prater MD - 03/01/2025 [facility] GI Patient Name: Armando Martinez Procedure [...] left colon. Procedure Code(s): --- Professional --- 57503, Colonoscopy, flexible; with removal of tumor(s), polyp(s), or other lesion(s) by snare technique Diagnosis Code(s): --- Professional --- Z86.010, Personal history of colonic polyps D12.0, Benign neoplasm of cecum CPT copyright 2020 [employer]. All rights reserved. The codes documented in this report are preliminary and upon bilingual spanish inbound sales reviewmay be revised to meet current compliance requirements. MD Aakash Kenney MD 03/01/2025 1:13:38 PM This report has been signed electronically.Aakash Prater MD Number of Addenda: 0 Note Initiated On: 03/01/2025 12:44 PM Scope In: Scope Out: Endoscopy Department at [facility] - [address] [place] [phone] IMPRESSION: - Preparation of the colon was [...] polyp: Tubular adenoma 03/02/2025 10:49 AM EDT [facility] Gross Description A. Large Intestine, Cecum, polyp: Labeled colon cecum polyp . Received in formalin are three irregular morrell mucosal tissue fragments, ranging from 0.1 cm to 0.6 cm in greatest dimension, which are wrapped in paper and submitted in toto in one cassette, three pieces, multiple levels on one slide. SHARON 03/02/2025 10:49 AM EDT [facility] Disclaimer Unless otherwise specified, all tissue is 10% NB formalin fixed and paraffin embedded. 03/02/2025 10:49 AM EDT [facility] Tissue Cecum structure / Unknown 03/01/2025 1:04 PM EDT 03/01/2025 2:51 PM EDT Aakash Prater MD LAB PATHOLOGY ORDERABLES Final Result [facility] [address] [place] [address], [place] [phone] * [place] LEXISCAN STRESS TEST (REST ONLY) [...] AM EST Performed at: ??01 - [facility] [address] ??[id number] Electroneurodiagnostic Technician: Vikki Quiros MD, Phone: ??[phone] us Nsaim Dean MD LAB BLOOD ORDERABLES Kira constance Result [facility] 1 from Last 3 Months or Most Recently Relevant to Health Maintenance Insurance [place] - [place] UNITED HE[employer]ARE MEDICARE Care Teams Soda Drier Feeder Relationship Specialty Start Date End Date Delroy Haile MD [address] [place] [address] Dr Ebonie [place] PCP - General 03/28/23
== END 2025-03-23 13:39 | disposition home or self-care (01) ==
LOC: HO.ENCR 12:57
PROVIDERS: PCP Family Medicine; Visit Provider Dietitian, Registered
DX: E11.9 Type 2 diabetes mellitus without complications (principal); Z79.4 Long term (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

== ENCOUNTER → 2025-03-23 12:56 | Outpatient (BNVA) | payer MEDICARE, SELFPAY | PROVIDERS: PCP Family Medicine; Visit Provider Dietitian, Registered | DX: E11.9 Type 2 diabetes mellitus without complications (principal); Z79.4 Long term (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 | CPT/HCPCS: 97802 ==

== ENCOUNTER 2025-05-04 14:09 | Outpatient (AMB) | payer MEDICARE, SELFPAY ==
--- NOTE | 2025-05-04 14:22 | MHC.AMNUTRGE ---
VS Expanded 05/04/25 14:23 Height 5 ft 6.5 in Weight 167 lb 5.294 oz BMI 26.6 Intake Visit Reasons: T2DM Allergies No Known Allergies Allergy (Verified 02/23/25 11:28) Nutrition Presentation Details: Pt presents for MNT f/u for T2DM Pt reports working on diet modifications , reducing sugars from ice cream /desserts Tends to skip breakfast L: has tuna sand and orange juice dinner chicken or pork chop and rice and vegetable, whole milk snack: fruit or wanda milk or ice cream or crackers with peanut butter reports walking daily, keeping physically active reports having constipation , lack of bowel movement for 3-4 days , reports having f/u with television antenna installer and conlonoscopy HAs questions on how to use the glucose sensor - brought a sensor today and sensor's needle tip is broken , Pt reports he is unsure how this happened. An appt was made with [facility] for sensor teaching BS Monitoring Most Recent Diabetes Results: Microalb/Creat Ratio TNP 03/08/25 Cholesterol 125 mg/dL (<200) 03/08/25 HDL Cholesterol 62 mg/dL (>40) 03/08/25 Triglycerides 38 mg/dL (<150) 03/08/25 Creatinine 1.24 mg/dL (0.5-1.4) 03/08/25 Blood Urea Nitrogen 27 mg/dL (9-16) H 03/08/25 Sodium 141 mmol/L (135-145) 03/08/25 Potassium 4.3 mmol/L (3.3-5.1) 03/08/25 Chloride 110 mmol/L (96-108) H 03/08/25 Carbon Dioxide 26 mmol/L (22-29) 03/08/25 Calcium 9.2 mg/dL (8.4-10.2) 03/08/25 AST 20 U/L (5-37) 03/08/25 ALT 26 U/L (0-40) 03/08/25 Total Protein 7.2 g/dL (6.5-8.0) 03/08/25 Albumin 4.1 g/dL (3.5-5.0) 03/08/25 [facility] Medical History (Updated 02/23/25 @ 12:18 by Delroy Haile MD) Adenoma of both adrenal glands Surgical History Hx of prostatectomy Hx of colonoscopy Family History Mother Depression Father No problems noted. Maternal Grandfather Diabetes mellitus Maternal Grandmother Diabetes mellitus Other FH: mental illness Substance abuse Social History Housing: House Alcohol intake: current Patient Tobacco Use Status: Former Tobacco user Tobacco use type: Cigarette Cigarettes Per Day: 15 e-Cigarette/Vaping Use: Never Used Second Hand Smoke Exposure: No service: No Current occupational status: retired and disabled Current occupational exposures/hazards: No Hearing needs: No Vision needs: No Assessment & Plan Assessment & Plan (1) Insulin dependent type 2 diabetes mellitus: Code(s): E11.9 - Type 2 diabetes mellitus without complications; Z79.4 - [facility] (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 Category: Medical Plan: Wt: 80 Kg ( 03/26 ), 75.6 kg (05/26) Est kcal needs as per MSJ: 2448-9373 (40% carb, 30% protein/fat) Est fluid needs as per 25-30 ml/d: 2400 Est prot per day as per 1 g/kg bw: 80 Recommend fiber intake : 8-10 g per day and gradually increase to 25-28 g per day for women and 35-38 g for men or as tolerated Recommend sodium intake per day : less than 1500 mg less than 2000 mg Educated patient on: ( R = reviewed V = verbalizes understanding N/R = needs review N/A = not applicable Food sources of carbohydrate, adequate serving sizes and its role in various health conditions: R Differences between complex carbohydrates a simple carbohydrates, role of fiber in diet: R Lean protein sources of foods: R Differences between types of fats and role in diet (mono on saturated fat fatty acids, saturated fatty acids, trans fats): R V N/R Food sources of sodium in salt and healthy modifications for heart health in kidney health: R V R/V Vitamins and minerals: R V N/R Healthy plate method concept: R Physical activity: Benefits a precaution: R Hypoglycemia protocol (rule of 15): R V N/R Dietary prevention of Hyperglycemia: R Patient Instructions: Include 4-6 oz of prune juice daily at breakfast and have oatmeal twice a week as breakfast instead of skipping Keep hydrated by having water with meals, at least 6-8 oz water with each meal and in between meals Choose fruits/vegetable as part of your meal Continue appt with your doctors regarding constipation Coding Level of Care Code Nutr Indiv Subseq (33845) Diagnoses Insulin dependent type 2 diabetes mellitus E11.9; Z79.4 Time Spent (min) 30
[2025-05-04 14:23] VITALS: BMI 26.6
--- OUTSIDE RECORDS SUMMARY | 2025-05-04 15:59 | XMS_ITS | Clinical Summary ---
Author Organization [facility] Address [address] [place] [address] Phone Care Team Providers Care Straight Knife Cutter Machine Name Role Phone Delroy Haile MD Primary Care Provider +- [phone] Allergies No known active allergies Medications metFORMIN [...] (one) time each day. 09/30/2024 Active lactobacillus acidoph-l.bulga r 100 million cell granules in packet Take 1 packet by mouth 1 (one) time each day. Active multivitamin tablet Take 1 tablet by mouth 1 (one) time each day. Active spironolactone (ALDACTONE) 25 mg tablet Take 0.5 tablets (12.5 mg total) by mouth 1 (one) time each day. 45 tablet 2 02/12/2025 Active OLANZapine (ZyPREXA) 2.5 mg tablet Take 1 tablet (2.5 mg total) by mouth. at bedtime. 02/23/2025 Active empagliflozin (Jardiance) 10 mg tablet Take 1 tablet (10 mg total) by mouth 1 (one) time each day. 90 tablet 2 03/23/2025 Active Active Problems Problem Noted Date Diagnosed Date Coronary artery disease invo lving [place] coronary artery of [place] heart without angina pectoris 06/14/2021 Overview (10/21/2024): [...] EF 25% at the time of his OR Improved to 45-50% November 2020 Last Assessment & Plan: The patient's LVEF has recovered with catheter directed medical therapy and 25% of the time of his OR to 40-50% in November 2020. He has [...] Encounters Date Type Department Care Team Description 04/12/2025 Telephone Gastroenterology - [address] [facility] [address] [place] [phone] Aakash Prater MD Bloated 03/02/2025 Telephone Gastroenterology - [address] [place] [phone] Laureen King [place] Results 03/01/2025 12:45 PM EDT Anesthesia Event [facility] [address] [place] [phone] Courtney Wade MD Pierce, Trudy A, CRNA 03/01/2025 12:13 PM EDT - 03/01/2025 11:59 PM EDT Hospital Encounter [facility] [address] [place] [phone] Aakash Prater MD Freeman, Katharine O, MD Hx of colonic polyps Discharge Disposition: Home or Self Care from Last 3 Months Surgical History Surgery Date Site/Laterality Comments PROSTATECTOMY CORONARY ANGIOPLASTY WITH STENT PLACEMENT Medical History Medical History Date Comments Diabetes mellitus ([facility] V24, [facility] V28) Hypertension Hyperlipidemia CAD (coronary artery disease) STEMI (ST elevation myocardi al infarction) ([facility] V24, [facility] V28) ONE HEART STENT [...] 1:04 PM EDT Hx of colonic polyps BASIC METABOLIC PANEL Routine 10/26/2024 2:04 PM EST from Last 3 Months or Most Recently Relevant to Health Maintenance Results * COLONOSCOPY Anesthesia - MAC; [facility] ENDOSCOPY (03/01/2025 1:10 PM [...] for surveillance. Narrative 03/01/2025 1:13 PM EDT [facility] Patient Name: Armando Martinez Procedure Date: [...] Procedure Code(s): ? --- Professional --- ? 91210, Colonoscopy, flexible; with removal of ? tumor(s), polyp(s), or other lesion(s) by snare ? technique Diagnosis Code(s): ? --- Professional --- ? Z86.010, Personal history of colonic polyps ? D12.0, Benign neoplasm of cecum CPT copyright 2020 [employer]. All rights reserved. The codes documented in this report are preliminary and upon seed cleaner operator review may be revised to meet current compliance requirements. MD Aakash Kenney MD 03/01/2025 1:13:38 PM This report has been signed electronically.Aakash Prater MD Number of Addenda: 0 Note Initiated On: 03/01/2025 12:44 PM Scope In: Scope Out: ? Endoscopy Department at [facility] - [address] [place] [address], ? [place] [address] Procedure Note Aakash Prater MD - 03/01/2025 [facility] Patient Name: Armando Martinez Procedure Date: [...] left colon. Procedure Code(s): --- Professional --- 48808, Colonoscopy, flexible; with removal of tumor(s), polyp(s), or other lesion(s) by snare technique Diagnosis Code(s): --- Professional --- Z86.010, Personal history of colonic polyps D12.0, Benign neoplasm of cecum CPT copyright 2020 [employer]. All rights reserved. The codes documented in this report are preliminary and upon seed cleaner operator reviewmay be revised to meet current compliance requirements. MD Aakash Kenney MD 03/01/2025 1:13:38 PM This report has been signed electronically.Aakash Prater MD Number of Addenda: 0 Note Initiated On: 03/01/2025 12:44 PM Scope In: Scope Out: Endoscopy Department at [facility] - [address] [place] [phone] IMPRESSION: - Preparation of the colon was [...] - Repeat colonoscopy in 9 months forsurveillance. us Aakash Prater MD GI~PROCEDURE ORDERABLES Final R esult * Tissue exam (03/01/2025 1:04 PM EDT) Final Diagnosis Colon, cecal polyp: Tubular adenoma 03/02/2025 10:49 AM EDT [facility] Gross Description A. Large Intestine, Cecum, polyp: Labeled colon cecum polyp . Received in formalin are three irregular morrell mucosal tissue fragments, ranging from 0.1 cm to 0.6 cm in greatest dimension, which are wrapped in paper and submitted in toto in one cassette, three pieces, multiple levels on one slide. SHARON 03/02/2025 10:49 AM EDT [facility] Disclaimer Unless otherwise specified, all tissue is 10% NB formalin fixed and paraffin embedded. 03/02/2025 10:49 AM EDT [facility] Tissue Cecum structure / Unknown 03/01/2025 1:04 PM EDT 03/01/2025 2:51 PM EDT us Aakash Prater MD LAB PATHOLOGY ORDERABLES Final Result [facility] [address] [place] [address], * (ABNORMAL) Basic metabolic panel (10/26/2024 2:04 [...] AM EST Performed at: ??01 - [facility] [address] ??[id number] Aircraft Steel Fabricator: Vikki Quiros MD, Phone: ??[phone] Nasim Dean MD LAB BLOOD ORDERABLES Kira nolasco Result [facility] 1 from Last 3 Months or Most Recently Relevant to Health Maintenance Insurance [place]ICAID - [place] [employer] MEDICARE Care Teams Straight Knife Cutter Machine Relationship Specialty Start Date End Date Delroy Haile MD [address] [place] [address] Dr Ebonie [place] PCP - General 03/28/23
== END 2025-05-04 14:53 | disposition home or self-care (01) ==
LOC: HO.ENCR 14:11
PROVIDERS: PCP Family Medicine; Visit Provider Dietitian, Registered
DX: E11.9 Type 2 diabetes mellitus without complications (principal); Z79.4 Long term (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

== ENCOUNTER → 2025-05-04 14:09 | Outpatient (BNVA) | payer MEDICARE, SELFPAY | PROVIDERS: PCP Family Medicine; Visit Provider Dietitian, Registered | DX: E11.9 Type 2 diabetes mellitus without complications (principal); Z79.4 Long term (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 | CPT/HCPCS: 97803 ==

== ENCOUNTER 2025-05-28 11:18 | Outpatient (AMB) | payer MEDICARE, SELFPAY ==
--- NOTE | 2025-05-28 11:29 | MHC.PC.OV ---
Vital Signs 05/28/25 11:38 Height 5 ft 6.5 in Weight 168 lb BMI 26.7 BP 102/68 Blood Pressure Location Lt brachial Position Sitting Respiration 12 Pulse 89 Pulse Source Pulse Oximeter Temp 98.6 F Temp Source Temporal Artery Scan Pulse Oximetry (%) 97 Oxygen Delivery Method Room Air Intake Visit Reasons: f/u diabetes, chronic conditions - see comments Intake Note: Armando presents in the office today for diabetic check in and other chronic conditions. Allergies No Known Allergies Allergy (Verified 05/28/25 11:34) Tobacco use date assessed: 05/28/25 Dental Screening Dental Screen Date: 05/28/25 Did you have a dental visit in the last 12 months?: Yes Did you have a dental problem in the last 6 months where you did not have access to dental care?: No Was dental information given to patient?: Patient has dentist HPI f/u diabetes, chronic conditions - see comments HPI Details 64 y/o male presents to f/u diabetes, chronic conditions. A1c today improved to 6.4%. He is on Lantus 20 units, Jardiance 10mg, metformin 1000mg daily. BP today 102/68, 89p. He is on spironolactone 12.5mg, losartan 25mg and metoprolol 100mg daily. He notes he has lost about 10 lbs. Ongoing complaints of dry skin. HPI Comments History of Present Illness Details Documentation assistance for Delroy Haile MD, was provided by Andrade Zepeda,? Oil Rigger on 05/28/2025 at 12:22 PM EST. I, Dr. Haile, have read, observed, and verified documentation. ?? PFSH Medical History (Updated 02/23/25 @ 12:18 by Delroy Haile MD) Adenoma of both adrenal glands Surgical History Hx of prostatectomy Hx of colonoscopy Family History Mother Depression Father No problems noted. Maternal Grandfather Diabetes mellitus Maternal Grandmother Diabetes mellitus Other FH: mental illness Substance abuse Social History (Updated 05/28/25 @ 11:30 by Cici Hurtado MA) Housing: House Alcohol intake: current Patient Tobacco Use Status: Former Tobacco user Tobacco use type: Cigarette Cigarettes Per Day: 15 e-Cigarette/Vaping Use: Never Used Second Hand Smoke Exposure: No service: No Current occupational status: retired and disabled Current occupational exposures/hazards: No Hearing needs: No Vision needs: No Questionnaire Thrive Questionnaire Date Thrive assessed: 12/28/24 I am a: Patient What is your living situation today?: I have a steady place to live Within the past 12 months, did the food you bought not last and you didn't have the money to get more?: Sometimes True Within the past 12 months, did you worry whether your food would run out before you got money to buy more?: Never true Do you have trouble paying for medicines?: No Do you have trouble getting transportation to medical appointments?: No Do you have trouble paying your heating and electricity bill?: No Do you have trouble taking care of your child, family member or friend?: No Do you have trouble with day-to-day activities such as bathing, preparing meals, shopping, managing finances, etc.?: No Are you currently unemployed and looking for a job?: I choose not to answer this question Are you interested in more education?: No Currently or been in a relationship where the following occur: Controlled Emotionally THRIVE Score: 2 DOROTEO-7 AMB Questionnaire DOROTEO-7 Date DOROTEO - 7 assessed: 12/31/24 Source: Developed by Drs. Escobar Nelson, Anna Malik, Franck Bergman and colleagues, with an educational francesca from [employer]. Physical exam (Primary Care) Vital Signs: Last Vital Signs Temp 98.6 F 05/28/25 11:38 Pulse 89 05/28/25 11:38 Resp 12 05/28/25 11:38 BP 102/68 05/28/25 11:38 Pulse Ox 97 05/28/25 11:38 Oxygen Delivery Method Room Air 05/28/25 11:38 BMI result Body Mass Index 26.7 Tobacco/Smoking Status: Tobacco use Status Tobacco use date assessed 05/28/25 05/28/25 11:30 Patient Tobacco Use Status Former Tobacco user 05/28/25 11:30 Tobacco use type Cigarette 05/28/25 11:30 e-Cigarette/Vaping Use Never Used 05/28/25 11:30 Thrive Assessment: Date of Thrive Assessment Date Thrive assessed 12/28/24 05/28/25 11:30 Currently or been in a relationship where the following occur: Controlled Emotionally Results AMB Hemoglobin A1c AMB Hemoglobin A1c 6.4 % Last Edit by Cici Hurtado MA on 05/28/25 11:55 Results Reviewed Results Reviewed: Laboratory Last Values Hgb A1c (Clinic) 6.4 % (4.0-6.0) H 05/28/25 11:45 Coding Level of Care Code Est Pt Level 4 (05235) Diagnoses Controlled type 2 diabetes mellitus E11.9 Hypertension due to endocrine disorder I15.2 Hypertension type: secondary to endocrine disorders Coronary artery disease I25.10 Dry skin L85.3 Assessment & Plan Assessment & Plan (1) Controlled type 2 diabetes mellitus: Code(s): E11.9 - Type 2 diabetes mellitus without complications Category: Medical Plan: A1c?6.4%.??Good?control.??Goal?is?less?than?7.0% Continue?current?medication Congratulated?patient?on?weight?loss Continue?diabetic?diet (2) Hypertension: Code(s): I10 - Essential (primary) hypertension Category: Medical Qualifiers: Hypertension type: secondary to endocrine disorders Qualified Code(s): I15.2 - Hypertension secondary to endocrine disorders Plan: Blood?pressure?controlled?but?a?little?low.??Goal?is?less?than?130/80 Continue?metoprolol?and?spironolactone. 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
[2025-05-28 11:38] VITALS: BP 102/68; PULSE 89; RESP 12; TEMP 37; O2SAT 97; BMI 26.7
--- OUTSIDE RECORDS SUMMARY | 2025-05-28 12:28 | XMS_ITS | Clinical Summary ---
Author Organization [facility] Address [address] [place] [address] Phone Care Team Providers Care Line Operator Name Role Phone Delroy Haile MD Primary Care Provider +- [phone] Allergies No known active allergies Medications metFORMIN [...] Diagnosed Date Coronary artery disease invo lving [place] coronary artery of [place] heart without angina pectoris 06/14/2021 Overview (10/21/2024): [...] EF 25% at the time of his MD Improved to 45-50% November 2020 Last Assessment & Plan: The patient's LVEF has recovered with catheter directed medical therapy and 25% of the time of his MD to 40-50% in November 2020. He has [...] 04/12/2025 Telephone Gastroenterology - [address] [facility] [address] [facility] [address] [place] [phone] Aakash Prater MD Bloated 03/02/2025 Telephone Gastroenterology - [address] [place] [phone] Laureen King MA Results 03/01/2025 12:45 PM EDT Anesthesia Event [facility] [address] [place] [phone] Courtney Wade MD Pierce, Trudy A, CRNA 03/01/2025 12:13 PM EDT - 03/01/2025 11:59 PM EDT Hospital Encounter [facility] [address] [place] [phone] Aakash Prater MD Freeman, Katharine O, MD Hx of colonic polyps Discharge Disposition: Home or Self Care from Last 3 Months Surgical History Surgery Date Site/Laterality Comments PROSTATECTOMY CORONARY ANGIOPLASTY WITH STENT PLACEMENT Medical History Medical History Date Comments Diabetes mellitus ([facility] V24, [facility] V28) Hypertension Hyperlipidemia CAD (coronary artery disease) STEMI (ST elevation myocardi al infarction) ([facility] V24, [facility] V28) ONE HEART STENT Family History Medical [...] 67 03/01/2025 1:31 PM EDT Temperature 36.1 C (97 F) 03/01/2025 12:31 PM EDT Respiratory Rate 18 [...] Maintenance Results * COLONOSCOPY Anesthesia - MAC; [facility] END[facility]COPY (03/01/2025 1:10 PM EDT) Anatomical [...] of potential delayed complications were discussed with the patient. Return to normal activities tomorrow. Written discharge instructions were provided to the patient. - Resume previous diet. - Continue present medications. - Await pathology results. - Repeat colonoscopy in 9 months for surveillance. Narrative 03/01/2025 1:[address] [facility] Patient Name: Armando Martinez Procedure Date: 03/01/2025 12:44 PM Date of : 1960 Age: 64 Room: ROOM 15 Gender: Male Note Status: Finalized Attending MD: Aakash Prater MD, Procedure Date No Time: 03/01/2025 Procedure: Colonoscopy Indications: High risk colon cancer surveillance: Personal history of colonic polyps Providers: Aakash Prater MD Referring MD: Aakash Prater MD Medicines: Monitored Anesthesia Care Complications: No immediate complications. Estimated Blood Loss: Estimated blood loss was minimal. Procedure: After I obtained informed consent, the scope was passed under direct vision. Throughout the procedure, the patient's blood pressure, pulse, and oxygen [...] piecemeal technique using a cold snare. Resection and retrieval were complete. A few medium-mouthed diverticula were found in the left colon. Procedure Code(s): --- Professional --- 19096, Colonoscopy, flexible; with removal of tumor(s), polyp(s), or other lesion(s) by snare technique Diagnosis Code(s): --- Professional --- Z86.010, Personal history of colonic polyps D12.0, Benign neoplasm of cecum CPT copyright 2020 [employer]. All rights reserved. The codes documented in this report are preliminary and upon drug abuse treatment specialist review may be revised to meet current compliance requirements. MD Aakash Kenney MD 03/01/2025 1:13:38 PM This report has been signed electronically.Aakash Prater MD Number of Addenda: 0 Note Initiated On: 03/01/2025 12:44 PM Scope In: Scope Out: Endoscopy Department at [facility] - [address] [place] [phone] Procedure Note Aakash Prater MD - 03/01/2025 [facility] Patient Name: Armando Martinez Procedure Date: [...] left colon. Procedure Code(s): --- Professional --- 24222, Colonoscopy, flexible; with removal of tumor(s), polyp(s), or other lesion(s) by snare technique Diagnosis Code(s): --- Professional --- Z86.010, Personal history of colonic polyps D12.0, Benign neoplasm of cecum CPT copyright 2021 [employer]. All rights reserved. The codes documented in this report are preliminary and upon drug abuse treatment specialist reviewmay be revised to meet current compliance requirements. MD Aakash Kenney MD 03/01/2025 1:13:38 PM This report has been signed electronically.Aakash Prater MD Number of Addenda: 0 Note Initiated On: 03/01/2025 12:44 PM Scope In: Scope Out: Endoscopy Department at [facility] - [address] [place] [phone] IMPRESSION: - Preparation of the colon was [...] polyp: Tubular adenoma 03/02/2025 10:49 AM EDT [facility] Gross Description A. Large Intestine, Cecum, polyp: Labeled colon cecum polyp . Received in formalin are three irregular morrell mucosal tissue fragments, ranging from 0.1 cm to 0.6 cm in greatest dimension, which are wrapped in paper and submitted in toto in one cassette, three pieces, multiple levels on one slide. SHARON 03/02/2025 10:49 AM EDT [facility] Disclaimer Unless otherwise specified, all tissue is 10% NB formalin fixed and paraffin embedded. 03/02/2025 10:49 AM EDT [facility] Tissue Cecum structure / Unknown 03/01/2025 1:04 PM EDT 03/01/2025 2:51 PM EDT Aakash Prater MD LAB PATHOLOGY ORDERABLES Final Result [facility] [place] ([facility]) [facility] [address] [place] [address], * (ABNORMAL) Basic metabolic panel (10/26/2024 2:04 [...] - 10/27/2024 3:06 AM EST Performed at: 01 - [facility] [address] [id number] Almond Grinder: Vikki Quiros MD, Phone: [phone] Nasim Dean MD LAB BLOOD ORDERABLES Kira l Result [facility] 1 from Last 3 Months or Most Recently Relevant to Health Maintenance Insurance [place]ICAID - [place] [employer] MEDICARE Care Teams Line Operator Relationship Specialty Start Date End Date Delroy Haile MD [address] [place] [address] Dr Ebonie [place] PCP - General 03/28/23
== END 2025-05-28 12:32 | disposition home or self-care (01) ==
LOC: HO.HMCFM 11:19
PROVIDERS: PCP Family Medicine; Visit Provider Family Medicine
DX: E11.9 Type 2 diabetes mellitus without complications (principal); I15.2 Hypertension secondary to endocrine disorders; I25.10 Atherosclerotic heart disease of native coronary artery without angina pectoris; L85.3 Xerosis cutis; Z79.4 Long term (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

== ENCOUNTER → 2025-05-28 11:18 | Outpatient (BNVA) | payer MEDICARE, SELFPAY | PROVIDERS: PCP Family Medicine; Visit Provider Family Medicine | DX: I15.2 Hypertension secondary to endocrine disorders (principal); E11.9 Type 2 diabetes mellitus without complications; I25.10 Atherosclerotic heart disease of native coronary artery without angina pectoris; L85.3 Xerosis cutis; Z87.891 Personal history of nicotine dependence | CPT/HCPCS: 83036; 99212 ==

== ENCOUNTER 2025-06-15 12:55 | Outpatient (AMB) | payer MEDICARE, SELFPAY ==
--- NOTE | 2025-06-15 13:08 | A.OFFVIS_ITS ---
VS Expanded 06/15/25 13:10 Height 5 ft 6.5 in Weight 173 lb 11.588 oz BMI 27.6 Intake Visit Reasons: T2DM Allergies No Known Allergies Allergy (Verified 05/28/25 11:34) Nutrition Presentation Details: Pt presents for MNT f/u for T2DM Most recent A1c 6.4% 05/26. Pt reports doing good, less activity due to hot weather and also increasing on cold desserts, noted weight gain B: bagel with cream cheese, coffee with diet sugar and milk L: fruit or crackers dinner: pasta and chicken bowl of ice cream had stopped smoking in 12/2024 [facility] Medical History (Updated 02/23/25 @ 12:18 by Delroy Haile MD) Adenoma of both adrenal glands Surgical History Hx of prostatectomy Hx of colonoscopy Family History Mother Depression Father No problems noted. Maternal Grandfather Diabetes mellitus Maternal Grandmother Diabetes mellitus Other FH: mental illness Substance abuse Social History (Updated 05/28/25 @ 11:30 by Cici Hurtado MA) Housing: House Alcohol intake: current Patient Tobacco Use Status: Former Tobacco user Tobacco use type: Cigarette Cigarettes Per Day: 15 e-Cigarette/Vaping Use: Never Used Second Hand Smoke Exposure: No service: No Current occupational status: retired and disabled Current occupational exposures/hazards: No Hearing needs: No Vision needs: No Assessment & Plan Assessment & Plan (1) Insulin dependent type 2 diabetes mellitus: Code(s): E11.9 - Type 2 diabetes mellitus without complications; Z79.4 - long-term (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 Category: Medical Plan: Wt: 80 Kg ( 03/26 ), 75.6 kg (05/26), 79 kg(06/25) Est kcal needs as per MSJ: 5358-3039 (40% carb, 30% protein/fat) Est fluid needs as per 25-30 ml/d: 2400 Est prot per day as per 1 g/kg bw: 80 Recommend fiber intake : 8-10 g per day and gradually increase to 25-28 g per day for women and 35-38 g for men or as tolerated Recommend sodium intake per day : less than 1500 mg less than 2000 mg Educated patient on: ( R = reviewed V = verbalizes understanding N/R = needs review N/A = not applicable * Food sources of carbohydrate, adequate serving sizes and its role in various health conditions: R * Differences between complex carbohydrates a simple carbohydrates, role of fiber in diet: R * Lean protein sources of foods: R * Differences between types of fats and role in diet (mono on saturated fat fatty acids, saturated fatty acids, trans fats): R * Food sources of sodium in salt and healthy modifications for heart health in kidney health: R V R/V * Vitamins and minerals: R V N/R * Healthy plate method concept: R * Physical activity: Benefits a precaution: R * Hypoglycemia protocol (rule of 15): R V N/R * Dietary prevention of Hyperglycemia: R Patient Instructions: Walk 30 minutes daily or as able (go to the mall) Switch to yogurt (high protein yogurt as dessert), low sugar desserts (sandw or , outshine yogurt bars) Coding Level of Care Code Nutr Indiv Subseq (04615) Diagnoses Insulin dependent type 2 diabetes mellitus E11.9; Z79.4 Time Spent (min) 30
[2025-06-15 13:10] VITALS: BMI 27.6
--- OUTSIDE RECORDS SUMMARY | 2025-06-15 14:10 | XMS_ITS | Clinical Summary ---
Author Organization [facility] Address [address] [facility] 7 [place] [address] Care Team Providers Care Metal Leaf Layer Name Role Phone Unavailable Primary Care Provider [...] AM EST Pulse - - Temperature 36.2 C (97.1 F) 01/08/2024 10:31 AM EST Respiratory Rate - - Oxygen Saturation - - Inhaled Oxygen Concentration - - Weight - - Height - - Body Mass Index - - Plan of Treatment Health Maintenance Due Date Last Done Comments CT Colonography 1960 Depression Screening 1960 Diabetes: Hemoglobin A1C 1961 FIT DNA/Cologuard 1960 FIT 1960 FOBT 1960 HIV Screening 1960 Lipid Panel 1960 SDOH Screening 1960 Sigmoidoscopy 1960 Disability Screening 1960 Diabetes: Foot Exam 1971 Alcohol/Substance Use [...] (3 - 2023- season) 2024 04/15/2021, 03/25/2021 Eye Exam 01/08/2025 01/08/2024, 0206/2024, 01/08/2024, Additional history exists Influenza Vaccine (#1) 2025 07/07/2017 DTaP/Tdap/Td Vaccines (2 - Td or Tdap) 11/14/2027 11/14/2017 Colonoscopy 10/27/2034 10/27/2024 Colorectal Cancer Screening 10/27/2034 HIB Vaccines Aged Out No longer eligi [...] patient's age to complete this topic Insurance [facility] [address] [place] [id number] Care Teams Metal Leaf Layer Relationship Specialty Start Date End Date Delroy Haile [address] [place] [address] [place] [address] Primary Care Provider 09/30/23
--- OUTSIDE RECORDS SUMMARY | 2025-06-15 14:10 | XMS_ITS | Clinical Summary ---
Author Organization [facility] Address [address] [place] [address] Phone Care Team Providers Care Ore Sampler Name Role Phone Delroy Haile MD Primary Care Provider +- [phone] Allergies No known active allergies Medications metFORMIN [...] Diagnosed Date Coronary artery disease invo lving [place] coronary artery of [place] heart without angina pectoris 06/14/2021 Overview (10/21/2024): [...] EF 25% at the time of his [place] Improved to 45-50% November 2020 Last Assessment & Plan: The patient's LVEF has recovered with catheter directed medical therapy and 25% of the time of his [place] to 40-50% in November 2020. He has [...] 04/12/2025 Telephone Gastroenterology - [address] [place] [address] Aakash Prater MD Bloated from Last 3 Months Surgical History Surgery Date Site/Laterality Comments PROSTATECTOMY CORONARY ANGIOPLASTY WITH STENT PLACEMENT Medical History Medical History Date Comments Diabetes mellitus [place] [place], [facility] V28) Hypertension Hyperlipidemia CAD (coronary artery disease) STEMI (ST elevation myocardi al infarction) ([facility] V24, [facility] V28) ONE HEART STENT Family [...] Contro l Test (HGBA1C) 10/27/2024 Influenza Vaccine (#1) 2025 07/07/2017 Diabetes: Annual GFR (Glomerular Filtration Rate) 10/26/2025 10/26/2024 Hypertension/CHF/CAD Annual BMP Blood Test 10/26/2025 10/26/2024 DTaP,Tdap,and Td Vaccines (2 - Td or Tdap) 11/14/2027 11/14/2017 Colorectal Cancer Screening: Colonoscopy 03/01/2035 03/01/2025, 10/27/2024 HIB Vaccines Aged Out No longer eligi [...] 1:10 PM EDT Hx of colonic polyps BASIC METABOLIC PANEL Routine 10/26/2024 2:04 PM EST from Last 3 Months or Most Recently Relevant to Health Maintenance Results * COLONOSCOPY Anesthesia - MAC; [facility] ENDOSCOPY (03/01/2025 1:10 PM EDT) Anatomical Region [...] surveillance. Narrative 03/01/2025 1:13 PM EDT [facility] GI Patient [...] left colon. Procedure Code(s): --- Professional --- 32049, Colonoscopy, flexible; with removal of tumor(s), polyp(s), or other lesion(s) by snare technique Diagnosis Code(s): --- Professional --- Z86.010, Personal history of colonic polyps D12.0, Benign neoplasm of cecum CPT copyright 2020 [employer]. All rights reserved. The codes documented in this report are preliminary and upon filling separator review may be revised to meet current compliance requirements. MD Aakash Kenney MD 03/01/2025 1:13:38 PM This report has been signed electronically.Aakash Prater MD Number of Addenda: 0 Note Initiated On: 03/01/2025 12:44 PM Scope In: Scope Out: Endoscopy Department at [facility] - [address] [place] [phone] Procedure Note Aakash Prater MD - 03/01/2025 [facility] GI Patient [...] left colon. Procedure Code(s): --- Professional --- 43468, Colonoscopy, flexible; with removal of tumor(s), polyp(s), or other lesion(s) by snare technique Diagnosis Code(s): --- Professional --- Z86.010, Personal history of colonic polyps D12.0, Benign neoplasm of cecum CPT copyright 2020 [employer]. All rights reserved. The codes documented in this report are preliminary and upon filling separator reviewmay be revised to meet current compliance requirements. MD Aakash Kenney MD 03/01/2025 1:13:38 PM This report has been signed electronically.Aakash Prater MD Number of Addenda: 0 Note Initiated On: 03/01/2025 12:44 PM Scope In: Scope Out: Endoscopy Department at [facility] - [address] [place] [phone] IMPRESSION: - Preparation of the colon was [...] AM EST Performed at: 01 - [facility] [address] [id number] Shuttle Preparation Supervisor: Vikki Quiros MD, Phone: [phone] Nasim Dean MD LAB BLOOD ORDERABLES Kira l Result [facility] 1 from Last 3 Months or Most Recently Relevant to Health Maintenance Insurance MEDICAID - [place] [employer] MEDICARE Care Teams Ore Sampler Relationship Specialty Start Date End Date Delroy Haile MD [address] [place] [address] Dr Ebonie [place] PCP - General 03/28/23
== END 2025-06-15 13:26 | disposition home or self-care (01) ==
LOC: HO.ENCR 12:56
PROVIDERS: PCP Family Medicine; Visit Provider Dietitian, Registered
DX: E11.9 Type 2 diabetes mellitus without complications (principal); Z79.4 Long term (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

== ENCOUNTER → 2025-06-15 12:55 | Outpatient (BNVA) | payer MEDICARE, SELFPAY | PROVIDERS: PCP Family Medicine; Visit Provider Dietitian, Registered | DX: E11.9 Type 2 diabetes mellitus without complications (principal); Z79.4 Long term (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 | CPT/HCPCS: 97803 ==

== ENCOUNTER 2025-08-30 10:34 | Outpatient (AMB) | payer MEDICARE, SELFPAY ==
--- NOTE | 2025-08-30 11:01 | MHC.PC.OV ---
Vital Signs 08/30/25 11:07 Height 5 ft 6.5 in Weight 190 lb 4 oz BMI 30.2 BP 102/60 Blood Pressure Location Rt brachial Position Sitting Pulse 97 Pulse Source Pulse Oximeter Temp 98.2 F Temp Source Temporal Artery Scan Pulse Oximetry (%) 95 Oxygen Delivery Method Room Air Intake Visit Reasons: f/u diabetes, HTN Intake Note: Armando presents in the office today to follow up on his diabetes and hypertension. Allergies No Known Allergies Allergy (Verified 08/30/25 11:04) Medication List - Last Reconciled 08/30/25 by Delroy Haile MD atorvastatin 40 mg PO DAILY 90 days blood sugar diagnostic (FreeStyle Lite Strips) Use daily As directed to check blood glucose blood-glucose meter (FreeStyle Lite Meter kit) Use daily As directed to check blood sugars blood-glucose sensor (FreeStyle Sheng 3 Plus Sensor device) As directed every 14 days blood-glucose,ergonomics technician,cont (FreeStyle Sheng 3 [place]) As directed bupropion HCl SR 200 mg PO BID buspirone 15 mg PO BID dexamethasone 1 mg PO DAILY docusate sodium (Colace) 100 mg PO DAILY empagliflozin (Jardiance) 10 mg PO DAILY fluoxetine 40 mg PO DAILY insulin glargine (Lantus Solostar U-100 Insulin) 20 units (0.2 mL) subcut QPM 30 days ketoconazole 1% 1 appl topical 2XW lancets (FreeStyle Lancets) use daily as directed to check blood glucose losartan 12.5 mg (1/2 x 25 mg) PO DAILY 90 days metformin ER 1,000 mg (2 x 500 mg) PO DAILY metoprolol succinate ER 100 mg PO DAILY multivitamin 1 tab PO DAILY olanzapine 2.5 mg PO BEDTIME PRN 90 days pen needle, diabetic (BD Mildred 2nd Gen Pen Needle) Daily As directed, 90 days [probiotic .] sildenafil 100 mg PO DAILY 30 days spironolactone 12.5 mg (1/2 x 25 mg) PO DAILY 90 days topiramate 150 mg PO BEDTIME trazodone 200 mg PO BEDTIME PRN triamcinolone acetonide 0.025% 1 appl topical DAILY Tobacco use date assessed: 08/30/25 Dental Screening Dental Screen Date: 08/30/25 Did you have a dental visit in the last 12 months?: Yes Did you have a dental problem in the last 6 months where you did not have access to dental care?: No Was dental information given to patient?: Patient has dentist HPI f/u diabetes, HTN HPI Details 65 y/o male presents to f/u diabetes, HTN. A1c today 08/30/25 6.8%. He is on Lantus 20 units, metformin 1000mg daily. BP today 102/60, 97p. Labs from March show mild anemia. [facility] Medical History (Updated 08/30/25 @ 11:29 by Andraed Zepeda) Adenoma of both adrenal glands Surgical History Hx of prostatectomy Hx of colonoscopy Family History Mother Depression Father No problems noted. Maternal Grandfather Diabetes mellitus Maternal Grandmother Diabetes mellitus Other FH: mental illness Substance abuse Social History (Updated 08/30/25 @ 11:07 by Cici Hurtado CMA) Housing: House Alcohol intake: current Patient Tobacco Use Status: Former Tobacco user Tobacco use type: Cigarette Cigarettes Per Day: 15 e-Cigarette/Vaping Use: Never Used Second Hand Smoke Exposure: No service: No Current occupational status: retired and disabled Current occupational exposures/hazards: No Cognitive needs: No Hearing needs: No Vision needs: No Questionnaire Thrive Questionnaire Date Thrive assessed: 12/28/24 I am a: Patient What is your living situation today?: I have a steady place to live Within the past 12 months, did the food you bought not last and you didn't have the money to get more?: Sometimes True Within the past 12 months, did you worry whether your food would run out before you got money to buy more?: Never true Do you have trouble paying for medicines?: No Do you have trouble getting transportation to medical appointments?: No Do you have trouble paying your heating and electricity bill?: No Do you have trouble taking care of your child, family member or friend?: No Do you have trouble with day-to-day activities such as bathing, preparing meals, shopping, managing finances, etc.?: No Are you currently unemployed and looking for a job?: I choose not to answer this question Are you interested in more education?: No Currently or been in a relationship where the following occur: Controlled Emotionally THRIVE Score: 2 DOROTEO-7 AMB Questionnaire DOROTEO-7 Date DOROTEO - 7 assessed: 12/31/24 Source: Developed by Drs. Escobar Nelson, Anna Malik, Franck eBrgman and colleagues, with an educational francesca from [employer]. Review of Systems Const Denies chills, Denies fatigue, Denies fever(s), Denies headache(s) and Denies weakness ENT Denies dizziness and Denies headache(s) Card Denies dyspnea Resp Denies cough, Denies dyspnea, Denies wheezing and Denies other (shortness of breath) Musc Denies numbness and Denies tingling Neuro Denies dizziness, Denies headache(s), Denies numbness, Denies tingling and Denies weakness Psych Denies anxiety and Denies depression Endo Denies fatigue Aller/Immun Denies wheezing Physical exam (Primary Care) Vital Signs: Last Vital Signs Temp 98.2 F 08/30/25 11:07 Pulse 97 08/30/25 11:07 BP 102/60 08/30/25 11:07 Pulse Ox 95 08/30/25 11:07 Oxygen Delivery Method Room Air 08/30/25 11:07 BMI result Body Mass Index 30.2 Tobacco/Smoking Status: Tobacco use Status Tobacco use date assessed 08/30/25 08/30/25 11:11 Patient Tobacco Use Status Former Tobacco user 08/30/25 11:07 Tobacco use type Cigarette 08/30/25 11:07 e-Cigarette/Vaping Use Never Used 08/30/25 11:07 Thrive Assessment: Date of Thrive Assessment Date Thrive assessed 12/28/24 08/30/25 11:03 Currently or been in a relationship where the following occur: Controlled Emotionally Const General: well developed; No acute distress Nutritional Appearance: well nourished Orientation/consciousness: patient oriented x3 HENMT Head: Yes normocephalic and Yes atraumatic Eyes General: appearance normal, both eyes and all related structures Pupils: Equal, round and reactive pupils present EOM: EOMs intact bilaterally Resp Effort & Inspection: normal respiratory effort Neuro General: patient oriented x3 and gait normal Cranial nerves: Yes Equal, round and reactive pupils present Psych Affect: normal affect Results AMB Hemoglobin A1c AMB Hemoglobin A1c 6.8 % Last Edit by Cici Hurtado CMA on 08/30/25 11:20 Results Reviewed Results Reviewed: Laboratory Last Values Hgb A1c (Clinic) 6.8 % (4.0-6.0) H 08/30/25 11:12 Coding Level of Care Code Est Pt Level 4 (45019) Diagnoses Controlled type 2 diabetes mellitus E11.9 Hypertension due to endocrine disorder I15.2 Hypertension type: secondary to endocrine disorders Coronary artery disease I25.10 Mild anemia D64.9 Immunization counseling Z71.85 Assessment & Plan Assessment & Plan (1) Controlled type 2 diabetes mellitus: Code(s): E11.9 - Type 2 diabetes mellitus without complications Category: Medical Plan: A1c increased from 6.4% to 6.8%. Still at goal of less than 7.0% Has had concomitant increase in his weight Encouraged weight loss and diabetic diet Continue current medication regimen (2) Hypertension: Code(s): I10 - Essential (primary) hypertension Category: Medical Qualifiers: Hypertension type: secondary to endocrine disorders Qualified Code(s): I15.2 - Hypertension secondary to endocrine disorders Plan: Blood pressure is still running a little low. Will have him decrease metoprolol from 100 mg daily to 75 mg daily. He can call if blood pressures are not well controlled. (3) Coronary artery disease: Code(s): I25.10 - Atherosclerotic heart disease of [place] coronary artery without angina pectoris Category: Medical Plan: Stable (4) Mild anemia: Code(s): D64.9 - Anemia, unspecified Category: Medical Plan: Patient had mild anemia with mildly low MCV previously. Had would lab work but he has not gotten his drawn yet. He will get this drawn prior to next visit in we can review. Will call patient sooner than action required (5) Immunization counseling: Code(s): Z71.85 - Encounter for immunization safety counseling Category: Medical Plan: Patient recently had COVID, influenza, pneumonia, Tdap and shingles shots. He is up-to-date with recommended vaccines. Orders: Orders Testosterone, Free/Total Today N52.9 - Male erectile dysfunction, unspecified Basic Metabolic Panel Today D35.01 - Benign neoplasm of right adrenal gland, D35.02 - Benign neoplasm of left adrenal gland AMB Hemoglobin A1c Today E11.9 - Type 2 diabetes mellitus without complications Medications: New metoprolol succinate ER 75 mg (1.5 x 50 mg) PO DAILY 135 tabs 3RF 90 days
[2025-08-30 11:07] VITALS: BP 102/60; PULSE 97; TEMP 36.8; O2SAT 95; BMI 30.2
--- OUTSIDE RECORDS SUMMARY | 2025-08-30 11:52 | XMS_ITS | Clinical Summary ---
Author Organization [employer] Address [address] [facility] 7 [place] [address] Care Team Providers Care Curb Worker Name Role Phone Unavailable Primary Care Provider [...] - Risk 60-74 years 1-dose series) 2021 Eye Exam 01/08/2025 01/08/2024, 06/2024, 01/08/2024, Additional history exists COVID-19 Vaccine (3 - season) 2025 04/15/2021, 03/25/2021 Influenza Vaccine (#1) 2025 07/07/2017 DTaP/Tdap/Td Vaccines [...] patient's age to complete this topic Insurance [facility] [address] [place] [id number] [address] Care Teams Curb Worker Relationship Specialty Start Date End Date Delroy Haile [address] [place] [address] [place] [address] Primary Care Provider 09/30/23
--- OUTSIDE RECORDS SUMMARY | 2025-08-30 11:52 | XMS_ITS | Clinical Summary ---
Author Organization [facility] Address [address] [place] [address] Phone Care Team Providers Care Contemporary Or Modern Dancer Name Role Phone Dleroy Haile MD Primary Care Provider +- [phone] Allergies No known active allergies Medications metFORMIN [...] Diagnosed Date Coronary artery disease invo lving [place] coronary artery of [place] heart without angina pectoris 06/14/2021 Overview (10/21/2024): [...] EF 25% at the time of his [place] Improved to 45-50% November 2020 Last Assessment & Plan: The patient's LVEF has recovered with catheter directed medical therapy and 25% of the time of his [place] to 40-50% in November 2020. He has [...] with myocardial perfusion; Future Lipid panel; Future Surgical History Surgery Date Site/Laterality Comments PROSTATECTOMY CORONARY ANGIOPLASTY WITH STENT PLACEMENT Medical History Medical History Date Comments Diabetes mellitus ([facility], [facility] V28) Hypertension Hyperlipidemia CAD (coronary artery disease) STEMI (ST elevation myocardi al infarction) ([facility] [place], [facility] V28) ONE HEART STENT Family History Medical [...] Safety Answer Date Record ed Physical Abuse Unrecognized value 03/01/2025 Verbal Abuse Unrecognized value 03/01/2025 Sex and Gender Information Value Date [...] series) 2021 Cholesterol Screening (Lipid Panel) 11/10/2022 HIV Screening 11/10/2022 Hepatitis C Screening 11/10/2022 Medicare Annual Wellness Visit 11/10/2022 Social Influencers of Health Screening 11/10/2022 Diabetes: Annual Urine Albumin-Creatinine Ratio (uACR) 10/27/2024 Diabetes: Blood Sugar Contro l Test (HGBA1C) 10/27/2024 Depression Screening 12/02/2024 COVID-19 Vaccine (3 - 2024-2 6 season) 2025 04/15/2021, 03/25/2021 Influenza Vaccine (#1) 2025 07/07/2017 Diabetes: Annual [...] Maintenance Results * COLONOSCOPY Anesthesia - MAC; [facility] ENDOSCOPY (03/01/2025 1:10 PM EDT) Anatomical Region [...] for surveillance. Narrative 03/01/2025 1:13 PM EDT [facility] GI Patient Name: Armando Martinez Procedure [...] left colon. Procedure Code(s): --- Professional --- 98539, Colonoscopy, flexible; with removal of tumor(s), polyp(s), or other lesion(s) by snare technique Diagnosis Code(s): --- Professional --- Z86.010, Personal history of colonic polyps D12.0, Benign neoplasm of cecum CPT copyright 2020 [employer]. All rights reserved. The codes documented in this report are preliminary and upon blend technician review may be revised to meet current compliance requirements. MD Aakash Kenney MD 03/01/2025 1:13:38 PM This report has been signed electronically.Aakash Prater MD Number of Addenda: 0 Note Initiated On: 03/01/2025 12:44 PM Scope In: Scope Out: Endoscopy Department at [facility] - [address] [place] [phone] Procedure Note Aakash Prater MD - 03/01/2025 [facility] GI Patient Name: Armando Martinez Procedure [...] left colon. Procedure Code(s): --- Professional --- 59973, Colonoscopy, flexible; with removal of tumor(s), polyp(s), or other lesion(s) by snare technique Diagnosis Code(s): --- Professional --- Z86.010, Personal history of colonic polyps D12.0, Benign neoplasm of cecum CPT copyright 2020 [employer]. All rights reserved. The codes documented in this report are preliminary and upon blend technician reviewmay be revised to meet current compliance requirements. MD Aakash Kenney MD 03/01/2025 1:13:38 PM This report has been signed electronically.Aakash Prater MD Number of Addenda: 0 Note Initiated On: 03/01/2025 12:44 PM Scope In: Scope Out: Endoscopy Department at [facility] - [address] [place] [phone] IMPRESSION: - Preparation of the colon was [...] AM EST Performed at: 01 - [facility] [address] [id number] Heel Sander: Vikki Quiros MD, Phone: [phone] Nasim Dean MD LAB BLOOD ORDERABLES Kira nolasco Result [facility] 1 from Last 3 Months or Most Recently Relevant to Health Maintenance Insurance MEDICAID - [place] UNITED [employer]ARE MEDICARE Care Teams Contemporary Or Modern Dancer Relationship Specialty Start Date End Date Delroy Haile MD [address] [place] [address] Dr Romanyobecky [place] PCP - General 03/28/23
== END 2025-08-30 11:38 | disposition home or self-care (01) ==
LOC: HO.HMCFM 10:35
PROVIDERS: PCP Family Medicine; Visit Provider Family Medicine
DX: E11.9 Type 2 diabetes mellitus without complications (principal); I15.2 Hypertension secondary to endocrine disorders; I25.10 Atherosclerotic heart disease of native coronary artery without angina pectoris; D64.9 Anemia, unspecified; Z71.85 Encounter for immunization safety counseling

== ENCOUNTER → 2025-08-30 10:34 | Outpatient (BNVA) | payer MEDICARE, SELFPAY | PROVIDERS: PCP Family Medicine; Visit Provider Family Medicine | DX: E11.9 Type 2 diabetes mellitus without complications (principal); I15.2 Hypertension secondary to endocrine disorders; I25.10 Atherosclerotic heart disease of native coronary artery without angina pectoris; D64.9 Anemia, unspecified; Z71.85 Encounter for immunization safety counseling; Z87.891 Personal history of nicotine dependence; Z79.899 Other long term (current) drug therapy | CPT/HCPCS: 83036; 99212 ==

== ENCOUNTER 2025-10-15 10:08 | Outpatient (REF) | payer MEDICARE, SELFPAY ==
[2025-10-15 11:10] LABS: MANUAL DIFF FLAG NO
[2025-10-15 11:45] LABS: Hematocrit 45.6 % (42.0-52.0); Hemoglobin 13.9 g/dl (14.0-18.0); Imm Gran Abs Auto 0.03 X10*3/uL (0.00-0.03); Imm Gran Pct Auto 0.3 % (0.0-0.4); Lymphocytes Absolute Auto 2.6 X10*3/uL (1.2-4.9); Mean Corpuscular HGB Conc 30.5 g/dl (31.0-36.0); Mean Corpuscular Hemoglobin 24.8 pg (27.0-33.0); Mean Corpuscular Volume 81.4 fL (80.0-98.0); NRBC Abs Auto 0.000 X10*3/uL (0.0-0.012); NRBC Pct Auto 0.0 /100WBC (0.0-0.2); Platelet Count 217 X10*3/uL (160-400); Red Blood Count 5.60 X10*6/uL (4.60-5.80); White Blood Count 10.0 X10*3/uL (4.8-10.8)
--- OUTSIDE RECORDS SUMMARY | 2025-10-15 12:24 | XMS_ITS | Clinical Summary ---
Author Organization [facility] Address [address] [place] [address] Phone Care Team Providers Care Hoop Flaring Machine Operator Name Role Phone Delroy Haile MD Primary Care Provider [phone] Allergies No known active allergies Medications metFORMIN [...] Diagnosed Date Coronary artery disease invo lving [place] coronary artery of [place] heart without angina pectoris 06/14/2021 Overview [...] EF 25% at the time of his [place] Improved to 45-50% November 2020 Last Assessment & Plan: The patient's LVEF has recovered with catheter directed medical therapy and 25% of the time of his [place] to 40-50% in November 2020. He has [...] Encounters Date Type Department Care Team Description 09/29/2025 Telephone [facility] - [address] [place] [address] Nasim Dean MD from Last 3 Months Surgical History Surgery Date Site/Laterality Comments PROSTATECTOMY CORONARY ANGIOPLASTY WITH STENT PLACEMENT Medical History Medical History Date Comments Diabetes mellitus [place] [place] [facility] V28) Hypertension Hyperlipidemia CAD (coronary artery disease) STEMI (ST elevation myocardi al infarction) ([facility] [place], [facility] V28) ONE HEART STENT Family History Medical [...] Care Team (Late st Contact Info) Description 01/19/2026 8:40 AM EST Office Visit [facility] - [facility] [address] [facility] [address] [place] [address] Alicia Mitchell, FREDRICK [address] [place] [address] [place] [address] Health Maintenance Due Date Last Done Comments Diabetes: Annual Foot Exam 1971 Diabetes: Annual Retina Eye Exam 1971 RSV Immunization Adult Patients (1 - Risk 50-74 years 1-dose series) 2011 Zoster Vaccines (1 of 2) 2011 Pneumococcal Vaccine: 50+ Years (2 of 2 - PCV) 01/06/2018 01/06/2017 Cholesterol Screening (Lipid Panel) 11/10/2022 HIV Screening [...] for surveillance. Narrative 03/01/2025 1:13 PM EDT [facility] GI Patient Name: Armando Martinez Procedure [...] left colon. Procedure Code(s): --- Professional --- 66570, Colonoscopy, flexible; with removal of tumor(s), polyp(s), or other lesion(s) by snare technique Diagnosis Code(s): --- Professional --- Z86.010, Personal history of colonic polyps D12.0, Benign neoplasm of cecum CPT copyright 2020 [employer]. All rights reserved. The codes documented in this report are preliminary and upon b2b sales executive review may be revised to meet current compliance requirements. MD Aakash Kenney MD 03/01/2025 1:13:38 PM This report has been signed electronically.Aakash Prater MD Number of Addenda: 0 Note Initiated On: 03/01/2025 12:44 PM Scope In: Scope Out: Endoscopy Department at [facility] - [address] [place] [phone] Procedure Note Aakash Prater MD - 03/01/2025 [facility] GI Patient Name: rAmando Martinez Procedure Date: 03/01/2025 12:44 PM Date [...] left colon. Procedure Code(s): --- Professional --- 66358, Colonoscopy, flexible; with removal of tumor(s), polyp(s), or other lesion(s) by snare technique Diagnosis Code(s): --- Professional --- Z86.010, Personal history of colonic polyps D12.0, Benign neoplasm of cecum CPT copyright 2020 [employer]. All rights reserved. The codes documented in this report are preliminary and upon b2b sales executive reviewmay be revised to meet current compliance requirements. MD Aakash Kenney MD 03/01/2025 1:13:38 PM This report has been signed electronically.Aakash Prater MD Number of Addenda: 0 Note Initiated On: 03/01/2025 12:44 PM Scope In: Scope Out: Endoscopy Department at [facility] - [address] [place] [phone] IMPRESSION: - Preparation of the colon was [...] results. - [facility] Aakash Prater MD GI~PROCEDURE ORDERABLES Final R [...] EST Performed at: 01 - [facility] [address] [id number] Education Instructor: Vikki Quiros MD, Phone: [phone] Nasim Dean MD LAB BLOOD ORDERABLES Kira l Result [facility] 1 from Last 3 Months or Most Recently Relevant to Health Maintenance Insurance MEDICAID - [place] UNITED [employer]ARE MEDICARE Care Teams Hoop Flaring Machine Operator Relationship Specialty Start Date End Date Delroy Haile MD [address] [place] [address] Dr Ebonie [place] PCP - General 03/28/23
[2025-10-15 12:54] LABS: Alanine Aminotransferase 22 U/L (0-40); Albumin Level 4.4 g/dL (3.5-5.0); Alkaline Phosphatase 99 U/L (39-117); Anion Gap 11 (12-20); Aspartate Amino Transferase 20 U/L (5-37); Blood Urea Nitrogen 21 mg/dL (9-16); Calcium 9.2 mg/dL (8.4-10.2); Carbon Dioxide 26 mmol/L (22-29); Chloride 107 mmol/L (96-108); Estimated Glomerular Filt Rate > 60; Iron 47 mcg/dL (45-160); Percent Iron Saturation 13 % (15-50); Potassium 4.0 mmol/L (3.3-5.1); Sodium 140 mmol/L (135-145); Total Iron Binding Capacity 372 mcg/dL (228-428); Total Protein 7.5 g/dL (6.5-8.0); Unsaturated Iron Binding 325 ug/dL
[2025-10-15 18:54] LABS: Microalbum/Creatinine Ratio Ur 9.6 ug/mg cr (<30)
[2025-10-21 13:34] LABS: Testosterone, Free 40.9 pg/mL (35.0-155.0)
== END 2025-10-15 10:09 | disposition home or self-care (01) ==
LOC: HO.WFDLDS 10:08
PROVIDERS: Referring Provider Student in an Organized Health Care Education/Training Program; Visit Provider Family Medicine
DX: Z00.00 Encounter for general adult medical examination without abnormal findings (principal); D35.01 Benign neoplasm of right adrenal gland; D35.02 Benign neoplasm of left adrenal gland; I25.10 Atherosclerotic heart disease of native coronary artery without angina pectoris; E11.9 Type 2 diabetes mellitus without complications; N52.9 Male erectile dysfunction, unspecified; Z79.4 Long term (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
CPT/HCPCS: 36415; 80048; 80053; 80299; 82043; 82533; 82570; 83540; 84402; 84403; 85025

== ENCOUNTER 2025-10-18 09:57 | Outpatient (AMB) | payer MEDICARE, SELFPAY ==
--- NOTE | 2025-10-18 10:08 | A.OFFPC_ITS ---
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 Required: No Allergies No Known Allergies Allergy (Verified 10/18/25 10:09) Medication List - Last Reconciled 10/18/25 by Delroy Haile MD atorvastatin 40 mg PO DAILY 90 days blood sugar diagnostic (FreeStyle Lite Strips) Use daily As directed to check blood glucose blood-glucose meter (FreeStyle Lite Meter kit) Use daily As directed to check blood sugars blood-glucose sensor (FreeStyle Sheng 3 Plus Sensor device) As directed every 14 days blood-glucose,station helper,cont (FreeStyle Sheng 3 [place]) As directed bupropion HCl SR 200 mg PO BID buspirone 15 mg PO BID dexamethasone 1 mg PO DAILY docusate sodium (Colace) 100 mg PO DAILY empagliflozin (Jardiance) 10 mg PO DAILY fluoxetine 40 mg PO DAILY insulin glargine (Lantus Solostar U-100 Insulin) 20 units (0.2 mL) subcut QPM 30 days ketoconazole 1% 1 appl topical 2XW lancets (FreeStyle Lancets) use daily as directed to check blood glucose losartan 12.5 mg (1/2 x 25 mg) PO DAILY 90 days metformin ER 1,000 mg (2 x 500 mg) PO DAILY metoprolol succinate ER 75 mg (1.5 x 50 mg) PO DAILY 90 days multivitamin 1 tab PO DAILY olanzapine 2.5 mg PO BEDTIME PRN 90 days pen needle, diabetic (BD Mildred 2nd Gen Pen Needle) Daily As directed, 90 days [probiotic .] sildenafil 100 mg PO DAILY 30 days spironolactone 12.5 mg (1/2 x 25 mg) PO DAILY 90 days topiramate 150 mg PO BEDTIME trazodone 200 mg PO BEDTIME PRN triamcinolone acetonide 0.025% 1 appl topical DAILY Tobacco use date assessed: 10/18/25 Fall risk assessment: No Falls in past year Last assessed Fall Risk: 10/18/25 Dental Screening Dental Screen Date: 10/18/25 Did you have a dental visit in the last 12 months?: Yes Did you have a dental problem in the last 6 months where you did not have access to dental care?: Yes Was dental information given to patient?: No HPI Annual PE - see comments HPI Details 65 y/o male presents for a CPE with f/u labs and health maint. Labs drawn 10/15/25. Reviewed labs with pt. Fasting glucose 140. Last A1c 08/30/25 6.8%. No recent lipid panel to review. Liver enzymes are fine. Testosterone levels are pending. Pt had some complaints of fogginess/fatigue. Blood pressure today 100/60, 75p. He is on spironolactone 12.5mg daily, metoprolol 75mg, losartan 12.5mg daily. He is unsure what he is taking exactly for his blood pressure. HPI Comments History of Present Illness Details Documentation assistance for Delroy Haile MD, was provided by Andrade Zepeda,? [employer] Vault Installer on 10/18/2025 at 10:43 AM EST. I, Dr. Haile, have read, observed, and verified documentation. ?? [facility] Medical History Adenoma of both adrenal glands Surgical History Hx of prostatectomy Hx of colonoscopy Family History Mother Depression Father No problems noted. Maternal Grandfather Diabetes mellitus Maternal Grandmother Diabetes mellitus Other FH: mental illness Substance abuse Social History Housing: House Alcohol intake: current Patient Tobacco Use Status: Former Tobacco user Tobacco use type: Cigarette Cigarettes Per Day: 15 e-Cigarette/Vaping Use: Never Used Second Hand Smoke Exposure: No service: No Current occupational status: retired and disabled Current occupational exposures/hazards: No Cognitive needs: No Hearing needs: No Vision needs: No Questionnaire PHQ-9 Over the last 2 weeks, how often have you been bothered by any of the following problems? 1. Little interest or pleasure in doing things: more than half the days 2. Feeling down, depressed, or hopeless: more than half the days 3. Trouble falling or staying asleep, or sleeping too much: more than half the days 4. Feeling tired or having little energy: several days 5. Poor appetite or overeating: several days 6. Feeling bad about yourself - or that you are a failure or have let yourself or your family down: several days 7. Trouble concentrating on things, such as reading the newspaper or watching television: several days 8. Moving or speaking so slowly that other people could have noticed. Or the opposite - being so fidgety or restless that you have been moving around a lot more than usual: more than half the days 9. Thoughts that you would be better off or of hurting yourself in some way: not at all Total score: 12 Depression Screening Interpretation: Positive Depression Screening Done: Yes 23083 - PHQ-9 Billing: Yes Source: Developed by Drs. Escobar Nelson, Anna Malik, Franck Bergman and colleagues, with an educational francesca from [employer]. Thrive Questionnaire Date Thrive assessed: 10/18/25 I am a: Patient What is your living situation today?: I have a steady place to live Within the past 12 months, did the food you bought not last and you didn't have the money to get more?: Sometimes True Within the past 12 months, did you worry whether your food would run out before you got money to buy more?: Never true Do you have trouble paying for medicines?: No Do you have trouble getting transportation to medical appointments?: No Do you have trouble paying your heating and electricity bill?: No Do you have trouble taking care of your child, family member or friend?: No Do you have trouble with day-to-day activities such as bathing, preparing meals, shopping, managing finances, etc.?: No Are you currently unemployed and looking for a job?: I choose not to answer this question Are you interested in more education?: No Currently or been in a relationship where the following occur: Controlled Emotionally THRIVE Score: 2 AUDIT C Alcohol Use Questionnaire (AUDIT-C) 1. How often do you have a drink containing alcohol?: Never Total Score: 0 Score Reviewed/Action Taken: Yes DOROTEO-7 AMB Questionnaire DOROTEO-7 Date DOROTEO - 7 assessed: 12/31/24 Feeling nervous, anxious, or on edge: 2 = More than half the days Not being able to stop or control worryin = Several days Worrying too much about different things: 1 = Several days Trouble relaxin = Several days Being so restless that it is hard to sit still: 1 = Several days Becoming easily annoyed or irritable: 2 = More than half the days Feeling afraid as if something awful might happen: 2 = More than half the days Total DOROTEO-7 score (0-4 normal; 5-9 mild; 10-14 moderate; 15-21 severe): 10 Source: Developed by Drs. Escobar Nelson, Anna Malik, Franck Bergman and colleagues, with an educational francesca from [employer]. DOROTEO-7 Assessment Billing DOROTEO-7 Assessment Tool: DOROTEO-7 Assessment 23679 ACT Questionnaire In the past 4 weeks, how much of the time did your asthma keep you from getting as much done at work, school or at home?: None of the time During the past 4 weeks, how often have you had shortness of breath?: Not at all During the past 4 weeks, how often did your asthma symptoms wake you up at night or earlier than usual in the morning?: Not at all During the past 4 weeks, how often have you had to use your rescue inhaler or nebulizer medication?: Not at all How would you rate your asthma control during the past 4 weeks?: Completely controlled ACT Interpretation: Negative Score: 25 Review of Systems Const Denies chills, Reports fatigue, Denies fever(s), Denies headache(s) and Denies weakness Eyes Denies change in vision ENT Denies dizziness, Denies headache(s), Denies hearing loss, Denies nasal congestion, Denies sinus pain, Denies sinus pressure and Denies sore throat Card Denies chest pain, Denies lightheadedness, Denies dyspnea and Denies other (palpitations) Resp Denies cough, Denies dyspnea and Denies wheezing GI Denies abdominal pain, Denies melena, Denies hematochezia, Denies change in bowel habits, Denies dyspepsia and Denies nausea Denies hematuria and Denies dysuria Musc Denies abnormal gait, Denies myalgias, Denies arthralgias, Denies numbness and Denies tingling Skin/Breast Denies rash, Denies unusual bruising and Denies wounds Neuro Denies abnormal gait, Denies dizziness, Denies headache(s), Denies memory loss, Denies numbness, Denies Sensory deficit (Neuro), Denies tingling and Denies weakness Psych Denies anxiety, Denies depression and Denies memory loss Endo Denies cold intolerance, Reports fatigue, Denies heat intolerance, Denies polydipsia and Denies polyuria David/Lymph Denies easy bleeding and Denies easy bruising Aller/Immun Denies wheezing Physical exam (Primary Care) Vital Signs: Last Vital Signs Temp 98.7 F 10/18/25 10:14 Pulse 75 10/18/25 10:14 Resp 14 10/18/25 10:14 BP 100/60 10/18/25 10:14 Pulse Ox 94 10/18/25 10:14 Oxygen Delivery Method Room Air 10/18/25 10:14 BMI result Body Mass Index 31.5 Tobacco/Smoking Status: Tobacco use Status Tobacco use date assessed 10/18/25 10/18/25 10:17 Patient Tobacco Use Status Former Tobacco user 10/18/25 10:17 Tobacco use type Cigarette 10/18/25 10:17 e-Cigarette/Vaping Use Never Used 10/18/25 10:17 PHQ-9: PHQ-9 Score PHQ-9: Total score 12 10/18/25 10:38 Depression Screening Interpretation: Positive Thrive Assessment: Date of Thrive Assessment Date Thrive assessed 10/18/25 10/18/25 10:17 Currently or been in a relationship where the following occur: Controlled Emotionally Const General: no acute distress, well developed, alert and awake Nutritional Appearance: well nourished Orientation/consciousness: patient oriented x3 HENMT Head: Yes normocephalic and Yes atraumatic Ears: hearing grossly normal bilaterally and TM's normal bilaterally General nose exam: Normal external nose present and Normal nares present Mouth: Normal oral and palatal mucosa present and moist mucous membranes Teeth and gingiva: dentition normal Throat: Yes posterior oropharynx normal Eyes General: appearance normal, both eyes and all related structures Pupils: Equal, round and reactive pupils present and Pupil accommodation reflex normal EOM: EOMs intact bilaterally Neck Neck: Yes normal visual inspection, Yes no lymphadenopathy and Yes trachea midline Thyroid: Thyroid normal Carotids: no bruits Lymphatic: no lymphadenopathy noted Chest Chest palpation & inspection: normal inspection of the chest Resp Effort & Inspection: normal respiratory effort Auscultation: clear to auscultation bilaterally Cardio Rate: regular rate Rhythm: regular rhythm Heart sounds: S1 normal heart sound present, S2 normal heart sound present, no gallops, no murmurs and no rubs Bruits: no abdominal aortic bruits and no carotid bruits GI Palpation (GI): No Abdominal aortic bruit present, Soft to palpation, nontender, No hepatosplenomegaly present and No Rebound tenderness present Auscultation: normal bowel sounds General: Yes no CVA tenderness Back/Spine/Pelvis Back: no CVA tenderness Cervical Spine: cervical ROM normal and No Cervical spine tenderness Thoracic/Lumbar Spine: thoraco-lumbar ROM normal, No pain with thoraco-lumbar ROM, No thoracic spinal tenderness and No lumbar spinal tenderness Skin Lesions: no lesions Rashes: no rashes Trauma: no lacerations or abrasions Wounds: no wounds Nails: normal Neuro General: patient oriented x3 Cranial nerves: Yes Equal, round and reactive pupils present Cognition (Neuro): normal cognition Gait exam (Neuro): gait abnormal Motor exam (neuro): 5/5 motor strength present throughout Sensory Exam: No Sensory deficit (Neuro) Deep tendon reflexes (DTR's): Right patellar reflex intensity grade: 2+ and Left patellar reflex intensity grade: 2+ Extrem General: Yes normal to inspection and No edema Psych Appearance: grossly normal Affect: normal affect Attitude: cooperative Thought process: Normal thought process present Coding Level of Care Code Est Pt Level 3 (49146) Est Pt Prev Care 40-64y(20673) Diagnoses Adult general medical exam Z00.00 Hypertension due to endocrine disorder I15.2 Hypertension type: secondary to endocrine disorders Coronary artery disease I25.10 Fatigue R53.83 Unsteady gait R26.81 Lower extremity weakness R29.898 Controlled type 2 diabetes mellitus E11.9 Screening for colon cancer Z12.11 Screening for prostate cancer Z12.5 Additional Codes Asthma Control Questionnaire - ACT Interpretation: Negative ([id number]) DOROTEO-7 Assessment Billing - DOROTEO-7 Assessment Tool: DOROTEO-7 Assessment 90129 ([id number]) PHQ-9 - 47901 - PHQ-9 Billing: Yes ([id number]) Assessment & Plan Assessment & Plan (1) Adult general medical exam: Code(s): Z00.00 - Encounter for general adult medical examination without abnormal findings Category: Medical Plan: 65-year-old male presents for complete physical exam (2) Hypertension: Code(s): I10 - Essential (primary) hypertension Category: Medical Qualifiers: Hypertension type: secondary to endocrine disorders Qualified Code(s): I15.2 - Hypertension secondary to endocrine disorders Plan: Blood pressure is too low. He is well under goal of less than 130/80 Will have him ease up on metoprolol (3) Coronary artery disease: Code(s): I25.10 - Atherosclerotic heart disease of [place] coronary artery without angina pectoris Category: Medical Plan: stable Follow-up with Cardiology (4) Fatigue: Code(s): R53.83 - Other fatigue Category: Medical Plan: He notes some fatigue which may be due to low blood pressures and metoprolol is little too high. Decreasing metoprolol Encouraged good hydration Checking labs including testosterone which is pending (5) Unsteady gait: Code(s): R26.81 - Unsteadiness on feet Category: Medical Plan: Lower extremity weakness and unsteady gait Start physical therapy (6) Lower extremity weakness: Code(s): R29.898 - Other symptoms and signs involving the musculoskeletal system Category: Medical Plan: As above (7) Controlled type 2 diabetes mellitus: Code(s): E11.9 - Type 2 diabetes mellitus without complications Category: Medical Plan: A1c was in controlled range at last check in August. Will repeat this in November (8) Screening for colon cancer: Code(s): Z12.11 - Encounter for screening for malignant neoplasm of colon Category: Medical Plan: Colonoscopy in March showed polyps. He is followed by Dr. Prater and should have an appointment in early 2025 Follow-up with gastroenterology as recommended (9) Screening for prostate cancer: Code(s): Z12.5 - Encounter for screening for malignant neoplasm of prostate Category: Medical Plan: Due for PSA level Check Ordered Orders: Orders Comprehensive Met. Panel Today I25.10 - Atherosclerotic heart disease of [place] coronary artery without angina pectoris Prostate Specific Antigen Scr Today Z12.5 - Encounter for screening for malignant neoplasm of prostate, Z85.46 - Personal history of malignant neoplasm of prostate PT Evaluation and Treatment Today R29.898 - Other symptoms and signs involving the musculoskeletal system Complete Blood Count Auto Diff Today I25.10 - Atherosclerotic heart disease of [place] coronary artery without angina pectoris, Z00.00 - Encounter for general adult medical examination without abnormal findings Medications: Changed From metoprolol succinate ER 75 mg (1.5 x 50 mg) PO DAILY 90 days 135 tabs 3RF To metoprolol succinate ER 50 mg PO DAILY 90 tabs 3RF 90 days
[2025-10-18 10:14] VITALS: BP 100/60; PULSE 75; RESP 14; TEMP 37.1; O2SAT 94; BMI 31.5
== END 2025-10-18 11:12 | disposition home or self-care (01) ==
LOC: HO.HMCFM 09:58
PROVIDERS: PCP Family Medicine; Visit Provider Family Medicine
DX: Z00.00 Encounter for general adult medical examination without abnormal findings (principal); E11.9 Type 2 diabetes mellitus without complications; I15.2 Hypertension secondary to endocrine disorders; I25.10 Atherosclerotic heart disease of native coronary artery without angina pectoris; R53.83 Other fatigue; R26.81 Unsteadiness on feet; R29.898 Other symptoms and signs involving the musculoskeletal system; Z12.5 Encounter for screening for malignant neoplasm of prostate; Z85.46 Personal history of malignant neoplasm of prostate

== ENCOUNTER → 2025-10-18 09:57 | Outpatient (BNVA) | payer MEDICARE, SELFPAY | PROVIDERS: PCP Family Medicine; Visit Provider Family Medicine | DX: Z00.00 Encounter for general adult medical examination without abnormal findings (principal); I10 Essential (primary) hypertension; E11.9 Type 2 diabetes mellitus without complications; I15.2 Hypertension secondary to endocrine disorders; I25.10 Atherosclerotic heart disease of native coronary artery without angina pectoris; R53.83 Other fatigue; R26.81 Unsteadiness on feet; R29.898 Other symptoms and signs involving the musculoskeletal system; Z85.46 Personal history of malignant neoplasm of prostate | CPT/HCPCS: 96127; 96160; 99396 ==

== ENCOUNTER 2025-11-30 10:05 | Outpatient (AMB) | payer MEDICARE, SELFPAY ==
--- NOTE | 2025-11-30 10:29 | MHC.PC.OV ---
Vital Signs 11/30/25 10:38 Height 5 ft 6.5 in Weight 196 lb BMI 31.2 BP 116/68 Blood Pressure Location Rt brachial Position Sitting Respiration 15 Pulse 83 Pulse Source Pulse Oximeter Temp 97.2 F Temp Source Temporal Artery Scan Pulse Oximetry (%) 95 Oxygen Delivery Method Room Air Intake Visit Reasons: f/u diabetes, HTN - see comments Dietitian Teaching Required: No Allergies No Known Allergies Allergy (Verified 11/30/25 10:30) Medication List - Last Reconciled 11/30/25 by Delroy Haile MD atorvastatin 40 mg PO DAILY 90 days blood sugar diagnostic (FreeStyle Lite Strips) Use daily As directed to check blood glucose blood-glucose meter (FreeStyle Lite Meter kit) Use daily As directed to check blood sugars blood-glucose sensor (FreeStyle Sheng 3 Plus Sensor device) As directed every 14 days blood-glucose,reading assistant,cont (FreeStyle Sheng 3 [place]) As directed bupropion HCl SR 200 mg PO BID buspirone 15 mg PO BID dexamethasone 1 mg PO DAILY docusate sodium (Colace) 100 mg PO DAILY empagliflozin (Jardiance) 10 mg PO DAILY fluoxetine 40 mg PO DAILY insulin glargine (Lantus Solostar U-100 Insulin) 20 units (0.2 mL) subcut QPM 30 days ketoconazole 1% 1 appl topical 2XW lancets (FreeStyle Lancets) use daily as directed to check blood glucose losartan 12.5 mg (1/2 x 25 mg) PO DAILY 90 days metformin ER 1,000 mg (2 x 500 mg) PO DAILY metoprolol succinate ER 50 mg PO DAILY 90 days multivitamin 1 tab PO DAILY olanzapine 2.5 mg PO BEDTIME PRN 90 days pen needle, diabetic (BD Mildred 2nd Gen Pen Needle) Daily As directed, 90 days [probiotic .] sildenafil 100 mg PO DAILY 30 days spironolactone 12.5 mg (1/2 x 25 mg) PO DAILY 90 days topiramate 150 mg PO BEDTIME trazodone 200 mg PO BEDTIME PRN triamcinolone acetonide 0.025% 1 appl topical DAILY Tobacco use date assessed: 11/30/25 Dental Screening Dental Screen Date: 11/30/25 Did you have a dental visit in the last 12 months?: Yes Did you have a dental problem in the last 6 months where you did not have access to dental care?: No Was dental information given to patient?: Patient has dentist HPI f/u diabetes, HTN - see comments HPI Details 65 y/o male presents to f/u diabetes, HTN. Blood pressure today 116/68, 83p. He is on metoprolol 50mg, spironolactone 12.5mg, losartan 12.5mg daily. A1c today 7.4%. PFS Medical History Adenoma of both adrenal glands Surgical History Hx of prostatectomy Hx of colonoscopy Family History Mother Depression Father No problems noted. Maternal Grandfather Diabetes mellitus Maternal Grandmother Diabetes mellitus Other FH: mental illness Substance abuse Social History (Updated 11/30/25 @ 10:30 by Cici Hurtado CMA) Housing: House Alcohol intake: current Patient Tobacco Use Status: Former Tobacco user Tobacco use type: Cigarette Cigarettes Per Day: 15 e-Cigarette/Vaping Use: Never Used Second Hand Smoke Exposure: No service: No Current occupational status: retired and disabled Current occupational exposures/hazards: No Cognitive needs: No Hearing needs: No Vision needs: No Questionnaire Thrive Questionnaire Date Thrive assessed: 10/18/25 I am a: Patient What is your living situation today?: I have a steady place to live Within the past 12 months, did the food you bought not last and you didn't have the money to get more?: Sometimes True Within the past 12 months, did you worry whether your food would run out before you got money to buy more?: Never true Do you have trouble paying for medicines?: No Do you have trouble getting transportation to medical appointments?: No Do you have trouble paying your heating and electricity bill?: No Do you have trouble taking care of your child, family member or friend?: No Do you have trouble with day-to-day activities such as bathing, preparing meals, shopping, managing finances, etc.?: No Are you currently unemployed and looking for a job?: I choose not to answer this question Are you interested in more education?: No Currently or been in a relationship where the following occur: Controlled Emotionally THRIVE Score: 2 DOROTEO-7 AMB Questionnaire DOROTEO-7 Date DOROTEO - 7 assessed: 12/31/24 Source: Developed by Drs. Escobar Nelson, Anna Malik, Franck Bergman and colleagues, with an educational francesca from [employer]. Review of Systems Const Denies chills, Denies fatigue, Denies fever(s), Denies headache(s) and Denies weakness ENT Denies dizziness and Denies headache(s) Card Denies dyspnea Resp Denies cough, Denies dyspnea, Denies wheezing and Denies other (shortness of breath) Musc Denies numbness and Denies tingling Neuro Denies dizziness, Denies headache(s), Denies numbness, Denies tingling and Denies weakness Psych Denies anxiety and Denies depression Endo Denies fatigue Aller/Immun Denies wheezing Physical exam (Primary Care) Vital Signs: Last Vital Signs Temp 97.2 F 11/30/25 10:38 Pulse 83 11/30/25 10:38 Resp 15 11/30/25 10:38 BP 116/68 11/30/25 10:38 Pulse Ox 95 11/30/25 10:38 Oxygen Delivery Method Room Air 11/30/25 10:38 BMI result Body Mass Index 31.2 Tobacco/Smoking Status: Tobacco use Status Tobacco use date assessed 11/30/25 11/30/25 10:31 Patient Tobacco Use Status Former Tobacco user 11/30/25 10:31 Tobacco use type Cigarette 11/30/25 10:31 e-Cigarette/Vaping Use Never Used 11/30/25 10:31 Thrive Assessment: Date of Thrive Assessment Date Thrive assessed 10/18/25 11/30/25 10:31 Currently or been in a relationship where the following occur: Controlled Emotionally Const General: well developed; No acute distress Nutritional Appearance: well nourished Orientation/consciousness: patient oriented x3 HENMT Head: Yes normocephalic and Yes atraumatic Eyes General: appearance normal, both eyes and all related structures Pupils: Equal, round and reactive pupils present EOM: EOMs intact bilaterally Resp Effort & Inspection: normal respiratory effort Neuro General: patient oriented x3 and gait normal Cranial nerves: Yes Equal, round and reactive pupils present Psych Affect: normal affect Results AMB Hemoglobin A1c AMB Hemoglobin A1c 7.4 % Last Edit by Cici Hurtado CMA on 11/30/25 10:44 Results Reviewed Results Reviewed: Laboratory Last Values Hgb A1c (Clinic) 7.4 % (4.0-6.0) H 11/30/25 10:42 Coding Level of Care Code Est Pt Level 4 (42706) Diagnoses Controlled type 2 diabetes mellitus E11.9 Hypertension due to endocrine disorder I15.2 Hypertension type: secondary to endocrine disorders Coronary artery disease I25.10 Hypersomnia G47.10 Assessment & Plan Assessment & Plan (1) Controlled type 2 diabetes mellitus: Code(s): E11.9 - Type 2 diabetes mellitus without complications Category: Medical Plan: A1c climbed from 6.8% to 7.4%. Suboptimal control. Goal is less than 7% Increasing Jardiance Continue metformin as prescribed (2) Hypertension: Code(s): I10 - Essential (primary) hypertension Category: Medical Qualifiers: Hypertension type: secondary to endocrine disorders Qualified Code(s): I15.2 - Hypertension secondary to endocrine disorders Plan: Had decrease metoprolol due to some fatigue, weakness and dizziness with standing up Blood pressure now 116/68. Good control. Goal is less than 130/80 No longer low. Continue current medication regimen (3) Coronary artery disease: Code(s): I25.10 - Atherosclerotic heart disease of [place] coronary artery without angina pectoris Category: Medical Plan: Stable (4) Hypersomnia: Code(s): G47.10 - Hypersomnia, unspecified Category: Medical Plan: Patient notices some daytime fatigue/sleepiness Referred to sleep medicine Orders: Orders AMB Hemoglobin A1c Today E11.9 - Type 2 diabetes mellitus without complications Referrals Sleep Medicine Referral G47.10 - Hypersomnia, unspecified Medications: Changed From empagliflozin (Jardiance) 10 mg PO DAILY To empagliflozin 25 mg PO DAILY 90 tabs 3RF 90 days
[2025-11-30 10:38] VITALS: BP 116/68; PULSE 83; RESP 15; TEMP 36.2; O2SAT 95; BMI 31.2
--- OUTSIDE RECORDS SUMMARY | 2025-11-30 13:20 | XMS_ITS | Clinical Summary ---
Author Organization [employer] Address [address] [facility] 7 [place] [address] Care Team Providers Care Turn Operator Name Role Phone Unavailable Primary Care [...] Screening 1979 Diabetes: Urine Protein Screening 1980 RSV Patients and Patients Aged 60 years or older (1 - Risk 50-74 years 1-dose series) 2011 Zoster Vaccines (1 of 2) 2011 Pneumococcal Vaccine: 50+ Years (2 of 2 - PCV) 01/06/2018 01/06/2017 Eye Exam 01/08/2025 01/08/2024, 06/2024, 01/08/2024, Additional history exists COVID-19 Vaccine (3 - 2024- season) 2025 04/15/2021, 03/25/2021 Influenza Vaccine (#1) 2025 07/07/2017 DTaP/Tdap/Td Vaccines (2 - Td or Tdap) 11/14/2027 11/14/2017 Colonoscopy 03/01/2035 03/01/2025, 10/03, 10/27/2024 Colorectal Cancer Screening 03/01/2035 HIB Vaccines Aged Out No longer eligi [...] patient's age to complete this topic [facility] [address] [place] [id number] [place] [address] Care Teams Turn Operator Relationship Specialty Start Date End Date Delroy Haile [address] [place] [address] [place] [address] Primary Care Provider 09/30/23
--- OUTSIDE RECORDS SUMMARY | 2025-11-30 13:20 | XMS_ITS | Clinical Summary ---
Author Organization [facility] Address [address] [place] [address] Phone Care Team Providers Care Auto Service Advisor Name Role Phone Delroy Haile MD Primary Care Provider +- [phone] Allergies No known active allergies Medications metFORMIN [...] Diagnosed Date Coronary artery disease invo lving [place] coronary artery of [place] heart without angina pectoris 06/14/2021 Overview (10/21/2024): [...] EF 25% at the time of his TX Improved to 45-50% November 2020 Last Assessment & Plan: The patient's LVEF has recovered with catheter directed medical therapy and 25% of the time of his TX to 40-50% in November 2020. He has [...] Encounters Date Type Department Care Team Description 10/21/2025 Telephone [facility] - [address] [place] [address] Nasim Dean MD 09/29/2025 Telephone [facility] [address] [place] [address] Nasim Dean MD from Last 3 Months Surgical History Surgery Date Site/Laterality Comments PROSTATECTOMY CORONARY ANGIOPLASTY WITH STENT PLACEMENT Medical History Medical History Date Comments Diabetes mellitus ([facility], [facility] V28) Hypertension Hyperlipidemia CAD (coronary artery disease) STEMI (ST elevation myocardi al infarction) ([facility] V24, [facility] V28) ONE HEART STENT Family History Medical [...] not to disclose 2024 10:02 AM EDT Last Filed Vital Signs Vital Sign [...] Description 01/19/2026 8:40 AM EST Office Visit [facility] - [facility] [address] [facility] [address] [place] [address] Alicia Mitchell NP [address] [place] [address] [place] [address] Health Maintenance Due Date Last Done Comments [...] Maintenance Results * COLONOSCOPY Anesthesia - MAC; [facility] ENDOSCOPY (03/01/2025 1:10 PM EDT) Anatomical Region [...] for surveillance. Narrative 03/01/2025 1:13 PM EDT [facility] GI Patient Name: Armando Martinez Procedure [...] left colon. Procedure Code(s): --- Professional --- 60308, Colonoscopy, flexible; with removal of tumor(s), polyp(s), or other lesion(s) by snare technique Diagnosis Code(s): --- Professional --- Z86.010, Personal history of colonic polyps D12.0, Benign neoplasm of cecum CPT copyright 2020 [employer]. All rights reserved. The codes documented in this report are preliminary and upon proof carrier review may be revised to meet current compliance requirements. MD Aakash Kenney MD 03/01/2025 1:13:38 PM This report has been signed electronically.Aakash Prater MD Number of Addenda: 0 Note Initiated On: 03/01/2025 12:44 PM Scope In: Scope Out: Endoscopy Department at [facility] - [address] [place] [phone] Procedure Note Aakash Prater MD - 03/01/2025 [facility] GI Patient Name: Armando Martinez Procedure [...] left colon. Procedure Code(s): --- Professional --- 48586, Colonoscopy, flexible; with removal of tumor(s), polyp(s), or other lesion(s) by snare technique Diagnosis Code(s): --- Professional --- Z86.010, Personal history of colonic polyps D12.0, Benign neoplasm of cecum CPT copyright 2020 [employer]. All rights reserved. The codes documented in this report are preliminary and upon proof carrier reviewmay be revised to meet current compliance requirements. MD Aakash Kenney MD 03/01/2025 1:13:38 PM This report has been signed electronically.Aakash Prater MD Number of Addenda: 0 Note Initiated On: 03/01/2025 12:44 PM Scope In: Scope Out: Endoscopy Department at [facility] - [address] [place] [id number] IMPRESSION: - Preparation of the colon was [...] results. - Repeat colonoscopy in 9 months formerly [facility]. Aakash Prater MD GI~PROCEDURE ORDERABLES Final R [...] AM EST Performed at: 01 - [facility] [address] [id number] Crawler Tractor Operator: Vikki Quiros MD, Phone: [phone] Nasim Dean MD LAB BLOOD ORDERABLES Kira nolasco Result [facility] 1 from Last 3 Months or Most Recently Relevant to Health Maintenance Insurance MEDICAID - [place] [employer] MEDICARE Care Teams Auto Service Advisor Relationship Specialty Start Date End Date Delroy Haile MD [address] [place] [address] Dr Ebonie [place] PCP - General 03/28/23
== END 2025-11-30 11:26 | disposition home or self-care (01) ==
LOC: HO.HMCFM 10:06
PROVIDERS: PCP Family Medicine; Visit Provider Family Medicine
DX: E11.9 Type 2 diabetes mellitus without complications (principal); I15.2 Hypertension secondary to endocrine disorders; I25.10 Atherosclerotic heart disease of native coronary artery without angina pectoris; G47.10 Hypersomnia, unspecified

== ENCOUNTER 2025-11-30 10:05 | Outpatient (REF) | payer MEDICARE, SELFPAY ==
[2025-11-30 15:27] LABS: MANUAL DIFF FLAG NO
[2025-11-30 15:44] LABS: Hematocrit 47.4 % (42.0-52.0); Hemoglobin 14.3 g/dl (14.0-18.0); Imm Gran Abs Auto 0.05 X10*3/uL (0.00-0.03); Imm Gran Pct Auto 0.5 % (0.0-0.4); Lymphocytes Absolute Auto 2.7 X10*3/uL (1.2-4.9); Mean Corpuscular HGB Conc 30.2 g/dl (31.0-36.0); Mean Corpuscular Hemoglobin 24.3 pg (27.0-33.0); Mean Corpuscular Volume 80.5 fL (80.0-98.0); NRBC Abs Auto 0.000 X10*3/uL (0.0-0.012); NRBC Pct Auto 0.0 /100WBC (0.0-0.2); Platelet Count 202 X10*3/uL (160-400); Red Blood Count 5.89 X10*6/uL (4.60-5.80); White Blood Count 10.7 X10*3/uL (4.8-10.8)
[2025-11-30 16:03] LABS: Alanine Aminotransferase 25 U/L (0-40); Albumin Level 4.4 g/dL (3.5-5.0); Alkaline Phosphatase 101 U/L (39-117); Anion Gap 10 (12-20); Aspartate Amino Transferase 23 U/L (5-37); Blood Urea Nitrogen 24 mg/dL (9-16); Calcium 9.8 mg/dL (8.4-10.2); Carbon Dioxide 27 mmol/L (22-29); Chloride 109 mmol/L (96-108); Estimated Glomerular Filt Rate > 60; Potassium 4.2 mmol/L (3.3-5.1); Sodium 142 mmol/L (135-145); Total Protein 7.5 g/dL (6.5-8.0)
== END 2025-11-30 10:06 | disposition home or self-care (01) ==
LOC: HO.WFDLDS 10:05
PROVIDERS: PCP Family Medicine; Visit Provider Family Medicine
DX: Z00.00 Encounter for general adult medical examination without abnormal findings (principal); I25.10 Atherosclerotic heart disease of native coronary artery without angina pectoris; E11.9 Type 2 diabetes mellitus without complications; I10 Essential (primary) hypertension; I15.2 Hypertension secondary to endocrine disorders; G47.10 Hypersomnia, unspecified; Z12.5 Encounter for screening for malignant neoplasm of prostate; Z85.46 Personal history of malignant neoplasm of prostate
CPT/HCPCS: 36415; 80053; 83036; 84153; 85025; 99212